=== PATIENT | male | born 1950 | race Caucasian/White ===

== ENCOUNTER 2020-08-20 18:45 | Inpatient (IN) | payer MEDICARE, BC, OTHER ==
[2020-08-20] MEDS ORDERED: Sodium Chloride 0.9% 10 ML Syringe FLUSH PRN (19:17)
--- NOTE | 2020-08-20 20:26 | CR ---
HISTORY: Shortness of breath. COVID-19 positive. COMPARISON: None available FINDINGS: A portable erect AP view of the chest was obtained at 1946 hours. There is mild right greater than left superior perihilar patchy infiltrate, along with mild patchy right infrahilar infiltrate. Findings are suggestive of an atypical pneumonia such as COVID-19 infection. There is a tiny left pleural effusion. There is mild patchy density in the left lateral lung base, probably atelectasis. No vascular engorgement is seen to suggest congestive failure. The heart is mildly enlarged. The mediastinum is otherwise normal in appearance. The osseous structures are normal in appearance for the patient`s age. IMPRESSION: Mild patchy right greater than left superior perihilar and mild right infrahilar infiltrates, consistent with an atypical pneumonia such as COVID-19. Tiny left pleural effusion. Heart mildly enlarged. Dictated by Ben Ford MD @ Aug 20 2020 8:21PM Signed by Dr. Ben Ford @ Aug 20 2020 8:23PM
[2020-08-20 20:27] LABS: BLOOD UREA NITROGEN,BUN 28 mg/dL (7.0-18.0); CARBON DIOXIDE,CO2 22.6 mmol/L (21.0-32.0); CHLORIDE,CL 97 mmol/L (98-107); GLUCOSE RANDOM 186 mg/dL (74-106); POTASSIUM,K 3.7 mmol/L (3.5-5.1); SODIUM,NA 133 mmol/L (136-148)
[2020-08-20] MEDS ORDERED: Acetaminophen 325 MG Tab PO PRN (21:37)
--- NOTE | 2020-08-20 21:44 | PCM.HP.2 ---
H&P History of Present Illness - General Date of Service: 08/20/20 Admit Problem/Dx: Admission Diagnosis/Problem Admission Diagnosis/Problem Respiratory failure with hypoxia - History of Present Illness Initial Comments - Free Text/Narative: his 65 year old male, with PMH of IN, HTN, hypercholesteremia, COPD and hx of SBO came in for evaluation of SOB and increasing fatigue. He was diagnosed with covid 19 in last week of July, was checked in [facility], started on oral doxy and dexamethasone. He says he has only 1 pill left of his meds. But over last few days his oxygen saturation has been dropping, so he came t the ER. In the ER his oxygen saturation was 78%. He was started on 5l nasal cannula. CXR co nsistent with atypical PNA. Troponin neg, EKG unremarkable to acute ischemia. He was admitted for covid pneumonia. - Related Data Allergies/Adverse Reactions: Allergies Allergy/AdvReac Type Severity Reaction Status Date / Time No Known Allergies Allergy Verified 08/20/20 21:56 Home Medications: Home Meds Acetaminophen [Tylenol Extra Strength] 1 tab PO BID 07/07/15 [History] Aspirin [Halfprin] 1 tab PO DAILY 07/07/15 [History] Fenofibrate Nanocrystallized [Fenofibrate] 1 tab PO DAILY 07/07/15 [History] Olmesartan Medoxomil [Benicar] 1 tab PO DAILY 07/07/15 [History] Omeprazole 1 tab PO ASDIRECTED 07/07/15 [History] Sildenafil Citrate [Viagra] 1 tab PO ASDIRECTED 07/07/15 [History] Simvastatin [Zocor] 20 mg PO DAILY 07/07/15 [History] amLODIPine Besylate [Amlodipine Besylate] 10 mg PO DAILY 07/07/15 [History] carvediloL [Carvedilol] 0.5 tab PO BID 07/07/15 [History] Budesonide/Formoterol Fumarate [Symbicort 160-4.5 Mcg Inhaler] 2 puff INH BID 08/20/20 [History] Doxycycline [Vibramycin] 1 tab PO BID 08/20/20 [History] cycloSPORINE [Restasis Multidose] 1 drop EYEBOTH BID 08/20/20 [History] dexAMETHasone [Dexamethasone] 1 tab PO BID 08/20/20 [History] Past Medical History Cardiovascular History: Reports: High Cholesterol, Hypertension, IN Respiratory History: Reports: COPD Musculoskeletal History: Reports: Arthritis - Infectious Disease History Infectious Disease History: Reports: Novel Coronavirus - Past Surgical History Musculoskeletal Surgical History: Reports: Joint Replacement, Shoulder Surgery Social & Family History - Tobacco Use Smoking Status *Q: Never Smoker - Recreational Drug Use Recreational Drug Use: No H&P Review of Systems - Review of Systems: Review Of Systems: See Below General: Reports: Malaise, Weakness, Fatigue. Denies: Fever, Chills Pulmonary: Reports: Shortness of Breath, Cough, Sputum. Denies: Wheezing Cardiovascular: Reports: Dyspnea on Exertion. Denies: Chest Pain, Palpitations, Orthopnea, PND, Edema, Lightheadedness Gastrointestinal: Denies: Abdominal Pain, Anorexia, Bloody Stool, Constipation, Hematochezia, Melena Genitourinary: Denies: Dysuria, Frequency, Burning, Pain Musculoskeletal: Denies: Neck Pain, Shoulder Pain, Arm Pain Skin: Denies: Cyanosis, Jaundice, Mottled, Pallor Psychiatric: Denies: Confusion, Depression, Mood Lability Exam - Exam Exam: See Below - Vital Signs Vital Signs: Last Vital Signs Temp 36.0 C L 08/20/20 18:48 Pulse 84 08/20/20 18:48 Resp 28 H 08/20/20 18:48 BP 133/83 08/20/20 18:48 Pulse Ox 78 L 08/20/20 18:48 Weight: 122.47 kg - Exam General: Alert, Oriented Neck: Supple, Trachea Midline Lungs: Normal Respiratory Effort, Crackles, Rhonchi Cardiovascular: Regular Rate, Regular Rhythm, Normal S1, Normal S2 GI/Abdominal Exam: Normal Bowel Sounds, Soft, Non-Tender - Patient Data Lab Results Last 24 hrs: Laboratory Results - last 24 hr 08/20/20 08/20/20 Range/Units 19:36 19:36 INR 1.07 D-Dimer, Quantitative 0.52 H (0.0-0.50) mg/L FEU Sodium 133 L (136-148) mmol/L Potassium 3.7 (3.5-5.1) mmol/L Chloride 97 L (98-107) mmol/L Carbon Dioxide 22.6 (21.0-32.0) mmol/L BUN 28 H (7.0-18.0) mg/dL Creatinine 1.3 (0.8-1.3) mg/dL Est Cr Clr Drug Dosing 56.38 mL/min Estimated GFR (MDRD) 54.3 ml/min Glucose 186 H (74-106) mg/dL Calcium 8.6 (8.5-10.1) mg/dL Total Bilirubin 0.5 (0.2-1.0) mg/dL AST 21 (15-37) IU/L ALT 24 (14-63) IU/L Alkaline Phosphatase 49 (46-116) U/L Troponin I < 0.050 (0.000-0.056) ng/mL Total Protein 7.2 (6.4-8.2) g/dL Albumin 3.1 L (3.4-5.0) g/dL Globulin 4.1 H (2.6-4.0) g/dL Albumin/Globulin Ratio 0.8 L (0.9-1.6) Result Diagrams: 08/20/20 21:12 08/20/20 19:36 Sepsis Event Note - Evaluation Sepsis Screening Result: No Definite Risk - Focused Exam Vital Signs: Vital Signs Temp Pulse Resp BP Pulse Ox 08/20/20 18:48 36.0 C L 84 28 H 133/83 78 L - Problem List (1) COVID-19 SNOMED Code(s): 986190708 ICD Code: U07.1 - COVID-19 Status: Acute Current Visit: Yes (2) Hypoxia SNOMED Code(s): 776367267 ICD Code: R09.02 - HYPOXEMIA Status: Acute Current Visit: Yes (3) H/O acute myocardial infarction SNOMED Code(s): 437901909 ICD Code: I25.2 - OLD MYOCARDIAL INFARCTION Status: Chronic Priority: Low Current Visit: No (4) HTN (hypertension) SNOMED Code(s): 10044418 ICD Code: I10 - ESSENTIAL (PRIMARY) HYPERTENSION Status: Chronic Priority: Low Current Visit: No Qualifiers: Hypertension type: essential hypertension Qualified Code(s): I10 - Essential (primary) hypertension (5) Hypercholesteremia SNOMED Code(s): 67073178 ICD Code: E78.0 - PURE HYPERCHOLESTEROLEMIA * DO NOT USE * Status: Chronic Priority: Low Current Visit: No (6) Rheumatoid arthritis SNOMED Code(s): 81208522 ICD Code: M06.9 - RHEUMATOID ARTHRITIS, UNSPECIFIED Status: Chronic Priority: Low Current Visit: No Qualifiers: Rheumatoid arthritis location: unspecified site Rheumatoid factor presence: unspecified presence Qualified Code(s): M06.9 - Rheumatoid arthritis, unspecified (7) Sleep apnea SNOMED Code(s): 61660117 ICD Code: G47.30 - SLEEP APNEA, UNSPECIFIED Status: Chronic Priority: Low Current Visit: No Qualifiers: Sleep apnea type: unspecified type Qualified Code(s): G47.30 - Sleep apnea, unspecified Problem List Initiated/Reviewed/Updated: Yes Orders Last 24hrs: Active Orders 24 hr Category Date Time Status Admission Status [Patient Status] [ADT] Stat ADT 08/20/20 20:53 Active Ambulate [RC] ASDIRECTED Care 08/20/20 21:37 Active Antiembolic Devices [RC] PER UNIT ROUTINE Care 08/20/20 21:38 Active Cardiac Monitoring [RC] . DIRECTED Care 08/20/20 19:17 Active EKG 12 Lead [EKG Documentation Completion] [RC] STAT Care 08/20/20 18:55 Active Oxygen Therapy [RC] PRN Care 08/20/20 21:37 Active Pulse Oximetry [RC] ASDIRECTED Care 08/20/20 19:17 Active VTE/DVT Education [RC] PER UNIT ROUTINE Care 08/20/20 21:37 Active Vital Signs [RC] Q4H Care 08/20/20 21:37 Active Heart Healthy Diet [DIET] Diet 08/20/20 Dinner Active CBC WITH AUTO DIFF [HEME] AM Lab 08/21/20 05:11 Ordered CBC WITH AUTO DIFF [HEME] Stat Lab 08/20/20 21:12 Received CMP [COMPREHENSIVE METABOLIC PN,CMP] [CHEM] AM Lab 08/21/20 05:11 Ordered CORONAVIRUS COVID-19 MANAS [MOLEC] Stat Lab 08/20/20 20:55 Received MAGNESIUM [CHEM] AM Lab 08/21/20 05:11 Ordered PHOSPHORUS [CHEM] AM Lab 08/21/20 05:11 Ordered Acetaminophen [TylenoL] Med 08/20/20 21:37 Active 650 mg PO Q4H PRN Enoxaparin [Lovenox] Med 08/20/20 21:45 Active 40 mg SUBCUT BID Remdesivir (Eua) [Remdesivir (EUA)] 100 mg Med 08/21/20 09:00 Ordered Sodium Chloride 0.9% [Normal Saline] 100 ml IV Q24H Sodium Chloride 0.9% [Saline Flush] Med 08/20/20 19:17 Active 10 ml FLUSH ASDIRECTED PRN Sodium Chloride 0.9% [Saline Flush] Med 08/20/20 19:17 Active 2.5 ml FLUSH ASDIRECTED PRN dexAMETHasone Med 08/20/20 21:45 Active 10 mg PO DAILY Saline Lock Insert [OM.PC] Stat Oth 08/20/20 19:17 Ordered Sequential Compression Device [OM.PC] Per Unit Routine Oth 08/20/20 21:38 Ordered Medication Orders Acetaminophen (Tylenol) 650 mg PO Q4H PRN PRN Reason: Pain (Mild 1-3)/fever Dexamethasone (Dexamethasone) 10 mg PO DAILY SERGIO Enoxaparin Sodium (Lovenox) 40 mg SUBCUT BID SERGIO Remdesivir 100 mg/ Sodium (Chloride) 100 mls @ 100 mls/hr IV Q24H SERGIO Sodium Chloride (Saline Flush) 10 ml FLUSH ASDIRECTED PRN PRN Reason: Keep Vein Open Sodium Chloride (Saline Flush) 2.5 ml FLUSH ASDIRECTED PRN PRN Reason: Keep Vein Open Assessment/Plan Comment:: 70 y/o M admitted for covid PNA, hypoxic respiratory failure h/o COPD, sleep apnea, not on home o2 oxygen as needed, cont dexamethasone, Remdesivir and BID lovenox. IV Levaquin Combivent prn as needed CPAP at night Patient given fact sheet and explain emergency use FDA authorization of Remdesivir. He was explained side effects including hepatitis and anaphylaxis and consents to treatment.
[2020-08-20] MEDS ORDERED: Albuterol/Ipratropium 4 GM Inhalation Spray INH PRN (22:49)
[2020-08-20] MEDS ORDERED: Acetaminophen 500 MG Tab PO SCH (23:00)
[2020-08-20] MEDS: Dexamethasone 4 MG Tab PO SCH (23:13)
[2020-08-20] MEDS: Enoxaparin 40 MG/0.4 ML Syringe SUBCUT SCH (23:15)
[2020-08-21] MEDS: Levofloxacin/Dextrose 5%-Water 750 MG in Premix Bag 1 BAG IV SCH ×2 (00:50→22:30)
--- NOTE | 2020-08-21 03:18 | EDM.PDOC ---
ED HPI GENERAL MEDICAL PROBLEM - General Chief Complaint: Respiratory Problem Stated Complaint: COPD, COVID Time Seen by Provider: 08/20/20 18:54 - History of Present Illness INITIAL COMMENTS - FREE TEXT/NARRATIVE: CHIEF COMPLAINT(S): Shortness of breath HISTORY OF PRESENT ILLNESS: This is a 70-year-old man with a recent diagnosis of coronavirus who is currently on dexamethasone who comes to the emergency department with a chief complaint of shortness of breath. The patient states that he is was diagnosed approximately 8 days ago with coronavirus. He states that since that time he was discharged from the emergency department at another institution with dexamethasone twice a day. He states that he was starting to feel better and then did experience some increase shortness of breath today. He states that he does have a cough which is nonproductive. He denies any chest pain, abdominal pain, nausea or vomiting. He states that he came to the emergency department because his oxygen saturation at home was 84% on room air. He denies any headache or any other symptoms. REVIEW OF SYSTEMS: [Constitutional: Denies fever, chills. Eyes: Denies eye pain Ears, Nose, Mouth, & Throat: Denies earache Cardiovascular: Denies chest pain Respiratory: Positive for shortness of breath and cough Gastrointestinal: Denies Nausea, vomiting, diarrhea, hematochezia. Genitourinary: Denies hematuria Skin:Denies a rash Neurological: Denies blurred vision Psychiatric: Denies depression] PAST MEDICAL HISTORY: As per history of present illness and as reviewed below otherwise noncontributory. SURGICAL HISTORY: As per history of present illness and as reviewed below otherwise noncontributory. SOCIAL HISTORY: As per history of present illness and as reviewed below otherwise noncontributory. FAMILY HISTORY: As per history of present illness and as reviewed below otherwise noncontributory. EXAMINATION OF ORGAN SYSTEMS/BODY AREAS: Constitutional: Blood pressure was 133/83, heart rate 84, respiratory rate 28 with a oxygen saturation of 78% on room air. 92% on 5 L nasal cannula. Temperature 36.0 General: Elderly gentleman who appears to be in mild respiratory distress. Psychiatric: [Appropriate mood and affect.] Eyes: [No scleral icterus or conjunctival erythema] ENMT: [Moist mucous membranes. No pharyngeal erythema] Cardiovascular: [Regular, rate, and rythym.] [No gallops, murmurs, or rubs.] Bilateral upper extremity pulses symmetric and intact. No peripheral edema. No JVD. Respiratory: [Lungs clear to auscultation bilaterally.][No wheezes, rales, or rhonchi.] Tachypneic but speaking in full sentences Gastrointestinal: [Soft, non-tender, non-distended.] [Normoactive bowel sounds] Genitourinary: [No suprapubic tenderness] Musculoskeletal: [Normal range of motion.] Skin: [No lesions or abrasions.] Neurological: [Alert, GCS 15] MEDICAL DECISION MAKING AND COURSE IN THE ED WITH INTERPRETATION/REVIEW OF DIAGNOSTIC STUDIES: This is a 70-year-old man with a recent diagnosis of coronavirus who comes to the emergency department with hypoxia and tachypnea who is speaking well but in mild respiratory distress. At this time we did place the patient on nasal cannula given his room air saturation with improvement in his saturation. We will obtain CBC, CMP, troponin, d-dimer, and coags. Will obtain a chest x-ray. Will place patient on cardiac monitoring and pulse oximetry. The radiological images were viewed by myself along with reading the report from the radiologist. Chest x-ray reveals mild patchy right greater than left suprahilar perihilar and mid right infrahilar infiltrates consistent with atypical pneumonia such as COVID. There is a tiny left pleural effusion and cardiomegaly. Twelve-lead EKG interpreted by myself. [Normal sinus rhythm] at a rate of 68beats per minute. Left axis. OH interval is 139ms. QRS duration is 118ms. ST segments are [normal without elevations or depressions]. Solitary Q wave in lead V2. [Hypertrophy not noted]. No prior EKGs in our system interpretation: Sinus rhythm with mildly widened QRS and likely old anterior septal infarct Laboratory: CBC reveals leukocytosis of 12.35. Thrombocytopenia at 114. Neutrophilic predominance. CMP reveals hyponatremia at 133, hypochloremia at 97 without any acidosis. Hyperglycemia at 186. Troponin x1 is negative. D-dimer is slightly above normal at 0.52. Coags are within normal limits After labs and imaging I did discuss with patient that given his oxygen requirement I like to admit him to the hospital. He was amenable to this plan. I contacted Dr. Veras who accepted the patient for admission. DISPOSITION: The patient was admitted in stable condition CONDITION: Fair PROCEDURES: [None] FINAL IMPRESSION(S)/DIAGNOSES: 1. Acute hypoxic respiratory failure secondary to coronavirus Steve Coronel M.D. - Related Data Allergies Allergy/AdvReac Type Severity Reaction Status Date / Time No Known Allergies Allergy Verified 08/20/20 21:56 Home Meds: Home Meds Acetaminophen [Tylenol Extra Strength] 1 tab PO BID 07/07/15 [History] Aspirin [Halfprin] 1 tab PO DAILY 07/07/15 [History] Fenofibrate Nanocrystallized [Fenofibrate] 1 tab PO DAILY 07/07/15 [History] Olmesartan Medoxomil [Benicar] 1 tab PO DAILY 07/07/15 [History] Omeprazole 1 tab PO ASDIRECTED 07/07/15 [History] Sildenafil Citrate [Viagra] 1 tab PO ASDIRECTED 07/07/15 [History] Simvastatin [Zocor] 20 mg PO DAILY 07/07/15 [History] amLODIPine Besylate [Amlodipine Besylate] 10 mg PO DAILY 07/07/15 [History] carvediloL [Carvedilol] 0.5 tab PO BID 07/07/15 [History] Albuterol Sulfate [Albuterol Sulfate Hfa] 2 puff IH Q4HR PRN 08/20/20 [History] Budesonide/Formoterol Fumarate [Symbicort 160-4.5 Mcg Inhaler] 2 puff INH BID [History] Doxycycline [Vibramycin] 1 tab PO BID 08/20/20 [History] cycloSPORINE [Restasis Multidose] 1 drop EYEBOTH BID 08/20/20 [History] dexAMETHasone [Dexamethasone] 1 tab PO BID 08/20/20 [History] Past Medical History HEENT History: Reports: Other (See Below) Other HEENT History: dry eyes Cardiovascular History: Reports: High Cholesterol, Hypertension, ID Respiratory History: Reports: COPD Other Respiratory History: CPAP at night Gastrointestinal History: Reports: Hiatal Hernia Musculoskeletal History: Reports: Arthritis Immunologic History: Reports: None Oncologic (Cancer) History: Reports: None - Infectious Disease History Infectious Disease History: Reports: Novel Coronavirus - Past Surgical History Musculoskeletal Surgical History: Reports: Joint Replacement, Shoulder Surgery Social & Family History - Family History Family Medical History: Noncontributory - Tobacco Use Smoking Status *Q: Never Smoker Used Tobacco, but Quit: Yes Month/Year Tobacco Last Used: 40 years ago Second Hand Smoke Exposure: No - Caffeine Use Caffeine Use: Reports: Coffee Other Caffeine Use: 1 or 2 cups per day - Alcohol Use Days Per Week of Alcohol Use: 7 Number of Drinks Per Day: 1 Total Drinks Per Week: 7 Date of Last Drink: 08/20/20 Time of Last Drink: 13:00 - Recreational Drug Use Recreational Drug Use: No ED ROS GENERAL - Review of Systems Review Of Systems: See Below ED EXAM, GENERAL - Physical Exam Exam: See Below GI/Abdominal: Normal Bowel Sounds, Soft, Non-Tender Course - Vital Signs Last Recorded V/S: Last Vital Signs Temp 37.1 C 08/21/20 00:00 Pulse 53 L 08/21/20 00:00 Resp 25 H 08/21/20 00:00 BP 119/65 08/21/20 00:00 Pulse Ox 93 L 08/21/20 00:00 - Orders/Labs/Meds Orders: Active Orders 24 hr Category Date Time Status Cardiac Monitoring [RC] . DIRECTED Care 08/20/20 19:17 Active Pulse Oximetry [RC] ASDIRECTED Care 08/20/20 19:17 Active Sodium Chloride 0.9% [Saline Flush] Med 08/20/20 19:17 Active 10 ml FLUSH ASDIRECTED PRN Sodium Chloride 0.9% [Saline Flush] Med 08/20/20 19:17 Active 2.5 ml FLUSH ASDIRECTED PRN Saline Lock Insert [OM.PC] Stat Oth 08/20/20 19:17 Ordered Medication Orders Acetaminophen (Tylenol) 650 mg PO Q4H PRN PRN Reason: Pain (Mild 1-3)/fever Albuterol/Ipratropium (Combivent Respimat) 0 gm INH Q4H PRN PRN Reason: Dyspnea Amlodipine Besylate (Norvasc) 10 mg PO DAILY PENDING SALE TO [facility] Artificial Tears (Liquitears 1.4% Ophth Soln) 0 ml EYEBOTH BID PENDING SALE TO [facility] Aspirin (Halfprin) 81 mg PO DAILY PENDING SALE TO [facility] Budesonide/Formoterol Fumarate (Symbicort 160-4.5 Mcg) 0 gm INH BID PENDING SALE TO [facility] Carvedilol (Coreg) 12.5 mg PO BID PENDING SALE TO [facility] Dexamethasone (Dexamethasone) 10 mg PO DAILY PENDING SALE TO [facility] Last Admin: 08/20/20 23:13 Dose: 10 mg Documented by: GABRIELLA Enoxaparin Sodium (Lovenox) 40 mg SUBCUT BID PENDING SALE TO [facility] Last Admin: 08/20/20 23:15 Dose: 40 mg Documented by: GABRIELLA Remdesivir 100 mg/ Sodium (Chloride) 100 mls @ 100 mls/hr IV Q24H PENDING SALE TO [facility] Stop: 08/24/20 22:59 Levofloxacin/Dextrose 750 mg/ (Premix) 150 mls @ 100 mls/hr IV Q24H PENDING SALE TO [facility] Last Admin: 08/21/20 00:50 Dose: 100 mls/hr Documented by: GABRIELLA Pantoprazole Sodium 40 mg/ (Sodium Chloride) 10 mls @ 300 mls/hr IV DAILY PENDING SALE TO [facility] Influenza Virus Vaccine (Fluzone High-Dose Quad ) 240 mcg IM .ONCE ONE Stop: 08/21/20 09:01 Non-Formulary Medication (Fenofibrate Nanocrystallized) 1 tab PO DAILY PENDING SALE TO [facility] Sodium Chloride (Saline Flush) 10 ml FLUSH ASDIRECTED PRN PRN Reason: Keep Vein Open Sodium Chloride (Saline Flush) 2.5 ml FLUSH ASDIRECTED PRN PRN Reason: Keep Vein Open Labs: Laboratory Tests 08/20/20 08/20/20 Range/Units 19:36 19:36 INR 1.07 D-Dimer, Quantitative 0.52 H (0.0-0.50) mg/L FEU Sodium 133 L (136-148) mmol/L Potassium 3.7 (3.5-5.1) mmol/L Chloride 97 L (98-107) mmol/L Carbon Dioxide 22.6 (21.0-32.0) mmol/L BUN 28 H (7.0-18.0) mg/dL Creatinine 1.3 (0.8-1.3) mg/dL Est Cr Clr Drug Dosing 56.38 mL/min Estimated GFR (MDRD) 54.3 ml/min Glucose 186 H (74-106) mg/dL Calcium 8.6 (8.5-10.1) mg/dL Total Bilirubin 0.5 (0.2-1.0) mg/dL AST 21 (15-37) IU/L ALT 24 (14-63) IU/L Alkaline Phosphatase 49 (46-116) U/L Troponin I < 0.050 (0.000-0.056) ng/mL Total Protein 7.2 (6.4-8.2) g/dL Albumin 3.1 L (3.4-5.0) g/dL Globulin 4.1 H (2.6-4.0) g/dL Albumin/Globulin Ratio 0.8 L (0.9-1.6) Meds: Medications Generic Name Dose Route Start Last Admin Trade Name Freq PRN Reason Stop Dose Admin Acetaminophen 650 mg 08/20/20 21:37 Tylenol PO Q4H PRN Pain (Mild 1-3)/fever Albuterol/Ipratropium 0 gm 08/20/20 22:49 Combivent Respimat INH Q4H PRN Dyspnea Amlodipine Besylate 10 mg 08/21/20 09:00 Norvasc PO DAILY PENDING SALE TO [facility] Artificial Tears 0 ml 08/21/20 09:00 Liquitears 1.4% Ophth Soln EYEBOTH BID PENDING SALE TO [facility] Aspirin 81 mg 08/21/20 09:00 Halfprin PO DAILY PENDING SALE TO [facility] Budesonide/Formoterol Fumarate 0 gm 08/21/20 09:00 Symbicort 160-4.5 Mcg INH BID PENDING SALE TO [facility] Carvedilol 12.5 mg 08/21/20 09:00 Coreg PO BID PENDING SALE TO [facility] Dexamethasone 10 mg 08/20/20 21:45 08/20/20 23:13 Dexamethasone PO 10 mg DAILY PENDING SALE TO [facility] Administration Enoxaparin Sodium 40 mg 08/20/20 21:45 08/20/20 23:15 Lovenox SUBCUT 40 mg BID PENDING SALE TO [facility] Administration Remdesivir 100 mg/ Sodium 100 mls @ 100 mls/hr 08/21/20 22:00 Chloride IV 08/24/20 22:59 Q24H SERGIO Levofloxacin/Dextrose 750 mg/ 150 mls @ 100 mls/hr 08/20/20 23:00 08/21/20 00:50 Premix IV 100 mls/hr Q24H SERGIO Administration Pantoprazole Sodium 40 mg/ 10 mls @ 300 mls/hr 08/21/20 09:00 Sodium Chloride IV DAILY PENDING SALE TO [facility] Influenza Virus Vaccine 240 mcg 08/21/20 09:00 Fluzone High-Dose Quad 2020-21 IM 08/21/20 09:01 .ONCE ONE Non-Formulary Medication 1 tab 08/21/20 09:00 Fenofibrate Nanocrystallized PO DAILY SERGIO Sodium Chloride 10 ml 08/20/20 19:17 Saline Flush FLUSH ASDIRECTED PRN Keep Vein Open Sodium Chloride 2.5 ml 08/20/20 19:17 Saline Flush FLUSH ASDIRECTED PRN Keep Vein Open Discontinued Medications Generic Name Dose Route Start Last Admin Trade Name Freq PRN Reason Stop Dose Admin Acetaminophen 500 mg 08/20/20 23:00 Tylenol Extra Strength PO BID SERGIO Remdesivir 200 mg/ Sodium 250 mls @ 250 mls/hr 08/20/20 21:39 08/20/20 23:33 Chloride IV 08/20/20 21:40 250 mls/hr ONETIME ONE Administration Departure - Departure Time of Disposition: 20:53 Disposition: Admitted As Inpatient 64 Clinical Impression: Hypoxia - Discharge Information Sepsis Event Note (ED) - Evaluation Sepsis Screening Result: No Definite Risk - Focused Exam Vital Signs: Vital Signs Temp Pulse Resp BP Pulse Ox 08/20/20 20:19 77 114/97 H 92 L 08/20/20 18:48 36.0 C L 84 28 H 133/83 78 L - My Orders Last 24 Hours: My Active Orders 08/20/20 19:17 Cardiac Monitoring [RC] . DIRECTED Pulse Oximetry [RC] ASDIRECTED Sodium Chloride 0.9% [Saline Flush] 10 ml FLUSH ASDIRECTED PRN Sodium Chloride 0.9% [Saline Flush] 2.5 ml FLUSH ASDIRECTED PRN Saline Lock Insert [OM.PC] Stat - Assessment/Plan Last 24 Hours: My Active Orders 08/20/20 19:17 Cardiac Monitoring [RC] . DIRECTED Pulse Oximetry [RC] ASDIRECTED Sodium Chloride 0.9% [Saline Flush] 10 ml FLUSH ASDIRECTED PRN Sodium Chloride 0.9% [Saline Flush] 2.5 ml FLUSH ASDIRECTED PRN Saline Lock Insert [OM.PC] Stat
[2020-08-21 07:08] LABS: BLOOD UREA NITROGEN,BUN 23 mg/dL (7.0-18.0); CARBON DIOXIDE,CO2 26.6 mmol/L (21.0-32.0); CHLORIDE,CL 101 mmol/L (98-107); GLUCOSE RANDOM 170 mg/dL (74-106); POTASSIUM,K 4.1 mmol/L (3.5-5.1); SODIUM,NA 137 mmol/L (136-148)
[2020-08-21] MEDS: Carvedilol 25 MG Tab PO SCH ×2 (08:40→20:00)
[2020-08-21] MEDS: Aspirin 81 MG Tab.EC PO SCH (08:44)
[2020-08-21] MEDS: Dexamethasone 4 MG Tab PO SCH ×2 (08:44→09:38)
[2020-08-21] MEDS: amLODIPine 5 MG Tab PO SCH (08:45)
[2020-08-21] MEDS: Enoxaparin 40 MG/0.4 ML Syringe SUBCUT SCH ×2 (08:45→20:01)
[2020-08-21] MEDS: Pantoprazole 40 MG in Sodium Chloride 0.9% 10 ML IV SCH (08:46)
[2020-08-21] MEDS ORDERED: FLU Vacc QV2020-21(65YR UP)/PF 240 MCG/0.7 ML Syringe IM ONE (09:00)
[2020-08-21] MEDS: Budesonide/Formoterol 160-4.5 MCG/Puff 6 GM Inhaler INH SCH ×2 (09:59→20:04)
[2020-08-21] MEDS: Polyvinyl Alcohol 1.4% Ophth Soln 15 ML Bottle EYEBOTH SCH ×2 (11:16→20:01)
--- NOTE | 2020-08-21 12:17 | PCM.PN ---
- General Info Date of Service: 08/21/20 Admission Dx/Problem (Free Text): Admission Diagnosis/Problem Admission Diagnosis/Problem Respiratory failure with hypoxia Functional Status: Reports: Tolerating Diet, Urinating. Denies: Ambulating - Review of Systems General: Reports: Weakness, Fatigue, Malaise. Denies: Fever Pulmonary: Reports: Shortness of Breath, Cough, Sputum Cardiovascular: Reports: Dyspnea on Exertion. Denies: Chest Pain, Palpitations, Orthopnea Gastrointestinal: Denies: Abdominal Pain, Constipation, Decreased Appetite, Diarrhea Genitourinary: Denies: Dysuria, Frequency, Burning, Pain, Urgency Musculoskeletal: Denies: Neck Pain, Shoulder Pain, Arm Pain Skin: Denies: Cyanosis, Jaundice, Mottled - Patient Data Vitals - Most Recent: Last Vital Signs Temp 36.6 C 08/21/20 04:10 Pulse 77 08/21/20 08:40 Resp 25 H 08/21/20 05:59 BP 136/85 08/21/20 08:45 Pulse Ox 92 L 08/21/20 05:59 Weight - Most Recent: 120.565 kg I&O - Last 24 Hours: Intake & Output 08/20/20 08/21/20 08/21/20 22:59 06:59 14:59 Intake Total 1000 Output Total 1400 Balance -400 Lab Results Last 24 Hours: Laboratory Results - last 24 hr 08/20/20 08/20/20 08/20/20 Range/Units 19:36 19:36 20:55 WBC (4.0-11.0) K/uL RBC (4.50-5.90) M/uL Hgb (13.0-17.0) g/dL Hct (38.0-50.0) % MCV (80.0-98.0) fL MCH (27.0-32.0) pg MCHC (31.0-37.0) g/dL RDW Std Deviation (28.0-62.0) fl RDW Coeff of Bailee (11.0-15.0) % Plt Count (150-400) K/uL MPV (7.40-12.00) fL Neut % (Auto) (48.0-80.0) % Lymph % (Auto) (16.0-40.0) % [place] % (Auto) (0.0-15.0) % Eos % (Auto) (0.0-7.0) % Baso % (Auto) (0.0-1.5) % Neut # (Auto) (1.4-5.7) K/uL Lymph # (Auto) (0.6-2.4) K/uL [place] # (Auto) (0.0-0.8) K/uL Eos # (Auto) (0.0-0.7) K/uL Baso # (Auto) (0.0-0.1) K/uL Nucleated RBC % /100WBC Nucleated RBCs # K/uL INR 1.07 D-Dimer, Quantitative 0.52 H (0.0-0.50) mg/L FEU Sodium 133 L (136-148) mmol/L Potassium 3.7 (3.5-5.1) mmol/L Chloride 97 L (98-107) mmol/L Carbon Dioxide 22.6 (21.0-32.0) mmol/L BUN 28 H (7.0-18.0) mg/dL Creatinine 1.3 (0.8-1.3) mg/dL Est Cr Clr Drug Dosing 56.38 mL/min Estimated GFR (MDRD) 54.3 ml/min Glucose 186 H (74-106) mg/dL Calcium 8.6 (8.5-10.1) mg/dL Phosphorus (2.6-4.7) mg/dL Magnesium (1.8-2.4) mg/dL Total Bilirubin 0.5 (0.2-1.0) mg/dL AST 21 (15-37) IU/L ALT 24 (14-63) IU/L Alkaline Phosphatase 49 (46-116) U/L Troponin I < 0.050 (0.000-0.056) ng/mL Total Protein 7.2 (6.4-8.2) g/dL Albumin 3.1 L (3.4-5.0) g/dL Globulin 4.1 H (2.6-4.0) g/dL Albumin/Globulin Ratio 0.8 L (0.9-1.6) SARS-CoV-2 RNA (MANAS) POSITIVE H (NEGATIVE) 08/20/20 08/21/20 08/21/20 Range/Units 21:12 06:19 06:19 WBC 12.35 H 6.55 (4.0-11.0) K/uL RBC 5.36 4.81 (4.50-5.90) M/uL Hgb 15.1 13.6 (13.0-17.0) g/dL Hct 46.2 41.3 (38.0-50.0) % MCV 86.2 85.9 (80.0-98.0) fL MCH 28.2 28.3 (27.0-32.0) pg MCHC 32.7 32.9 (31.0-37.0) g/dL RDW Std Deviation 44.1 44.0 (28.0-62.0) fl RDW Coeff of Bailee 14 14 (11.0-15.0) % Plt Count 114 L 146 L (150-400) K/uL MPV 10.60 10.40 (7.40-12.00) fL Neut % (Auto) 86.3 H 87.3 H (48.0-80.0) % Lymph % (Auto) 5.6 L 6.4 L (16.0-40.0) % [place] % (Auto) 8.0 6.3 (0.0-15.0) % Eos % (Auto) 0.0 0.0 (0.0-7.0) % Baso % (Auto) 0.1 0.0 (0.0-1.5) % Neut # (Auto) 10.7 H 5.7 (1.4-5.7) K/uL Lymph # (Auto) 0.7 0.4 L (0.6-2.4) K/uL [place] # (Auto) 1.0 H 0.4 (0.0-0.8) K/uL Eos # (Auto) 0.0 0.0 (0.0-0.7) K/uL Baso # (Auto) 0.0 0.0 (0.0-0.1) K/uL Nucleated RBC % 0.0 0.0 /100WBC Nucleated RBCs # 0 0 K/uL INR D-Dimer, Quantitative (0.0-0.50) mg/L FEU Sodium 137 (136-148) mmol/L Potassium 4.1 (3.5-5.1) mmol/L Chloride 101 (98-107) mmol/L Carbon Dioxide 26.6 (21.0-32.0) mmol/L BUN 23 H (7.0-18.0) mg/dL Creatinine 1.1 (0.8-1.3) mg/dL Est Cr Clr Drug Dosing 66.63 mL/min Estimated GFR (MDRD) > 60.0 ml/min Glucose 170 H (74-106) mg/dL Calcium 8.4 L (8.5-10.1) mg/dL Phosphorus 3.1 (2.6-4.7) mg/dL Magnesium 1.9 (1.8-2.4) mg/dL Total Bilirubin 0.5 (0.2-1.0) mg/dL AST 16 (15-37) IU/L ALT 24 (14-63) IU/L Alkaline Phosphatase 44 L (46-116) U/L Troponin I (0.000-0.056) ng/mL Total Protein 6.5 (6.4-8.2) g/dL Albumin 2.7 L (3.4-5.0) g/dL Globulin 3.8 (2.6-4.0) g/dL Albumin/Globulin Ratio 0.7 L (0.9-1.6) SARS-CoV-2 RNA (MANAS) (NEGATIVE) Med Orders - Current: Current Medications Acetaminophen (Tylenol) 650 mg PO Q4H PRN PRN Reason: Pain (Mild 1-3)/fever Albuterol/Ipratropium (Combivent Respimat) 0 gm INH Q4H PRN PRN Reason: Dyspnea Amlodipine Besylate (Norvasc) 10 mg PO DAILY [facility] Last Admin: 08/21/20 08:45 Dose: 10 mg Documented by: Artificial Tears (Liquitears 1.4% Ophth Soln) 0 ml EYEBOTH BID [facility] Last Admin: 08/21/20 11:16 Dose: 2 drop Documented by: Aspirin (Halfprin) 81 mg PO DAILY [facility] Last Admin: 08/21/20 08:44 Dose: 81 mg Documented by: Carvedilol (Coreg) 12.5 mg PO BID [facility] Last Admin: 08/21/20 08:40 Dose: 12.5 mg Documented by: Dexamethasone (Dexamethasone) 6 mg PO DAILY [facility] Last Admin: 08/21/20 09:38 Dose: Not Given Documented by: Enoxaparin Sodium (Lovenox) 40 mg SUBCUT BID [facility] Last Admin: 08/21/20 08:45 Dose: 40 mg Documented by: Remdesivir 100 mg/ Sodium (Chloride) 100 mls @ 100 mls/hr IV Q24H [facility] Stop: 08/24/20 22:59 Levofloxacin/Dextrose 750 mg/ (Premix) 150 mls @ 100 mls/hr IV Q24H [facility] Last Admin: 08/21/20 00:50 Dose: 100 mls/hr Documented by: Pantoprazole Sodium 40 mg/ (Sodium Chloride) 10 mls @ 300 mls/hr IV DAILY [facility] Last Admin: 08/21/20 08:46 Dose: 300 mls/hr Documented by: Budesonide/Formoterol 160-4.5 Mcg/Puff 6 Gm Inhaler 0 each INH BID [facility] Last Admin: 08/21/20 09:59 Dose: 2 each Documented by: Fenofibrate Nanocrystallized 145mg 1 each PO DAILY [facility] Sodium Chloride (Saline Flush) 10 ml FLUSH ASDIRECTED PRN PRN Reason: Keep Vein Open Sodium Chloride (Saline Flush) 2.5 ml FLUSH ASDIRECTED PRN PRN Reason: Keep Vein Open Discontinued Medications Acetaminophen (Tylenol Extra Strength) 500 mg PO BID [facility] Dexamethasone (Dexamethasone) 10 mg PO DAILY [facility] Last Admin: 08/21/20 08:44 Dose: 10 mg Documented by: Remdesivir 200 mg/ Sodium (Chloride) 250 mls @ 250 mls/hr IV ONETIME ONE Stop: 08/20/20 21:40 Last Admin: 08/20/20 23:33 Dose: 250 mls/hr Documented by: Influenza Virus Vaccine (Fluzone High-Dose Quad ) 240 mcg IM .ONCE ONE Stop: 08/21/20 09:01 - Exam Quality Assessment: Supplemental Oxygen General: Alert, Oriented, Cooperative Neck: Supple Lungs: Decreased Breath Sounds, Crackles, Rales Cardiovascular: Regular Rate, Regular Rhythm GI/Abdominal Exam: Normal Bowel Sounds, Soft, Non-Tender Sepsis Event Note - Evaluation Sepsis Screening Result: No Definite Risk - Focused Exam Vital Signs: Vital Signs Temp Pulse Pulse Resp BP BP Pulse Ox 08/21/20 08:45 136/85 08/21/20 08:40 77 136/85 08/21/20 05:59 61 25 H 92 L 08/21/20 04:10 36.6 C 55 L 25 H 131/82 91 L - Problem List & Annotations (1) COVID-19 SNOMED Code(s): 776862341 Code(s): U07.1 - COVID-19 Status: Acute Current Visit: Yes (2) Hypoxia SNOMED Code(s): 805002980 Code(s): R09.02 - HYPOXEMIA Status: Acute Current Visit: Yes (3) H/O acute myocardial infarction SNOMED Code(s): 008447954 Code(s): I25.2 - OLD MYOCARDIAL INFARCTION Status: Chronic Priority: Low Current Visit: No (4) HTN (hypertension) SNOMED Code(s): 60656597 Code(s): I10 - ESSENTIAL (PRIMARY) HYPERTENSION Status: Chronic Priority: Low Current Visit: No Qualifiers: Hypertension type: essential hypertension Qualified Code(s): I10 - Essen tial (primary) hypertension (5) Hypercholesteremia SNOMED Code(s): 97336807 Code(s): E78.0 - PURE HYPERCHOLESTEROLEMIA * DO NOT USE * Status: Chronic Priority: Low Current Visit: No (6) Rheumatoid arthritis SNOMED Code(s): 64030706 Code(s): M06.9 - RHEUMATOID ARTHRITIS, UNSPECIFIED Status: Chronic Priority: Low Current Visit: No Qualifiers: Rheumatoid arthritis location: unspecified site Rheumatoid factor presence: unspecified presence Qualified Code(s): M06.9 - Rheumatoid arthritis, unspecified (7) Sleep apnea SNOMED Code(s): 04571524 Code(s): G47.30 - SLEEP APNEA, UNSPECIFIED Status: Chronic Priority: Low Current Visit: No Qualifiers: Sleep apnea type: unspecified type Qualified Code(s): G47.30 - Sleep apnea, unspecified - Problem List Review Problem List Initiated/Reviewed/Updated: Yes - My Orders Last 24 Hours: My Active Orders 08/20/20 Dinner Heart Healthy Diet [DIET] 08/20/20 21:37 Ambulate [RC] ASDIRECTED Oxygen Therapy [RC] PRN VTE/DVT Education [RC] PER UNIT ROUTINE Vital Signs [RC] Q4H Acetaminophen [TylenoL] 650 mg PO Q4H PRN 08/20/20 21:38 Antiembolic Devices [RC] PER UNIT ROUTINE Sequential Compression Device [OM.PC] Per Unit Routine 08/20/20 21:45 Enoxaparin [Lovenox] 40 mg SUBCUT BID 08/20/20 21:56 Telemetry Monitoring [Cardiac Monitoring] [RC] Q8H 08/20/20 22:48 Resuscitation Status Routine 08/20/20 22:49 Albuterol/Ipratropium [Combivent Respimat] See Dose Instructions INH Q4H PRN 08/20/20 22:50 RT Post Treatment Assessment [RC] Click to Edit RT Pre-Treatment Assessment [RC] Click to Edit 08/20/20 22:51 RT Post Treatment Assessment [RC] Click to Edit RT Pre-Treatment Assessment [RC] Click to Edit 08/20/20 23:00 Levofloxacin/Dextrose 5%-Water [Levaquin in D5W 750 MG/150 ML] 750 mg Premix Bag 1 bag IV Q24H 08/21/20 01:08 Influenza Vaccine Charge [RC] .DISCHARGE 08/21/20 09:00 Aspirin [Halfprin] 81 mg PO DAILY Pantoprazole [ProTONIX IV] 40 mg Sodium Chloride 0.9% [Normal Saline] 10 ml IV DAILY Patient's Own Medication [Ptom] 0 each INH BID Patient's Own Medication [Ptom] 1 each PO DAILY Polyvinyl Alcohol [LiquiTears 1.4% Ophth Soln] 0 ml EYEBOTH BID amLODIPine [Norvasc] 10 mg PO DAILY carvediloL [Coreg] 12.5 mg PO BID dexAMETHasone 6 mg PO DAILY 08/21/20 22:00 Remdesivir (Eua) [Remdesivir (EUA)] 100 mg Sodium Chloride 0.9% [Normal Saline] 100 ml IV Q24H - Plan Plan:: 70 y/o M admitted for covid PNA, hypoxic respiratory failure h/o COPD, sleep apnea, not on home O2 although was recommended in the past oxygen as needed, cont dexamethasone, Remdesivir and BID lovenox. IV Levaquin Combivent prn as needed CPAP at night Patient given fact sheet and explain emergency use FDA authorization of Remdesivir. He was explained side effects including hepatitis and anaphylaxis and consents to treatment. Patient is requesting for oxygen concentrating for home upon dc
[2020-08-21] MEDS ORDERED: Furosemide 20 MG/2 ML VIAL IVPUSH ONE (20:30)
[2020-08-21] MEDS: REMDESIVIR (EUA) 100 MG in Sodium Chloride 0.9% 100 ML IV SCH (21:19)
[2020-08-22 06:21] LABS: BLOOD UREA NITROGEN,BUN 28 mg/dL (7.0-18.0); CARBON DIOXIDE,CO2 27.4 mmol/L (21.0-32.0); CHLORIDE,CL 102 mmol/L (98-107); GLUCOSE RANDOM 153 mg/dL (74-106); SODIUM,NA 139 mmol/L (136-148)
[2020-08-22] MEDS: Budesonide/Formoterol 160-4.5 MCG/Puff 6 GM Inhaler INH SCH ×2 (08:45→21:19)
[2020-08-22] MEDS: Aspirin 81 MG Tab.EC PO SCH (08:47)
[2020-08-22] MEDS: amLODIPine 5 MG Tab PO SCH (08:48)
[2020-08-22] MEDS: Dexamethasone 4 MG Tab PO SCH (08:48)
[2020-08-22] MEDS: Enoxaparin 40 MG/0.4 ML Syringe SUBCUT SCH ×2 (08:48→20:10)
[2020-08-22] MEDS: Polyvinyl Alcohol 1.4% Ophth Soln 15 ML Bottle EYEBOTH SCH ×2 (08:49→21:43)
[2020-08-22] MEDS: Pantoprazole 40 MG in Sodium Chloride 0.9% 10 ML IV SCH (08:50)
[2020-08-22] MEDS: FENOFIBRATE NANOCRYSTALLIZED 145 MG PO SCH (09:32)
[2020-08-22] MEDS: Carvedilol 25 MG Tab PO SCH ×2 (09:50→20:09)
[2020-08-22] MEDS ORDERED: Albuterol/Ipratropium 3.0-0.5 MG/3 ML Neb Soln ONE (10:21)
[2020-08-22] MEDS: Albuterol/Ipratropium 3.0-0.5 MG/3 ML Neb Soln NEB SCH ×4 (10:34→21:18)
--- NOTE | 2020-08-22 14:25 | PCM.PN ---
- General Info Date of Service: 08/22/20 Admission Dx/Problem (Free Text): Admission Diagnosis/Problem Admission Diagnosis/Problem Respiratory failure with hypoxia Subjective Update: seen at bedside, in BiPAP not tolerating High flow yet. Was frustrated with being on bipap, upset stated "you guys dont know what the hell you are doing, nurse tells me one thing, you are telling me another thing, get your stories straight". States "he fought for this [place] and [place] [facility] [place] to move [place]". states "we need to get rid of the current president". Very upset about some miscommunication about plasma between nursing and him earlier. Is concerned if the doctor who will take over tomorrow is "[place]ian and if he can speak proper Welsh", states "he has lived with COPD all his life, he doesn't want home oxygen cylinders as he doesn't want to deal with insurance hassle, only wants oxygen concentrator" I tried to pacify him but he was visibly very upset and worked up. - Review of Systems General: Reports: Weakness, Fatigue, Malaise. Denies: Fever, Chills, Night Sweats HEENT: Denies: Dysphasia, Ear Pain, Eye Pain Pulmonary: Reports: Shortness of Breath, Cough. Denies: Pleuritic Chest Pain, Sputum, Hemoptysis Cardiovascular: Denies: Chest Pain, Palpitations, Dyspnea on Exertion, Orthopnea Gastrointestinal: Denies: Abdominal Pain, Constipation, Decreased Appetite, Diarrhea Genitourinary: Denies: Dysuria, Frequency, Burning, Pain Musculoskeletal: Denies: Neck Pain, Shoulder Pain, Arm Pain Skin: Denies: Cyanosis, Jaundice, Mottled - Patient Data Vitals - Most Recent: Last Vital Signs Temp 36.7 C 08/22/20 09:00 Pulse 75 08/21/20 20:00 Resp 19 08/22/20 09:00 BP 149/101 H 08/22/20 09:00 Pulse Ox 95 08/22/20 13:00 Weight - Most Recent: 120.565 kg I&O - Last 24 Hours: Intake & Output 08/21/20 08/22/20 08/22/20 22:59 06:59 14:59 Intake Total 260 1350 Output Total 650 2000 Balance -390 -650 Lab Results Last 24 Hours: Laboratory Results - last 24 hr 08/22/20 08/22/20 08/22/20 Range/Units 05:20 05:20 09:57 WBC 10.54 (4.0-11.0) K/uL RBC 5.15 (4.50-5.90) M/uL Hgb 14.8 (13.0-17.0) g/dL Hct 44.6 (38.0-50.0) % MCV 86.6 (80.0-98.0) fL MCH 28.7 (27.0-32.0) pg MCHC 33.2 (31.0-37.0) g/dL RDW Std Deviation 45.0 (28.0-62.0) fl RDW Coeff of Bailee 14 (11.0-15.0) % Plt Count 220 (150-400) K/uL MPV 10.60 (7.40-12.00) fL Neut % (Auto) 83.5 H (48.0-80.0) % Lymph % (Auto) 6.3 L (16.0-40.0) % [place] % (Auto) 10.1 (0.0-15.0) % Eos % (Auto) 0.0 (0.0-7.0) % Baso % (Auto) 0.1 (0.0-1.5) % Neut # (Auto) 8.8 H (1.4-5.7) K/uL Lymph # (Auto) 0.7 (0.6-2.4) K/uL [place] # (Auto) 1.1 H (0.0-0.8) K/uL Eos # (Auto) 0.0 (0.0-0.7) K/uL Baso # (Auto) 0.0 (0.0-0.1) K/uL Nucleated RBC % 0.0 /100WBC Nucleated RBCs # 0 K/uL INR 1.20 APTT 27.7 (18.6-31.3) SEC Sodium 139 (136-148) mmol/L Potassium 4.0 (3.5-5.1) mmol/L Chloride 102 (98-107) mmol/L Carbon Dioxide 27.4 (21.0-32.0) mmol/L BUN 28 H (7.0-18.0) mg/dL Creatinine 1.1 (0.8-1.3) mg/dL Est Cr Clr Drug Dosing 66.63 mL/min Estimated GFR (MDRD) > 60.0 ml/min Glucose 153 H (74-106) mg/dL Calcium 8.7 (8.5-10.1) mg/dL Phosphorus 3.5 (2.6-4.7) mg/dL Magnesium 2.0 (1.8-2.4) mg/dL Total Bilirubin 0.4 (0.2-1.0) mg/dL AST 14 L (15-37) IU/L ALT 20 (14-63) IU/L Alkaline Phosphatase 43 L (46-116) U/L Total Protein 6.5 (6.4-8.2) g/dL Albumin 2.6 L (3.4-5.0) g/dL Globulin 3.9 (2.6-4.0) g/dL Albumin/Globulin Ratio 0.7 L (0.9-1.6) Blood Type Antibody Screen 08/22/20 Range/Units 09:57 WBC (4.0-11.0) K/uL RBC (4.50-5.90) M/uL Hgb (13.0-17.0) g/dL Hct (38.0-50.0) % MCV (80.0-98.0) fL MCH (27.0-32.0) pg MCHC (31.0-37.0) g/dL RDW Std Deviation (28.0-62.0) fl RDW Coeff of Bailee (11.0-15.0) % Plt Count (150-400) K/uL MPV (7.40-12.00) fL Neut % (Auto) (48.0-80.0) % Lymph % (Auto) (16.0-40.0) % [place] % (Auto) (0.0-15.0) % Eos % (Auto) (0.0-7.0) % Baso % (Auto) (0.0-1.5) % Neut # (Auto) (1.4-5.7) K/uL Lymph # (Auto) (0.6-2.4) K/uL [place] # (Auto) (0.0-0.8) K/uL Eos # (Auto) (0.0-0.7) K/uL Baso # (Auto) (0.0-0.1) K/uL Nucleated RBC % /100WBC Nucleated RBCs # K/uL INR APTT (18.6-31.3) SEC Sodium (136-148) mmol/L Potassium (3.5-5.1) mmol/L Chloride (98-107) mmol/L Carbon Dioxide (21.0-32.0) mmol/L BUN (7.0-18.0) mg/dL Creatinine (0.8-1.3) mg/dL Est Cr Clr Drug Dosing mL/min Estimated GFR (MDRD) ml/min Glucose (74-106) mg/dL Calcium (8.5-10.1) mg/dL Phosphorus (2.6-4.7) mg/dL Magnesium (1.8-2.4) mg/dL Total Bilirubin (0.2-1.0) mg/dL AST (15-37) IU/L ALT (14-63) IU/L Alkaline Phosphatase (46-116) U/L Total Protein (6.4-8.2) g/dL Albumin (3.4-5.0) g/dL Globulin (2.6-4.0) g/dL Albumin/Globulin Ratio (0.9-1.6) Blood Type A POSITIVE Antibody Screen NEGATIVE Med Orders - Current: Current Medications Acetaminophen (Tylenol) 650 mg PO Q4H PRN PRN Reason: Pain (Mild 1-3)/fever Last Admin: 08/21/20 20:26 Dose: 650 mg Documented by: Albuterol/Ipratropium (Combivent Respimat) 0 gm INH Q4H PRN PRN Reason: Dyspnea Albuterol/Ipratropium (Duoneb 3.0-0.5 Mg/3 Ml) 3 ml NEB Q4HRRT [facility] Last Admin: 08/22/20 13:27 Dose: 3 ml Documented by: Amlodipine Besylate (Norvasc) 10 mg PO DAILY [facility] Last Admin: 08/22/20 08:48 Dose: 10 mg Documented by: Artificial Tears (Liquitears 1.4% Ophth Soln) 0 ml EYEBOTH BID [facility] Last Admin: 08/22/20 08:49 Dose: 2 drop Documented by: Aspirin (Halfprin) 81 mg PO DAILY [facility] Last Admin: 08/22/20 08:47 Dose: 81 mg Documented by: Carvedilol (Coreg) 12.5 mg PO BID [facility] Last Admin: 08/22/20 09:50 Dose: Not Given Documented by: Dexamethasone (Dexamethasone) 6 mg PO DAILY [facility] Last Admin: 08/22/20 08:48 Dose: 6 mg Documented by: Enoxaparin Sodium (Lovenox) 40 mg SUBCUT BID [facility] Last Admin: 08/22/20 08:48 Dose: 40 mg Documented by: Remdesivir 100 mg/ Sodium (Chloride) 100 mls @ 100 mls/hr IV Q24H [facility] Stop: 08/24/20 22:59 Last Admin: 08/21/20 21:19 Dose: 100 mls/hr Documented by: Levofloxacin/Dextrose 750 mg/ (Premix) 150 mls @ 100 mls/hr IV Q24H [facility] Last Admin: 08/21/20 22:30 Dose: 100 mls/hr Documented by: Pantoprazole Sodium 40 mg/ (Sodium Chloride) 10 mls @ 300 mls/hr IV DAILY [facility] Last Admin: 08/22/20 08:50 Dose: 300 mls/hr Documented by: Budesonide/Formoterol 160-4.5 Mcg/Puff 6 Gm Inhaler 0 each INH BID [facility] Last Admin: 08/22/20 08:45 Dose: 2 each Documented by: Sodium Chloride (Saline Flush) 10 ml FLUSH ASDIRECTED PRN PRN Reason: Keep Vein Open Sodium Chloride (Saline Flush) 2.5 ml FLUSH ASDIRECTED PRN PRN Reason: Keep Vein Open Discontinued Medications Acetaminophen (Tylenol Extra Strength) 500 mg PO BID [facility] Albuterol/Ipratropium (Duoneb 3.0-0.5 Mg/3 Ml) Confirm Administered Dose 3 ml .ROUTE .STK-MED ONE Stop: 08/22/20 10:22 Last Admin: 08/22/20 10:34 Dose: Not Given Documented by: Dexamethasone (Dexamethasone) 10 mg PO DAILY [facility] Last Admin: 08/21/20 08:44 Dose: 10 mg Documented by: Furosemide (Lasix) 20 mg IVPUSH ONETIME ONE Stop: 08/21/20 20:31 Last Admin: 08/21/20 21:13 Dose: 20 mg Documented by: Remdesivir 200 mg/ Sodium (Chloride) 250 mls @ 250 mls/hr IV ONETIME ONE Stop: 08/20/20 21:40 Last Admin: 08/20/20 23:33 Dose: 250 mls/hr Documented by: Influenza Virus Vaccine (Fluzone High-Dose Quad ) 240 mcg IM .ONCE ONE Stop: 08/21/20 09:01 Fenofibrate Nanocrystallized 145mg 1 each PO DAILY [facility] Last Admin: 08/22/20 09:32 Dose: Not Given Documented by: - Exam Quality Assessment: Supplemental Oxygen General: Alert, Oriented Lungs: Normal Respiratory Effort, Rales, Rhonchi, Wheezing Cardiovascular: Regular Rate, Regular Rhythm GI/Abdominal Exam: Normal Bowel Sounds, Soft, Non-Tender, No Organomegaly Back Exam: Normal Inspection, Full Range of Motion Extremities: Normal Inspection, Normal Range of Motion Sepsis Event Note - Evaluation Sepsis Screening Result: No Definite Risk - Focused Exam Vital Signs: Vital Signs Temp Resp BP BP Pulse Ox 08/22/20 13:00 95 08/22/20 12:00 90 L 08/22/20 11:00 94 L 08/22/20 10:00 93 L 08/22/20 09:00 36.7 C 19 149/101 H 88 L 08/22/20 08:48 149/101 H 08/22/20 08:00 20 93 L 08/22/20 04:00 36.4 C 20 130/88 92 L - Problem List & Annotations (1) COVID-19 SNOMED Code(s): 481770301 Code(s): U07.1 - COVID-19 Status: Acute Current Visit: Yes (2) Hypoxia SNOMED Code(s): 256104249 Code(s): R09.02 - HYPOXEMIA Status: Acute Current Visit: Yes (3) H/O acute myocardial infarction SNOMED Code(s): 570398208 Code(s): I25.2 - OLD MYOCARDIAL INFARCTION Status: Chronic Priority: Low Current Visit: No (4) HTN (hypertension) SNOMED Code(s): 03248877 Code(s): I10 - ESSENTIAL (PRIMARY) HYPERTENSION Status: Chronic Priority: Low Current Visit: No Qualifiers: Hypertension type: essential hypertension Qualified Code(s): I10 - Essential (primary) hypertension (5) Hypercholesteremia SNOMED Code(s): 23130891 Code(s): E78.0 - PURE HYPERCHOLESTEROLEMIA * DO NOT USE * Status: Chronic Priority: Low Current Visit: No (6) Rheumatoid arthritis SNOMED Code(s): 44044087 Code(s): M06.9 - RHEUMATOID ARTHRITIS, UNSPECIFIED Status: Chronic Priority: Low Current Visit: No Qualifiers: Rheumatoid arthritis location: unspecified site Rheumatoid factor presence: unspecified presence Qualified Code(s): M06.9 - Rheumatoid arthritis, unspecified (7) Sleep apnea SNOMED Code(s): 43361017 Code(s): G47.30 - SLEEP APNEA, UNSPECIFIED Status: Chronic Priority: Low Current Visit: No Qualifiers: Sleep apnea type: unspecified type Qualified Code(s): G47.30 - Sleep apnea, unspecified - Problem List Review Problem List Initiated/Reviewed/Updated: Yes - My Orders Last 24 Hours: My Active Orders 08/21/20 22:00 Remdesivir (Eua) [Remdesivir (EUA)] 100 mg Sodium Chloride 0.9% [Normal Saline] 100 ml IV Q24H 08/22/20 10:18 RT Aerosol Therapy [RC] ASDIRECTED Albuterol/Ipratropium [DuoNeb 3.0-0.5 MG/3 ML] 3 ml NEB Q4HRRT 08/22/20 14:10 Transfer Patient (Change bed) [ADT] Routine - Plan Plan:: 70 y/o M admitted for covid PNA, hypoxic respiratory failure h/o COPD, sleep apnea, not on home O2 although was recommended in the past cont BiPAP, wean off as tolerated cont dexamethasone, Remdesivir and BID lovenox. IV Levaquin, leucocytosis resolved Combivent scheduled ordered convalescent plasma, patient agreeable
[2020-08-22] MEDS ORDERED: Omeprazole 20 MG Cap.CR PO SCH (20:15)
--- NOTE | 2020-08-22 20:24 | CR ---
Indication: Worsening hypoxia. Technique: AP portable views of the chest. Comparison: August 20, 2020. Findings: Heart is enlarged. Diffuse increased interstitial opacities are identified bilaterally. Trace bilateral pleural effusions are identified, greater on the left than the right. Impression: Essentially stable chest x-ray Dictated by Felisa Gilliland MD @ Aug 22 2020 8:22PM Signed by Dr. Felisa Gilliland @ Aug 22 2020 8:23PM
[2020-08-22] MEDS ORDERED: Omeprazole 20 MG Cap.CR PO ONE (20:31)
[2020-08-22] MEDS: REMDESIVIR (EUA) 100 MG in Sodium Chloride 0.9% 100 ML IV SCH (21:49)
--- NOTE | 2020-08-22 22:08 | PN ---
JENNIFER Physician - Brief Progress [id number]/07/2020 22:07[facility] [place], [place] - [facility] - [facility] LAGUERREHANCARLOS, COVID+Date of Service 08/22/2020 22:07H PI/Events of Note Brief HPI:Is a 70-year-old male suffering from severe cough with pneumonia. Has be en shifted to the ICU due to continuous BiPAP requirement. Has already received convalescent plasma, currently on Tamiflu 300 mg daily, dexamethasone 6 mg daily and Lovenox 40 mg twice daily. We will monitor the patient for now no need for any acute changes.Camera assessment:This is a 70-year-old [facility] [place] male, does not appear to be in any acute distress or pain. Current heart rate is 80/min, norm al sinus rhythm, blood pressure 140/80 mmHg, respiratory rate of 25, saturation 92% on BiPAP.Labs:Whi te count 10.5, hemoglobin 14.8, platelets 220, neutrophil percentage 83.5, lymphocyte percentage 6.3I NR 1.20, APTT 27.7Sodium 139, potassium 4.0, chloride 102, bicarb 27, BUN 28, creatinine 1.1, glucose 153, calcium 8.7, phosphorus 3.5, magnesium 2.0LFTs essentially in normal range, low albumin of 2.6 notedChest x-ray shows bilateral interstitial and airspace disease noted. Bilateral lower lobe atele ctasis also noted.Assessment and plan:COVID-19 pneumonia:Severe pneumonia, patient currently on BiPAP 12/6 with 60% FiO2, saturation is currently 92%. We will continue current settings. Patient seems calm not in any respiratory distress. Patient is already getting rhabdo severe and steroids, plan to get convalescent plasma. Continue to follow patient for now getting appropriate care currently on L ovenox 40 mg twice daily we will continue same we will monitor the patient in ICU for now.No indicati on for DVT prophylaxis as already getting Lovenox 40 mg twice dailyInterventions Major-Hypoxemia - ev aluation and management, Infection - evaluation and management
[2020-08-22] MEDS: Levofloxacin/Dextrose 5%-Water 750 MG in Premix Bag 1 BAG IV SCH (22:57)
[2020-08-23] MEDS: Albuterol/Ipratropium 3.0-0.5 MG/3 ML Neb Soln NEB SCH ×6 (02:18→21:03)
[2020-08-23 06:25] LABS: BLOOD UREA NITROGEN,BUN 29 mg/dL (7.0-18.0); CARBON DIOXIDE,CO2 25.2 mmol/L (21.0-32.0); CHLORIDE,CL 103 mmol/L (98-107); GLUCOSE RANDOM 116 mg/dL (74-106); POTASSIUM,K 3.9 mmol/L (3.5-5.1); SODIUM,NA 139 mmol/L (136-148)
--- NOTE | 2020-08-23 08:35 | PN ---
THC Physician - Brief Progress [id number]/08/2020 08:28[facility] Paul [place], [place] - [place] (DANDRE) - LAVELLE CARLOS DAY, COVID+Date of Service 08/23/2020 08:28H PI/Events of Note eICU progress [id number] male currently admitted to the ICU for acute hypoxic respiratory failure secondary to COVID-19. Patient was admitted later in the evening yesterday on Bi PAP for progressively worsening hypoxia and has remained on BiPAP overnight. He currently remains on BiPAP 08/20 with tidal volumes in the 700s.Patient seen on camera, eyes closed and appears to be comf ortably sleeping at this time.Vital signs reviewed. HR 67, BP 119/79, RR 22, SPO2 91%Labs/EMR review edAcute hypoxic respiratory failure-Secondary to COVID-19 infection. -PPE and isolation per instituti on policy-Continue to wean Bipap, likely can be transitioned to HHFNC this morning once awake. -Agree with empiric antibiotic coverage for superimposed bacterial infection-Continue with Decadron as well as Remdesevir to complete course. Agree with convalescent plasma.-Recommend self proning as tolerate d-Recommend keeping patient euvolemic as much as possible.-Agree with scheduled inhalers but if unabl e to provide, can place on scheduled duo-nebs while on Bipap. -Continue with DVT and GI prophylaxis a s indicated. Thank you for allowing us to participate in the care of your patientInterventions Major- Hypoxemia - evaluation and management, Infection - evaluation and management, Respiratory failure - e valuation and management
[2020-08-23] MEDS: Aspirin 81 MG Tab.EC PO SCH (08:37)
[2020-08-23] MEDS: Carvedilol 25 MG Tab PO SCH ×2 (08:37→20:44)
[2020-08-23] MEDS: Dexamethasone 4 MG Tab PO SCH (08:37)
[2020-08-23] MEDS: amLODIPine 5 MG Tab PO SCH (08:38)
[2020-08-23] MEDS: Enoxaparin 40 MG/0.4 ML Syringe SUBCUT SCH ×2 (08:38→20:44)
[2020-08-23] MEDS: Polyvinyl Alcohol 1.4% Ophth Soln 15 ML Bottle EYEBOTH SCH ×2 (08:38→20:46)
[2020-08-23] MEDS: Budesonide/Formoterol 160-4.5 MCG/Puff 6 GM Inhaler INH SCH ×2 (08:39→20:48)
--- NOTE | 2020-08-23 14:30 | PCM.PN ---
- General Info Date of Service: 08/23/20 - Review of Systems Systems Review Comment:: reports shortness of breath, fatigue - Patient Data Vitals - Most Recent: Last Vital Signs Temp 36.9 C 08/23/20 08:00 Pulse 69 08/23/20 12:00 Resp 26 H 08/23/20 12:00 BP 120/78 08/23/20 12:00 Pulse Ox 92 L 08/23/20 12:00 Weight - Most Recent: 120.111 kg I&O - Last 24 Hours: Intake & Output 08/22/20 08/23/20 08/23/20 22:59 06:59 14:59 Intake Total 620 1000 Output Total 780 425 Balance -160 575 Lab Results Last 24 Hours: Laboratory Results - last 24 hr 08/23/20 08/23/20 Range/Units 04:50 06:30 WBC 9.36 (4.0-11.0) K/uL RBC 4.70 (4.50-5.90) M/uL Hgb 13.5 (13.0-17.0) g/dL Hct 40.7 (38.0-50.0) % MCV 86.6 (80.0-98.0) fL MCH 28.7 (27.0-32.0) pg MCHC 33.2 (31.0-37.0) g/dL RDW Std Deviation 45.2 (28.0-62.0) fl RDW Coeff of Bailee 14 (11.0-15.0) % Plt Count 223 (150-400) K/uL MPV 9.80 (7.40-12.00) fL Neut % (Auto) 83.2 H (48.0-80.0) % Lymph % (Auto) 8.3 L (16.0-40.0) % [place] % (Auto) 8.3 (0.0-15.0) % Eos % (Auto) 0.1 (0.0-7.0) % Baso % (Auto) 0.1 (0.0-1.5) % Neut # (Auto) 7.8 H (1.4-5.7) K/uL Lymph # (Auto) 0.8 (0.6-2.4) K/uL [place] # (Auto) 0.8 (0.0-0.8) K/uL Eos # (Auto) 0.0 (0.0-0.7) K/uL Baso # (Auto) 0.0 (0.0-0.1) K/uL Nucleated RBC % 0.0 /100WBC Nucleated RBCs # 0 K/uL Sodium 139 (136-148) mmol/L Potassium 3.9 (3.5-5.1) mmol/L Chloride 103 (98-107) mmol/L Carbon Dioxide 25.2 (21.0-32.0) mmol/L BUN 29 H (7.0-18.0) mg/dL Creatinine 1.0 (0.8-1.3) mg/dL Est Cr Clr Drug Dosing 73.29 mL/min Estimated GFR (MDRD) > 60.0 ml/min Glucose 116 H (74-106) mg/dL Calcium 8.6 (8.5-10.1) mg/dL Phosphorus 3.2 (2.6-4.7) mg/dL Magnesium 2.0 (1.8-2.4) mg/dL Total Bilirubin 0.5 (0.2-1.0) mg/dL AST 16 (15-37) IU/L ALT 21 (14-63) IU/L Alkaline Phosphatase 44 L (46-116) U/L Total Protein 6.2 L (6.4-8.2) g/dL Albumin 2.5 L (3.4-5.0) g/dL Globulin 3.7 (2.6-4.0) g/dL Albumin/Globulin Ratio 0.7 L (0.9-1.6) Med Orders - Current: Current Medications Acetaminophen (Tylenol) 650 mg PO Q4H PRN PRN Reason: Pain (Mild 1-3)/fever Last Admin: 08/21/20 20:26 Dose: 650 mg Documented by: Albuterol/Ipratropium (Combivent Respimat) 0 gm INH Q4H PRN PRN Reason: Dyspnea Albuterol/Ipratropium (Duoneb 3.0-0.5 Mg/3 Ml) 3 ml NEB Q4HRRT [facility] Last Admin: 08/23/20 10:04 Dose: 3 ml Documented by: Amlodipine Besylate (Norvasc) 10 mg PO DAILY [facility] Last Admin: 08/23/20 08:38 Dose: 10 mg Documented by: Artificial Tears (Liquitears 1.4% Ophth Soln) 0 ml EYEBOTH BID [facility] Last Admin: 08/23/20 08:38 Dose: 1 drop Documented by: Aspirin (Halfprin) 81 mg PO DAILY [facility] Last Admin: 08/23/20 08:37 Dose: 81 mg Documented by: Carvedilol (Coreg) 12.5 mg PO BID [facility] Last Admin: 08/23/20 08:37 Dose: 12.5 mg Documented by: Dexamethasone (Dexamethasone) 6 mg PO DAILY [facility] Last Admin: 08/23/20 08:37 Dose: 6 mg Documented by: Enoxaparin Sodium (Lovenox) 40 mg SUBCUT BID [facility] Last Admin: 08/23/20 08:38 Dose: 40 mg Documented by: Remdesivir 100 mg/ Sodium (Chloride) 100 mls @ 100 mls/hr IV Q24H [facility] Stop: 08/24/20 22:59 Last Admin: 08/22/20 21:49 Dose: 100 mls/hr Documented by: Levofloxacin/Dextrose 750 mg/ (Premix) 150 mls @ 100 mls/hr IV Q24H [facility] Last Admin: 08/22/20 22:57 Dose: 100 mls/hr Documented by: Pantoprazole Sodium 40 mg/ (Sodium Chloride) 10 mls @ 300 mls/hr IV DAILY [facility] Last Admin: 08/22/20 08:50 Dose: 300 mls/hr Documented by: Budesonide/Formoterol 160-4.5 Mcg/Puff 6 Gm Inhaler 0 each INH BID [facility] Last Admin: 08/23/20 08:39 Dose: 2 each Documented by: Sodium Chloride (Saline Flush) 10 ml FLUSH ASDIRECTED PRN PRN Reason: Keep Vein Open Sodium Chloride (Saline Flush) 2.5 ml FLUSH ASDIRECTED PRN PRN Reason: Keep Vein Open Discontinued Medications Acetaminophen (Tylenol Extra Strength) 500 mg PO BID [facility] Albuterol/Ipratropium (Duoneb 3.0-0.5 Mg/3 Ml) Confirm Administered Dose 3 ml .ROUTE .STK-MED ONE Stop: 08/22/20 10:22 Last Admin: 08/22/20 10:34 Dose: Not Given Documented by: Dexamethasone (Dexamethasone) 10 mg PO DAILY [facility] Last Admin: 08/21/20 08:44 Dose: 10 mg Documented by: Furosemide (Lasix) 20 mg IVPUSH ONETIME ONE Stop: 08/21/20 20:31 Last Admin: 08/21/20 21:13 Dose: 20 mg Documented by: Remdesivir 200 mg/ Sodium (Chloride) 250 mls @ 250 mls/hr IV ONETIME ONE Stop: 08/20/20 21:40 Last Admin: 08/20/20 23:33 Dose: 250 mls/hr Documented by: Influenza Virus Vaccine (Fluzone High-Dose Quad ) 240 mcg IM .ONCE ONE Stop: 08/21/20 09:01 Omeprazole (Omeprazole) 20 mg PO ONETIME ONE Stop: 08/22/20 20:32 Last Admin: 08/22/20 20:35 Dose: 20 mg Documented by: Fenofibrate Nanocrystallized 145mg 1 each PO DAILY [facility] Last Admin: 08/22/20 09:32 Dose: Not Given Documented by: - Exam General: Alert, Oriented Lungs: Normal Respiratory Effort, Decreased Breath Sounds Cardiovascular: Regular Rate, Regular Rhythm GI/Abdominal Exam: Normal Bowel Sounds, Soft, Non-Tender, No Distention Extremities: Non-Tender, No Pedal Edema Skin: Warm, Dry, Intact Neurological: No New Focal Deficit Sepsis Event Note - Evaluation Sepsis Screening Result: No Definite Risk - Focused Exam Vital Signs: Vital Signs Temp Pulse Pulse Resp BP BP Pulse Ox 08/23/20 12:00 69 26 H 120/78 92 L 08/23/20 11:00 72 23 H 113/71 92 L 08/23/20 10:00 21 H 101/68 91 L 08/23/20 09:00 19 89 L 08/23/20 08:38 119/79 08/23/20 08:37 85 119/79 08/23/20 08:00 36.9 C 19 119/79 92 L 08/23/20 07:00 18 126/90 90 L 08/23/20 06:00 19 130/88 89 L 08/23/20 05:00 14 137/80 91 L 08/23/20 04:15 08/23/20 04:00 23 H 143/78 H 90 L 08/23/20 03:00 16 133/77 92 L Pulse Ox 08/23/20 12:00 08/23/20 11:00 08/23/20 10:00 08/23/20 09:00 08/23/20 08:38 08/23/20 08:37 08/23/20 08:00 08/23/20 07:00 08/23/20 06:00 08/23/20 05:00 08/23/20 04:15 90 L 08/23/20 04:00 08/23/20 03:00 - Problem List Review Problem List Initiated/Reviewed/Updated: Yes - My Orders Last 24 Hours: My Active Orders 08/24/20 05:11 CBC WITH AUTO DIFF [HEME] AM COMPREHENSIVE METABOLIC PN,CMP [CHEM] AM - Plan Plan:: 70 y/o M with pmh of COPD, MEAGAN, admitted for covid PNA, hypoxic respiratory failure Acute hypoxic respiratory failure: continue BIPAP wean as tolerated COVID: continue dexamethasone, Remdesivir, Lovenox, Levaquin. Patient has consented to convalescent plasma after he was informed of the FDA EUA. He was instructed on the risks and benefits of plasma and informed of the alternative treatment plans for the treatment of COVID. He was given the fact sheet on COVID-19 Convalescent plasma
[2020-08-23] MEDS: Sodium Chloride 0.9% 2.5 ML Syringe FLUSH PRN ×2 (20:52→22:08)
[2020-08-23] MEDS: REMDESIVIR (EUA) 100 MG in Sodium Chloride 0.9% 100 ML IV SCH (22:04)
[2020-08-23] MEDS: Levofloxacin/Dextrose 5%-Water 750 MG in Premix Bag 1 BAG IV SCH (23:25)
[2020-08-24] MEDS: Albuterol/Ipratropium 3.0-0.5 MG/3 ML Neb Soln NEB SCH ×6 (02:32→21:50)
[2020-08-24] MEDS: Omeprazole 20 MG Cap.CR PO SCH (06:44)
[2020-08-24 06:55] LABS: BLOOD UREA NITROGEN,BUN 22 mg/dL (7.0-18.0); CARBON DIOXIDE,CO2 28.4 mmol/L (21.0-32.0); CHLORIDE,CL 102 mmol/L (98-107); GLUCOSE RANDOM 106 mg/dL (74-106); SODIUM,NA 137 mmol/L (136-148)
[2020-08-24] MEDS: Carvedilol 25 MG Tab PO SCH ×2 (08:27→21:49)
[2020-08-24] MEDS: Dexamethasone 4 MG Tab PO SCH (08:29)
[2020-08-24] MEDS: amLODIPine 5 MG Tab PO SCH (08:30)
[2020-08-24] MEDS: Enoxaparin 40 MG/0.4 ML Syringe SUBCUT SCH ×2 (08:31→21:50)
[2020-08-24] MEDS: Aspirin 81 MG Tab.EC PO SCH (08:31)
[2020-08-24] MEDS: Polyvinyl Alcohol 1.4% Ophth Soln 15 ML Bottle EYEBOTH SCH ×2 (08:33→20:01)
[2020-08-24] MEDS: Budesonide/Formoterol 160-4.5 MCG/Puff 6 GM Inhaler INH SCH ×2 (08:36→20:01)
--- NOTE | 2020-08-24 10:53 | PCM.PN ---
- General Info Date of Service: 08/24/20 - Review of Systems Systems Review Comment:: shortness of breath improving, no pain with deep inspiration - Patient Data Vitals - Most Recent: Last Vital Signs Temp 36.3 C 08/24/20 08:00 Pulse 97 08/24/20 08:27 Resp 13 08/24/20 10:00 BP 107/76 08/24/20 10:00 Pulse Ox 93 L 08/24/20 10:00 Weight - Most Recent: 118.115 kg I&O - Last 24 Hours: Intake & Output 08/23/20 08/24/20 08/24/20 22:59 06:59 14:59 Intake Total 820 850 Output Total 770 750 Balance 50 100 Lab Results Last 24 Hours: Laboratory Results - last 24 hr 08/24/20 08/24/20 Range/Units 06:06 06:06 WBC 10.45 (4.0-11.0) K/uL RBC 5.15 (4.50-5.90) M/uL Hgb 14.4 (13.0-17.0) g/dL Hct 44.7 (38.0-50.0) % MCV 86.8 (80.0-98.0) fL MCH 28.0 (27.0-32.0) pg MCHC 32.2 (31.0-37.0) g/dL RDW Std Deviation 45.3 (28.0-62.0) fl RDW Coeff of Bailee 14 (11.0-15.0) % Plt Count 231 (150-400) K/uL MPV 10.80 (7.40-12.00) fL Neut % (Auto) 84.4 H (48.0-80.0) % Lymph % (Auto) 7.8 L (16.0-40.0) % [place] % (Auto) 7.6 (0.0-15.0) % Eos % (Auto) 0.1 (0.0-7.0) % Baso % (Auto) 0.1 (0.0-1.5) % Neut # (Auto) 8.8 H (1.4-5.7) K/uL Lymph # (Auto) 0.8 (0.6-2.4) K/uL [place] # (Auto) 0.8 (0.0-0.8) K/uL Eos # (Auto) 0.0 (0.0-0.7) K/uL Baso # (Auto) 0.0 (0.0-0.1) K/uL Nucleated RBC % 0.0 /100WBC Nucleated RBCs # 0 K/uL Sodium 137 (136-148) mmol/L Potassium 4.0 (3.5-5.1) mmol/L Chloride 102 (98-107) mmol/L Carbon Dioxide 28.4 (21.0-32.0) mmol/L BUN 22 H (7.0-18.0) mg/dL Creatinine 0.9 (0.8-1.3) mg/dL Est Cr Clr Drug Dosing 81.43 mL/min Estimated GFR (MDRD) > 60.0 ml/min Glucose 106 (74-106) mg/dL Calcium 8.3 L (8.5-10.1) mg/dL Total Bilirubin 0.6 (0.2-1.0) mg/dL AST 13 L (15-37) IU/L ALT 20 (14-63) IU/L Alkaline Phosphatase 43 L (46-116) U/L Total Protein 6.1 L (6.4-8.2) g/dL Albumin 2.5 L (3.4-5.0) g/dL Globulin 3.6 (2.6-4.0) g/dL Albumin/Globulin Ratio 0.7 L (0.9-1.6) Med Orders - Current: Current Medications Acetaminophen (Tylenol) 650 mg PO Q4H PRN PRN Reason: Pain (Mild 1-3)/fever Last Admin: 08/21/20 20:26 Dose: 650 mg Documented by: Albuterol/Ipratropium (Combivent Respimat) 0 gm INH Q4H PRN PRN Reason: Dyspnea Albuterol/Ipratropium (Duoneb 3.0-0.5 Mg/3 Ml) 3 ml NEB Q4HRRT [facility] Last Admin: 08/24/20 10:35 Dose: 3 ml Documented by: Amlodipine Besylate (Norvasc) 10 mg PO DAILY [facility] Last Admin: 08/24/20 08:30 Dose: 10 mg Documented by: Artificial Tears (Liquitears 1.4% Ophth Soln) 0 ml EYEBOTH BID [facility] Last Admin: 10/09/20 08:33 Dose: 1 drop Documented by: Aspirin (Halfprin) 81 mg PO DAILY [facility] Last Admin: 08/24/20 08:31 Dose: 81 mg Documented by: Carvedilol (Coreg) 12.5 mg PO BID [facility] Last Admin: 08/24/20 08:27 Dose: 12.5 mg Documented by: Dexamethasone (Dexamethasone) 6 mg PO DAILY [facility] Last Admin: 08/24/20 08:29 Dose: 6 mg Documented by: Enoxaparin Sodium (Lovenox) 40 mg SUBCUT BID [facility] Last Admin: 08/24/20 08:31 Dose: 40 mg Documented by: Remdesivir 100 mg/ Sodium (Chloride) 100 mls @ 100 mls/hr IV Q24H [facility] Stop: 08/24/20 22:59 Last Admin: 08/23/20 22:04 Dose: 100 mls/hr Documented by: Levofloxacin/Dextrose 750 mg/ (Premix) 150 mls @ 100 mls/hr IV Q24H [facility] Last Admin: 08/23/20 23:25 Dose: 100 mls/hr Documented by: Omeprazole (Omeprazole) 20 mg PO ACBREAKFAST [facility] Last Admin: 08/24/20 06:44 Dose: 20 mg Documented by: Budesonide/Formoterol 160-4.5 Mcg/Puff 6 Gm Inhaler 0 each INH BID [facility] Last Admin: 08/24/20 08:36 Dose: 2 each Documented by: Sodium Chloride (Saline Flush) 10 ml FLUSH ASDIRECTED PRN PRN Reason: Keep Vein Open Sodium Chloride (Saline Flush) 2.5 ml FLUSH ASDIRECTED PRN PRN Reason: Keep Vein Open Last Admin: 08/23/20 22:08 Dose: 2.5 ml Documented by: Discontinued Medications Acetaminophen (Tylenol Extra Strength) 500 mg PO BID [facility] Albuterol/Ipratropium (Duoneb 3.0-0.5 Mg/3 Ml) Confirm Administered Dose 3 ml .ROUTE .STK-MED ONE Stop: 08/22/20 10:22 Last Admin: 08/22/20 10:34 Dose: Not Given Documented by: Dexamethasone (Dexamethasone) 10 mg PO DAILY [facility] Last Admin: 08/21/20 08:44 Dose: 10 mg Documented by: Furosemide (Lasix) 20 mg IVPUSH ONETIME ONE Stop: 08/21/20 20:31 Last Admin: 08/21/20 21:13 Dose: 20 mg Documented by: Remdesivir 200 mg/ Sodium (Chloride) 250 mls @ 250 mls/hr IV ONETIME ONE Stop: 08/20/20 21:40 Last Admin: 08/20/20 23:33 Dose: 250 mls/hr Documented by: Pantoprazole Sodium 40 mg/ (Sodium Chloride) 10 mls @ 300 mls/hr IV DAILY [facility] Last Admin: 08/22/20 08:50 Dose: 300 mls/hr Documented by: Influenza Virus Vaccine (Fluzone High-Dose Quad ) 240 mcg IM .ONCE ONE Stop: 08/21/20 09:01 Omeprazole (Omeprazole) 20 mg PO ONETIME ONE Stop: 08/22/20 20:32 Last Admin: 08/22/20 20:35 Dose: 20 mg Documented by: Fenofibrate Nanocrystallized 145mg 1 each PO DAILY [facility] Last Admin: 08/22/20 09:32 Dose: Not Given Documented by: - Exam General: Alert, Oriented Neck: Supple Lungs: Wheezing Cardiovascular: Regular Rate, Regular Rhythm GI/Abdominal Exam: Soft, Non-Tender, No Distention Extremities: Non-Tender, No Pedal Edema Skin: Warm, Dry, Intact Neurological: No New Focal Deficit Sepsis Event Note - Evaluation Sepsis Screening Result: No Definite Risk - Focused Exam Vital Signs: Vital Signs Temp Pulse Pulse Resp BP BP Pulse Ox 08/24/20 10:00 13 107/76 93 L 08/24/20 09:30 85 L 08/24/20 09:00 19 112/93 H 89 L 08/24/20 08:30 131/77 08/24/20 08:27 97 131/77 08/24/20 08:00 36.3 C 19 121/89 93 L 08/24/20 07:00 87 20 143/99 H 93 L 08/24/20 06:00 36.3 C 84 22 H 122/72 90 L 08/24/20 05:00 67 25 H 125/60 91 L 08/24/20 04:00 54 L 23 H 126/81 91 L 08/24/20 03:00 58 L 22 H 138/80 93 L 08/24/20 02:00 73 20 131/82 92 L 08/24/20 01:20 88 18 115/55 L 88 L 08/24/20 00:00 67 24 H 138/90 94 L 08/23/20 23:00 72 28 H 122/81 94 L Pulse Ox 08/24/20 10:00 08/24/20 09:30 08/24/20 09:00 08/24/20 08:30 08/24/20 08:27 08/24/20 08:00 08/24/20 07:00 08/24/20 06:00 90 L 08/24/20 05:00 08/24/20 04:00 08/24/20 03:00 08/24/20 02:00 08/24/20 01:20 08/24/20 00:00 08/23/20 23:00 - Problem List Review Problem List Initiated/Reviewed/Updated: Yes - My Orders Last 24 Hours: My Active Orders 08/24/20 07:30 Omeprazole 20 mg PO ACBREAKFAST 08/25/20 05:11 BASIC METABOLIC PANEL,BMP [CHEM] AM CBC WITH AUTO DIFF [HEME] AM 08/26/20 05:11 BASIC METABOLIC PANEL,BMP [CHEM] AM CBC WITH AUTO DIFF [HEME] AM 08/27/20 05:11 BASIC METABOLIC PANEL,BMP [CHEM] AM CBC WITH AUTO DIFF [HEME] AM - Plan Plan:: 70 y/o M with pmh of COPD, MEAGAN, admitted for covid PNA, hypoxic respiratory failure Acute hypoxic respiratory failure: continue BIPAP wean as tolerated and transition to HFNC COVID: continue dexamethasone, Remdesivir day 5, Lovenox, Levaquin. s/p convalescent plasma
--- NOTE | 2020-08-24 11:12 | PN ---
THC Physician - Brief Progress [id number]/09/2020 11:11[facility] [place] - [place] ([place]RE) - [place], COVID+Date of Service 08/24/2020 11:11H PI/Events of Note eICU Progress [id number] male currently admitted to the ICU for acute hypoxic respiratory failure secondary to COVID-19.Patient seen on camera, on BPAPVital signs reviewedLabs/EMR reviewedAcute hypoxic respiratory failure, secondary to COVID-19 infectionNo new recommendations at this timePlease do not hesitate to contact eICU service for any questions.Continue with DVT and GI pr ophylaxis as indicated.Thank you for allowing us to participate in the care of your patientInterventi ons Major-Respiratory failure - evaluation and management
[2020-08-24] MEDS: Sodium Chloride 0.9% 2.5 ML Syringe FLUSH PRN ×2 (20:01→21:54)
[2020-08-24] MEDS: REMDESIVIR (EUA) 100 MG in Sodium Chloride 0.9% 100 ML IV SCH (21:55)
[2020-08-24] MEDS: Levofloxacin/Dextrose 5%-Water 750 MG in Premix Bag 1 BAG IV SCH (23:18)
[2020-08-25] MEDS: Albuterol/Ipratropium 3.0-0.5 MG/3 ML Neb Soln NEB SCH ×6 (01:08→22:52)
[2020-08-25 06:30] LABS: BLOOD UREA NITROGEN,BUN 26 mg/dL (7.0-18.0); CARBON DIOXIDE,CO2 29.3 mmol/L (21.0-32.0); CHLORIDE,CL 101 mmol/L (98-107); GLUCOSE RANDOM 119 mg/dL (74-106); POTASSIUM,K 4.4 mmol/L (3.5-5.1); SODIUM,NA 137 mmol/L (136-148)
[2020-08-25] MEDS: Omeprazole 20 MG Cap.CR PO SCH (06:30)
[2020-08-25] MEDS: Aspirin 81 MG Tab.EC PO SCH (08:10)
[2020-08-25] MEDS: Dexamethasone 4 MG Tab PO SCH (08:10)
[2020-08-25] MEDS: Carvedilol 25 MG Tab PO SCH ×2 (08:11→20:49)
[2020-08-25] MEDS: Enoxaparin 40 MG/0.4 ML Syringe SUBCUT SCH ×2 (08:12→20:48)
[2020-08-25] MEDS: amLODIPine 5 MG Tab PO SCH (08:12)
[2020-08-25] MEDS: Polyvinyl Alcohol 1.4% Ophth Soln 15 ML Bottle EYEBOTH SCH ×2 (08:13→20:53)
[2020-08-25] MEDS: Budesonide/Formoterol 160-4.5 MCG/Puff 6 GM Inhaler INH SCH ×2 (09:27→22:54)
--- NOTE | 2020-08-25 11:16 | PN ---
THC Physician - Brief Progress [id number]/10/2020 11:15[facility] Paul [place], [place] - [place] (DANDRE) - [place], COVID+Date of Service 08/25/2020 11:15H PI/Events of Note eICU Progress [id number] male currently admitted to the ICU for acute hypoxic respiratory failure secondary to COVID-19.Patient seen on camera, sitting up on chair on NCVital sign s reviewedLabs/EMR reviewedAcute hypoxic respiratory failure, secondary to COVID-19 infectionNo new r ecommendations at this timePlease do not hesitate to contact eICU service for any questions.Continue with DVT and GI prophylaxis as indicated.Thank you for allowing us to participate in the care of your patientInterventions Major-Respiratory failure - evaluation and management
--- NOTE | 2020-08-25 16:08 | PCM.PN ---
- General Info Date of Service: 08/25/20 - Review of Systems Systems Review Comment:: feeling better, eager to get home - Patient Data Vitals - Most Recent: Last Vital Signs Temp 37.2 C 08/25/20 08:00 Pulse 79 08/25/20 08:11 Resp 14 08/25/20 10:00 BP 108/72 08/25/20 10:00 Pulse Ox 90 L 08/25/20 10:00 Weight - Most Recent: 117.979 kg I&O - Last 24 Hours: Intake & Output 08/25/20 08/25/20 08/25/20 06:59 14:59 22:59 Intake Total 840 Output Total 800 Balance 40 Lab Results Last 24 Hours: Laboratory Results - last 24 hr 08/25/20 08/25/20 Range/Units 05:25 05:25 WBC 9.76 (4.0-11.0) K/uL RBC 5.08 (4.50-5.90) M/uL Hgb 14.5 (13.0-17.0) g/dL Hct 44.3 (38.0-50.0) % MCV 87.2 (80.0-98.0) fL MCH 28.5 (27.0-32.0) pg MCHC 32.7 (31.0-37.0) g/dL RDW Std Deviation 45.5 (28.0-62.0) fl RDW Coeff of Bailee 14 (11.0-15.0) % Plt Count 246 (150-400) K/uL MPV 9.90 (7.40-12.00) fL Neut % (Auto) 82.1 H (48.0-80.0) % Lymph % (Auto) 8.3 L (16.0-40.0) % [place] % (Auto) 9.2 (0.0-15.0) % Eos % (Auto) 0.2 (0.0-7.0) % Baso % (Auto) 0.2 (0.0-1.5) % Neut # (Auto) 8.0 H (1.4-5.7) K/uL Lymph # (Auto) 0.8 (0.6-2.4) K/uL [place] # (Auto) 0.9 H (0.0-0.8) K/uL Eos # (Auto) 0.0 (0.0-0.7) K/uL Baso # (Auto) 0.0 (0.0-0.1) K/uL Nucleated RBC % 0.0 /100WBC Nucleated RBCs # 0 K/uL Sodium 137 (136-148) mmol/L Potassium 4.4 (3.5-5.1) mmol/L Chloride 101 (98-107) mmol/L Carbon Dioxide 29.3 (21.0-32.0) mmol/L BUN 26 H (7.0-18.0) mg/dL Creatinine 1.0 (0.8-1.3) mg/dL Est Cr Clr Drug Dosing 73.29 mL/min Estimated GFR (MDRD) > 60.0 ml/min Glucose 119 H (74-106) mg/dL Calcium 8.2 L (8.5-10.1) mg/dL Med Orders - Current: Current Medications Acetaminophen (Tylenol) 650 mg PO Q4H PRN PRN Reason: Pain (Mild 1-3)/fever Last Admin: 08/21/20 20:26 Dose: 650 mg Documented by: Albuterol/Ipratropium (Combivent Respimat) 0 gm INH Q4H PRN PRN Reason: Dyspnea Albuterol/Ipratropium (Duoneb 3.0-0.5 Mg/3 Ml) 3 ml NEB Q4HRRT [facility] Last Admin: 08/25/20 14:05 Dose: 3 ml Documented by: Amlodipine Besylate (Norvasc) 10 mg PO DAILY [facility] Last Admin: 08/25/20 08:12 Dose: 10 mg Documented by: Artificial Tears (Liquitears 1.4% Ophth Soln) 0 ml EYEBOTH BID [facility] Last Admin: 08/25/20 08:13 Dose: 1 drop Documented by: Aspirin (Halfprin) 81 mg PO DAILY [facility] Last Admin: 08/25/20 08:10 Dose: 81 mg Documented by: Carvedilol (Coreg) 12.5 mg PO BID [facility] Last Admin: 08/25/20 08:11 Dose: 12.5 mg Documented by: Dexamethasone (Dexamethasone) 6 mg PO DAILY [facility] Last Admin: 08/25/20 08:10 Dose: 6 mg Documented by: Enoxaparin Sodium (Lovenox) 40 mg SUBCUT BID [facility] Last Admin: 08/25/20 08:12 Dose: 40 mg Documented by: Levofloxacin/Dextrose 750 mg/ (Premix) 150 mls @ 100 mls/hr IV Q24H [facility] Last Admin: 08/24/20 23:18 Dose: 100 mls/hr Documented by: Omeprazole (Omeprazole) 20 mg PO ACBREAKFAST [facility] Last Admin: 08/25/20 06:30 Dose: 20 mg Documented by: Budesonide/Formoterol 160-4.5 Mcg/Puff 6 Gm Inhaler 0 each INH BID [facility] Last Admin: 08/25/20 09:27 Dose: 2 each Documented by: Sodium Chloride (Saline Flush) 10 ml FLUSH ASDIRECTED PRN PRN Reason: Keep Vein Open Sodium Chloride (Saline Flush) 2.5 ml FLUSH ASDIRECTED PRN PRN Reason: Keep Vein Open Last Admin: 08/24/20 21:54 Dose: 2.5 ml Documented by: Discontinued Medications Acetaminophen (Tylenol Extra Strength) 500 mg PO BID [facility] Albuterol/Ipratropium (Duoneb 3.0-0.5 Mg/3 Ml) Confirm Administered Dose 3 ml .ROUTE .STK-MED ONE Stop: 08/22/20 10:22 Last Admin: 08/22/20 10:34 Dose: Not Given Documented by: Dexamethasone (Dexamethasone) 10 mg PO DAILY [facility] Last Admin: 08/21/20 08:44 Dose: 10 mg Documented by: Furosemide (Lasix) 20 mg IVPUSH ONETIME ONE Stop: 08/21/20 20:31 Last Admin: 08/21/20 21:13 Dose: 20 mg Documented by: Remdesivir 200 mg/ Sodium (Chloride) 250 mls @ 250 mls/hr IV ONETIME ONE Stop: 08/20/20 21:40 Last Admin: 08/20/20 23:33 Dose: 250 mls/hr Documented by: Remdesivir 100 mg/ Sodium (Chloride) 100 mls @ 100 mls/hr IV Q24H [facility] Stop: 08/24/20 22:59 Last Admin: 08/24/20 21:55 Dose: 100 mls/hr Documented by: Pantoprazole Sodium 40 mg/ (Sodium Chloride) 10 mls @ 300 mls/hr IV DAILY [facility] Last Admin: 08/22/20 08:50 Dose: 300 mls/hr Documented by: Influenza Virus Vaccine (Fluzone High-Dose Quad ) 240 mcg IM .ONCE ONE Stop: 08/21/20 09:01 Omeprazole (Omeprazole) 20 mg PO ONETIME ONE Stop: 08/22/20 20:32 Last Admin: 08/22/20 20:35 Dose: 20 mg Documented by: Fenofibrate Nanocrystallized 145mg 1 each PO DAILY [facility] Last Admin: 08/22/20 09:32 Dose: Not Given Documented by: - Exam General: Alert, Oriented Neck: Supple Lungs: Clear to Auscultation, Normal Respiratory Effort Cardiovascular: Regular Rate, Regular Rhythm GI/Abdominal Exam: Soft, Non-Tender, No Distention Back Exam: Other Extremities: Slow Capillary Refill Skin: Warm, Dry, Intact Neurological: No New Focal Deficit Sepsis Event Note - Evaluation Sepsis Screening Result: No Definite Risk - Focused Exam Vital Signs: Vital Signs Temp Pulse Pulse Resp BP BP Pulse Ox 08/25/20 10:00 14 108/72 90 L 08/25/20 09:00 14 99/65 91 L 08/25/20 08:12 129/90 08/25/20 08:11 79 129/90 08/25/20 08:00 37.2 C 25 H 129/90 91 L 08/25/20 07:00 63 18 127/87 96 08/25/20 06:00 62 22 H 125/91 H 94 L 08/25/20 05:00 58 L 21 H 128/82 92 L Pulse Ox 08/25/20 10:00 08/25/20 09:00 88 L 08/25/20 08:12 08/25/20 08:11 08/25/20 08:00 08/25/20 07:00 08/25/20 06:00 08/25/20 05:00 - Problem List Review Problem List Initiated/Reviewed/Updated: Yes - My Orders Last 24 Hours: My Active Orders 08/25/20 15:55 Transfer Patient (Change bed) [ADT] Routine CPAP Noctural Home [RT BiPAP/CPAP] [RC] ASDIRECTED 08/26/20 05:11 BASIC METABOLIC PANEL,BMP [CHEM] AM CBC WITH AUTO DIFF [HEME] AM 08/27/20 05:11 BASIC METABOLIC PANEL,BMP [CHEM] AM CBC WITH AUTO DIFF [HEME] AM - Plan Plan:: 70 y/o M with pmh of COPD, [place], admitted for covid PNA, hypoxic respiratory failure Acute hypoxic respiratory failure: on 8 L HFNC, CPAP at night COVID: continue dexamethasone,Levaquin. s/p convalescent plasma and five days of remdesivir
[2020-08-25] MEDS: Levofloxacin/Dextrose 5%-Water 750 MG in Premix Bag 1 BAG IV SCH (22:58)
[2020-08-26] MEDS: Albuterol/Ipratropium 3.0-0.5 MG/3 ML Neb Soln NEB SCH ×3 (02:31→12:13)
[2020-08-26] MEDS: Omeprazole 20 MG Cap.CR PO SCH (06:38)
[2020-08-26 06:46] LABS: BLOOD UREA NITROGEN,BUN 29 mg/dL (7.0-18.0); CARBON DIOXIDE,CO2 28.4 mmol/L (21.0-32.0); CHLORIDE,CL 102 mmol/L (98-107); GLUCOSE RANDOM 114 mg/dL (74-106); POTASSIUM,K 4.3 mmol/L (3.5-5.1); SODIUM,NA 137 mmol/L (136-148)
[2020-08-26] MEDS: Dexamethasone 4 MG Tab PO SCH (08:37)
[2020-08-26] MEDS: Carvedilol 25 MG Tab PO SCH ×2 (08:37→21:21)
[2020-08-26] MEDS: Aspirin 81 MG Tab.EC PO SCH (08:37)
[2020-08-26] MEDS: amLODIPine 5 MG Tab PO SCH (08:37)
[2020-08-26] MEDS: Enoxaparin 40 MG/0.4 ML Syringe SUBCUT SCH ×2 (08:38→21:20)
[2020-08-26] MEDS: Polyvinyl Alcohol 1.4% Ophth Soln 15 ML Bottle EYEBOTH SCH ×2 (08:44→21:23)
[2020-08-26] MEDS: Budesonide/Formoterol 160-4.5 MCG/Puff 6 GM Inhaler INH SCH ×2 (08:44→21:27)
--- NOTE | 2020-08-26 12:07 | PCM.PN ---
- General Info Date of Service: 08/26/20 - Review of Systems Systems Review Comment:: shortness of breath has improved, no fevers - Patient Data Vitals - Most Recent: Last Vital Signs Temp 36.8 C 08/26/20 08:00 Pulse 72 08/26/20 08:37 Resp 20 08/26/20 08:00 BP 127/79 08/26/20 08:37 Pulse Ox 88 L 08/26/20 09:00 Weight - Most Recent: 119.748 kg I&O - Last 24 Hours: Intake & Output 08/25/20 08/26/20 08/26/20 22:59 06:59 14:59 Intake Total 1200 646 Output Total 750 Balance 1200 -104 Lab Results Last 24 Hours: Laboratory Results - last 24 hr 08/26/20 08/26/20 Range/Units 06:00 06:00 WBC 10.68 (4.0-11.0) K/uL RBC 5.04 (4.50-5.90) M/uL Hgb 14.2 (13.0-17.0) g/dL Hct 43.7 (38.0-50.0) % MCV 86.7 (80.0-98.0) fL MCH 28.2 (27.0-32.0) pg MCHC 32.5 (31.0-37.0) g/dL RDW Std Deviation 44.7 (28.0-62.0) fl RDW Coeff of Bailee 14 (11.0-15.0) % Plt Count 232 (150-400) K/uL MPV 10.40 (7.40-12.00) fL Neut % (Auto) 82.1 H (48.0-80.0) % Lymph % (Auto) 8.1 L (16.0-40.0) % [place] % (Auto) 9.6 (0.0-15.0) % Eos % (Auto) 0.1 (0.0-7.0) % Baso % (Auto) 0.1 (0.0-1.5) % Neut # (Auto) 8.8 H (1.4-5.7) K/uL Lymph # (Auto) 0.9 (0.6-2.4) K/uL [place] # (Auto) 1.0 H (0.0-0.8) K/uL Eos # (Auto) 0.0 (0.0-0.7) K/uL Baso # (Auto) 0.0 (0.0-0.1) K/uL Nucleated RBC % 0.0 /100WBC Nucleated RBCs # 0 K/uL Sodium 137 (136-148) mmol/L Potassium 4.3 (3.5-5.1) mmol/L Chloride 102 (98-107) mmol/L Carbon Dioxide 28.4 (21.0-32.0) mmol/L BUN 29 H (7.0-18.0) mg/dL Creatinine 1.1 (0.8-1.3) mg/dL Est Cr Clr Drug Dosing 66.63 mL/min Estimated GFR (MDRD) > 60.0 ml/min Glucose 114 H (74-106) mg/dL Calcium 8.3 L (8.5-10.1) mg/dL Med Orders - Current: Current Medications Acetaminophen (Tylenol) 650 mg PO Q4H PRN PRN Reason: Pain (Mild 1-3)/fever Last Admin: 08/21/20 20:26 Dose: 650 mg Documented by: Albuterol/Ipratropium (Combivent Respimat) 0 gm INH Q4H PRN PRN Reason: Dyspnea Last Admin: 08/26/20 11:53 Dose: 1 each Documented by: Albuterol/Ipratropium (Duoneb 3.0-0.5 Mg/3 Ml) 3 ml NEB Q4HRRT [facility] Last Admin: 08/26/20 06:38 Dose: 3 ml Documented by: Amlodipine Besylate (Norvasc) 10 mg PO DAILY [facility] Last Admin: 08/26/20 08:37 Dose: 10 mg Documented by: Artificial Tears (Liquitears 1.4% Ophth Soln) 0 ml EYEBOTH BID [facility] Last Admin: 08/26/20 08:44 Dose: 1 drop Documented by: Aspirin (Halfprin) 81 mg PO DAILY [facility] Last Admin: 08/26/20 08:37 Dose: 81 mg Documented by: Carvedilol (Coreg) 12.5 mg PO BID [facility] Last Admin: 08/26/20 08:37 Dose: 12.5 mg Documented by: Dexamethasone (Dexamethasone) 6 mg PO DAILY [facility] Last Admin: 08/26/20 08:37 Dose: 6 mg Documented by: Enoxaparin Sodium (Lovenox) 40 mg SUBCUT BID [facility] Last Admin: 08/26/20 08:38 Dose: 40 mg Documented by: Levofloxacin/Dextrose 750 mg/ (Premix) 150 mls @ 100 mls/hr IV Q24H [facility] Last Admin: 08/25/20 22:58 Dose: 100 mls/hr Documented by: Omeprazole (Omeprazole) 20 mg PO ACBREAKFAST [facility] Last Admin: 08/26/20 06:38 Dose: 20 mg Documented by: Budesonide/Formoterol 160-4.5 Mcg/Puff 6 Gm Inhaler 0 each INH BID [facility] Last Admin: 08/26/20 08:44 Dose: 2 each Documented by: Sodium Chloride (Saline Flush) 10 ml FLUSH ASDIRECTED PRN PRN Reason: Keep Vein Open Sodium Chloride (Saline Flush) 2.5 ml FLUSH ASDIRECTED PRN PRN Reason: Keep Vein Open Last Admin: 08/24/20 21:54 Dose: 2.5 ml Documented by: Discontinued Medications Acetaminophen (Tylenol Extra Strength) 500 mg PO BID [facility] Albuterol/Ipratropium (Duoneb 3.0-0.5 Mg/3 Ml) Confirm Administered Dose 3 ml .ROUTE .STK-MED ONE Stop: 08/22/20 10:22 Last Admin: 08/22/20 10:34 Dose: Not Given Documented by: Dexamethasone (Dexamethasone) 10 mg PO DAILY [facility] Last Admin: 08/21/20 08:44 Dose: 10 mg Documented by: Furosemide (Lasix) 20 mg IVPUSH ONETIME ONE Stop: 08/21/20 20:31 Last Admin: 08/21/20 21:13 Dose: 20 mg Documented by: Remdesivir 200 mg/ Sodium (Chloride) 250 mls @ 250 mls/hr IV ONETIME ONE Stop: 08/20/20 21:40 Last Admin: 08/20/20 23:33 Dose: 250 mls/hr Documented by: Remdesivir 100 mg/ Sodium (Chloride) 100 mls @ 100 mls/hr IV Q24H [facility] Stop: 08/24/20 22:59 Last Admin: 08/24/20 21:55 Dose: 100 mls/hr Documented by: Pantoprazole Sodium 40 mg/ (Sodium Chloride) 10 mls @ 300 mls/hr IV DAILY [facility] Last Admin: 08/22/20 08:50 Dose: 300 mls/hr Documented by: Influenza Virus Vaccine (Fluzone High-Dose Quad ) 240 mcg IM .ONCE ONE Stop: 08/21/20 09:01 Omeprazole (Omeprazole) 20 mg PO ONETIME ONE Stop: 08/22/20 20:32 Last Admin: 08/22/20 20:35 Dose: 20 mg Documented by: Fenofibrate Nanocrystallized 145mg 1 each PO DAILY [facility] Last Admin: 08/22/20 09:32 Dose: Not Given Documented by: - Exam General: Alert, Oriented Neck: Supple Lungs: Clear to Auscultation, Normal Respiratory Effort Cardiovascular: Regular Rate, Regular Rhythm GI/Abdominal Exam: Normal Bowel Sounds, Soft, Non-Tender, No Distention Extremities: Non-Tender, No Pedal Edema Skin: Warm, Dry, Intact Neurological: No New Focal Deficit Sepsis Event Note - Evaluation Sepsis Screening Result: No Definite Risk - Focused Exam Vital Signs: Vital Signs Temp Pulse Pulse Resp BP BP Pulse Ox 08/26/20 09:00 08/26/20 08:37 72 127/79 08/26/20 08:00 36.8 C 60 20 125/68 88 L 08/26/20 04:30 36.6 C 63 20 120/68 92 L 08/26/20 00:23 36.6 C 67 20 115/72 91 L Pulse Ox 08/26/20 09:00 88 L 08/26/20 08:37 08/26/20 08:00 08/26/20 04:30 08/26/20 00:23 - Problem List Review Problem List Initiated/Reviewed/Updated: Yes - My Orders Last 24 Hours: My Active Orders 08/25/20 15:55 Transfer Patient (Change bed) [ADT] Routine CPAP Noctural Home [RT BiPAP/CPAP] [RC] ASDIRECTED 08/27/20 05:11 BASIC METABOLIC PANEL,BMP [CHEM] AM CBC WITH AUTO DIFF [HEME] AM - Plan Plan:: 70 y/o M with pmh of COPD, MEAG[place], admitted for covid PNA, hypoxic respiratory failure Acute hypoxic respiratory failure: on 6 L HFNC, CPAP at night COVID: continue dexamethasone,Levaquin. s/p convalescent plasma and five days of remdesivir
[2020-08-26] MEDS: Albuterol/Ipratropium 4 GM Inhalation Spray INH PRN ×2 (17:32→21:24)
[2020-08-26] MEDS: Levofloxacin/Dextrose 5%-Water 750 MG in Premix Bag 1 BAG IV SCH (22:53)
[2020-08-27 06:22] LABS: BLOOD UREA NITROGEN,BUN 26 mg/dL (7.0-18.0); CARBON DIOXIDE,CO2 25.9 mmol/L (21.0-32.0); CHLORIDE,CL 103 mmol/L (98-107); GLUCOSE RANDOM 120 mg/dL (74-106); POTASSIUM,K 4.2 mmol/L (3.5-5.1); SODIUM,NA 137 mmol/L (136-148)
[2020-08-27] MEDS: Albuterol/Ipratropium 4 GM Inhalation Spray INH PRN (06:26)
[2020-08-27] MEDS: Omeprazole 20 MG Cap.CR PO SCH (06:30)
[2020-08-27] MEDS ORDERED: Carvedilol 12.5 MG Tab PO SCH (09:00)
[2020-08-27] MEDS: Enoxaparin 40 MG/0.4 ML Syringe SUBCUT SCH (09:29)
[2020-08-27] MEDS: Aspirin 81 MG Tab.EC PO SCH (09:31)
[2020-08-27] MEDS: Dexamethasone 4 MG Tab PO SCH (09:32)
[2020-08-27] MEDS: amLODIPine 5 MG Tab PO SCH (09:32)
[2020-08-27] MEDS: Polyvinyl Alcohol 1.4% Ophth Soln 15 ML Bottle EYEBOTH SCH (09:35)
[2020-08-27] MEDS: Budesonide/Formoterol 160-4.5 MCG/Puff 6 GM Inhaler INH SCH (09:35)
[2020-08-27] MEDS ORDERED: FLU Vacc QV2020-21(65YR UP)/PF 240 MCG/0.7 ML Syringe IM ONE (11:56)
--- NOTE | 2020-08-27 12:27 | PCM.DCSUM1 ---
Discharge Summary - Discharge Data Discharge Date: 08/27/20 Discharge Disposition: Home, Self-Care 01 Condition: Stable - Referral to Home Health Primary Care Physician: PCP None - Patient Summary/Data Hospital Course: 70 year old male, with PMH of [place], HTN, hypercholesteremia, COPD who was admitted for COVID pneumonia. He presented with one week of shortness of breath and fatigue Hwa diagnosed COVID last week and had been taking doxycyline and dexamethasone. IN the ED he was noted to be satting 78% on RA. And requring 5 Liters NC supplemental oxygen. CXR consistent with atypical PNA. Troponin neg, EKG unremarkable to acute ischemia. He was admitted for covid pneumonia and treated with Remdesivir, dexamethasone, convalescent plasma, and Levaquin. Patient was placed on BIPAP intermitently at night due to history of MEAGAN. He did have slow improvement in his symptoms and was weened off HFNC and BIPAP. Today he is requesting discharge home. He was discharged home o 4L NC of supplemental oxygen with a dexamethasone taper to follow up with Dr. Carrillo. - Discharge Plan Prescriptions/Med Rec: Fluticasone Propion/Salmeterol [Advair 250-50 Diskus] 1 each IH BID #1 diskus dexAMETHasone [Dexamethasone] 2 mg PO DAILY #14 tab Home Medications: Home Meds Acetaminophen [Tylenol Extra Strength] 1 tab PO BID 07/07/15 [History] Aspirin [Halfprin] 1 tab PO DAILY 07/07/15 [History] Fenofibrate Nanocrystallized [Fenofibrate] 145 mg PO DAILY 07/07/15 [History] Olmesartan Medoxomil [Benicar] 40 mg PO DAILY 07/07/15 [History] Omeprazole 20 mg PO Q2D 07/07/15 [History] Sildenafil Citrate [Viagra] 1 tab PO ASDIRECTED 07/07/15 [History] Simvastatin [Zocor] 20 mg PO BEDTIME 07/07/15 [History] amLODIPine Besylate [Amlodipine Besylate] 10 mg PO DAILY 07/07/15 [History] carvediloL [Carvedilol] 12.5 mg PO BID 07/07/15 [History] Albuterol Sulfate [Albuterol Sulfate Hfa] 2 puff IH Q4HR PRN 08/20/20 [History] Budesonide/Formoterol Fumarate [Symbicort 160-4.5 Mcg Inhaler] 2 puff INH BID 08/20/20 [History] Doxycycline [Vibramycin] 1 tab PO BID 08/20/20 [History] cycloSPORINE [Restasis Multidose] 1 drop EYEBOTH BID 08/20/20 [History] Fluticasone Propion/Salmeterol [Advair 250-50 Diskus] 1 each IH BID #1 diskus 08/27/20 [Rx] dexAMETHasone [Dexamethasone] 2 mg PO DAILY #14 tab 08/27/20 [Rx] Oxygen Therapy Mode: Nasal Cannula Oxygen Flow Rate (L/min): 4 Patient Handouts: COVID-19 Frequently Asked Questions, COVID-19, COVID-19: How to Protect Yourself and Others - [facility] Referrals: Rich Eduardo MD [Ordering Only Provider] - - Discharge Summary/Plan Comment DC Time >30 min.: No - Patient Data Vitals - Most Recent: Last Vital Signs Temp 36.5 C 08/27/20 09:28 Pulse 84 08/27/20 09:31 Resp 18 08/27/20 09:28 BP 138/80 08/27/20 09:32 Pulse Ox 91 L 08/27/20 09:28 Weight - Most Recent: 119.884 kg I&O - Last 24 hours: Intake & Output 08/26/20 08/27/20 08/27/20 22:59 06:59 14:59 Intake Total 860 400 Output Total 750 575 Balance 110 -175 Lab Results - Last 24 hrs: Laboratory Results - last 24 hr 08/27/20 08/27/20 Range/Units 05:35 05:35 WBC 10.66 (4.0-11.0) K/uL RBC 5.09 (4.50-5.90) M/uL Hgb 14.3 (13.0-17.0) g/dL Hct 44.2 (38.0-50.0) % MCV 86.8 (80.0-98.0) fL MCH 28.1 (27.0-32.0) pg MCHC 32.4 (31.0-37.0) g/dL RDW Std Deviation 45.1 (28.0-62.0) fl RDW Coeff of Bailee 14 (11.0-15.0) % Plt Count 217 (150-400) K/uL MPV 12.10 H (7.40-12.00) fL Neut % (Auto) 82.2 H (48.0-80.0) % Lymph % (Auto) 8.4 L (16.0-40.0) % [place] % (Auto) 9.1 (0.0-15.0) % Eos % (Auto) 0.1 (0.0-7.0) % Baso % (Auto) 0.2 (0.0-1.5) % Neut # (Auto) 8.8 H (1.4-5.7) K/uL Lymph # (Auto) 0.9 (0.6-2.4) K/uL [place] # (Auto) 1.0 H (0.0-0.8) K/uL Eos # (Auto) 0.0 (0.0-0.7) K/uL Baso # (Auto) 0.0 (0.0-0.1) K/uL Nucleated RBC % 0.0 /100WBC Nucleated RBCs # 0 K/uL Sodium 137 (136-148) mmol/L Potassium 4.2 (3.5-5.1) mmol/L Chloride 103 (98-107) mmol/L Carbon Dioxide 25.9 (21.0-32.0) mmol/L BUN 26 H (7.0-18.0) mg/dL Creatinine 1.0 (0.8-1.3) mg/dL Est Cr Clr Drug Dosing 73.29 mL/min Estimated GFR (MDRD) > 60.0 ml/min Glucose 120 H (74-106) mg/dL Calcium 8.4 L (8.5-10.1) mg/dL Med Orders - Current: Current Medications Acetaminophen (Tylenol) 650 mg PO Q4H PRN PRN Reason: Pain (Mild 1-3)/fever Last Admin: 08/21/20 20:26 Dose: 650 mg Documented by: Albuterol/Ipratropium (Combivent Respimat) 0 gm INH Q4HRRT PRN PRN Reason: Dyspnea Last Admin: 08/27/20 06:26 Dose: 1 each Documented by: Amlodipine Besylate (Norvasc) 10 mg PO DAILY [facility] Last Admin: 08/27/20 09:32 Dose: 10 mg Documented by: Artificial Tears (Liquitears 1.4% Ophth Soln) 0 ml EYEBOTH BID [facility] Last Admin: 08/27/20 09:35 Dose: 1 drop Documented by: Aspirin (Halfprin) 81 mg PO DAILY [facility] Last Admin: 08/27/20 09:31 Dose: 81 mg Documented by: Carvedilol (Coreg) 12.5 mg PO BID [facility] Last Admin: 08/27/20 09:31 Dose: 12.5 mg Documented by: Dexamethasone (Dexamethasone) 6 mg PO DAILY [facility] Last Admin: 08/27/20 09:32 Dose: 6 mg Documented by: Enoxaparin Sodium (Lovenox) 40 mg SUBCUT BID [facility] Last Admin: 08/27/20 09:29 Dose: 40 mg Documented by: Omeprazole (Omeprazole) 20 mg PO ACBREAKFAST [facility] Last Admin: 08/27/20 06:30 Dose: 20 mg Documented by: Budesonide/Formoterol 160-4.5 Mcg/Puff 6 Gm Inhaler 0 each INH BID [facility] Last Admin: 08/27/20 09:35 Dose: 2 each Documented by: Sodium Chloride (Saline Flush) 10 ml FLUSH ASDIRECTED PRN PRN Reason: Keep Vein Open Sodium Chloride (Saline Flush) 2.5 ml FLUSH ASDIRECTED PRN PRN Reason: Keep Vein Open Last Admin: 08/24/20 21:54 Dose: 2.5 ml Documented by: Discontinued Medications Acetaminophen (Tylenol Extra Strength) 500 mg PO BID [facility] Albuterol/Ipratropium (Combivent Respimat) 0 gm INH Q4H PRN PRN Reason: Dyspnea Last Admin: 08/26/20 11:53 Dose: 1 each Documented by: Albuterol/Ipratropium (Duoneb 3.0-0.5 Mg/3 Ml) 3 ml NEB Q4HRRT [facility] Last Admin: 08/26/20 12:13 Dose: Not Given Documented by: Albuterol/Ipratropium (Duoneb 3.0-0.5 Mg/3 Ml) Confirm Administered Dose 3 ml .ROUTE .STK-MED ONE Stop: 08/22/20 10:22 Last Admin: 08/22/20 10:34 Dose: Not Given Documented by: Carvedilol (Coreg) 12.5 mg PO BID [facility] Last Admin: 08/26/20 21:21 Dose: 12.5 mg Documented by: Dexamethasone (Dexamethasone) 10 mg PO DAILY [facility] Last Admin: 08/21/20 08:44 Dose: 10 mg Documented by: Furosemide (Lasix) 20 mg IVPUSH ONETIME ONE Stop: 08/21/20 20:31 Last Admin: 08/21/20 21:13 Dose: 20 mg Documented by: Remdesivir 200 mg/ Sodium (Chloride) 250 mls @ 250 mls/hr IV ONETIME ONE Stop: 08/20/20 21:40 Last Admin: 08/20/20 23:33 Dose: 250 mls/hr Documented by: Remdesivir 100 mg/ Sodium (Chloride) 100 mls @ 100 mls/hr IV Q24H [facility] Stop: 08/24/20 22:59 Last Admin: 08/24/20 21:55 Dose: 100 mls/hr Documented by: Levofloxacin/Dextrose 750 mg/ (Premix) 150 mls @ 100 mls/hr IV Q24H [facility] Last Admin: 08/26/20 22:53 Dose: 100 mls/hr Documented by: Pantoprazole Sodium 40 mg/ (Sodium Chloride) 10 mls @ 300 mls/hr IV DAILY [facility] Last Admin: 08/22/20 08:50 Dose: 300 mls/hr Documented by: Influenza Virus Vaccine (Fluzone High-Dose Quad 2020-21) 240 mcg IM .ONCE ONE Stop: 08/21/20 09:01 Influenza Virus Vaccine (Fluzone High-Dose Quad 2020-21) 240 mcg IM .ONCE ONE Stop: 08/27/20 11:57 Omeprazole (Omeprazole) 20 mg PO ONETIME ONE Stop: 08/22/20 20:32 Last Admin: 08/22/20 20:35 Dose: 20 mg Documented by: Fenofibrate Nanocrystallized 145mg 1 each PO DAILY [facility] Last Admin: 08/22/20 09:32 Dose: Not Given Documented by:
[2020-08-27 19:33] VITALS: BP 142/89; PULSE 89
== END 2020-08-27 18:09 | disposition home or self-care (01) | DRG 177 ==
LOC: MW.ED 18:45 → MW.ICU 20:53 → MW.MS 08-25 17:26
PROVIDERS: ADMIT Student in an Organized Health Care Education/Training Program; ATTEND Student in an Organized Health Care Education/Training Program
PROC: XW033E5 Introduction of Remdesivir Anti-infective into Peripheral Vein, Percutaneous Approach, New Technology Group 5 (ICD-10-PCS; principal; 2020-08-20)
PROC: 5A09457 Assistance with Respiratory Ventilation, 24-96 Consecutive Hours, Continuous Positive Airway Pressure (ICD-10-PCS; 2020-08-20)
PROC: XW13325 Transfusion of Convalescent Plasma (Nonautologous) into Peripheral Vein, Percutaneous Approach, New Technology Group 5 (ICD-10-PCS; 2020-08-20)
PROC: 5A0945A Assistance with Respiratory Ventilation, 24-96 Consecutive Hours, High Flow/Velocity Cannula (ICD-10-PCS; 2020-08-21)
DX: U07.1 COVID-19 (principal); R09.02 Hypoxemia; J12.89 Other viral pneumonia; J96.01 Acute respiratory failure with hypoxia; I10 Essential (primary) hypertension; E78.00 Pure hypercholesterolemia, unspecified; K44.9 Diaphragmatic hernia without obstruction or gangrene; J44.9 Chronic obstructive pulmonary disease, unspecified; Z96.619 Presence of unspecified artificial shoulder joint; G47.33 Obstructive sleep apnea (adult) (pediatric); M19.90 Unspecified osteoarthritis, unspecified site; Z96.659 Presence of unspecified artificial knee joint; Z79.82 Long term (current) use of aspirin; I25.2 Old myocardial infarction; Z79.899 Other long term (current) drug therapy
CPT/HCPCS: 36415; 36430; 71045; 71045-26; 80048; 80053; 83735; 84100; 84484; 85025; 85379; 85610; 85730; 86850; 86900; 86901; 90662; 93005; 94640; 94660; 94664; 99221; 99232; 99238; 99285; 99285-25; A9270-GY; C9113; G0008; J1650; J1956; J7050; J7620-GY; J8540; P9017; U0002

== ENCOUNTER 2021-07-31 10:43 | Inpatient (IN) | payer MEDICARE, BC ==
[2021-07-31] MEDS ORDERED: Lactated Ringers 1,000 ML IV ONE ×2 (11:56→15:45)
[2021-07-31 12:00] LABS: CARBON DIOXIDE,CO2 25.1 mmol/L (21.0-32.0)
[2021-07-31] MEDS ORDERED: cefTRIAXone 2 GM in Premix Bag 1 BAG IV ONE (12:11)
--- NOTE | 2021-07-31 12:13 | EDM.PDOC ---
ED HPI GENERAL MEDICAL PROBLEM - General Chief Complaint: Genitourinary Problem Stated Complaint: BLADDER PROBLEMS Time Seen by Provider: 07/31/21 10:59 - History of Present Illness INITIAL COMMENTS - FREE TEXT/NARRATIVE: CHIEF COMPLAINT(S): "I am having some problems with my bladder." HISTORY OF PRESENT ILLNESS: This is a 71-year-old man and with a past medical history of obstructive sleep apnea, rheumatoid arthritis, hypertension, hyperlipidemia who comes to the emergency department with a chief complaint of "I am having problems with my bladder." The patient states that throughout the evening last night he had to use the bathroom every 15 minutes. He states that there were times when he did not make it to the restroom. He denies any back pain, dysuria, hematuria, perianal, saddle anesthesia, or back injury. He states that this feels exactly like the last time he had a urinary tract infection. He states that he had a fever of 102 this morning which he took Tylenol. He denies any chest pain, shortness of breath, abdominal pain, nausea or vomiting. He denies any diarrhea. He denies any pain at all whatsoever. REVIEW OF SYSTEMS: Constitutional: Denies fever, chills. Eyes: Denies eye pain Ears, Nose, Mouth, & Throat: Denies earache Cardiovascular: Denies chest pain Respiratory: Denies shortness of breath Gastrointestinal: Denies Nausea, vomiting, diarrhea, hematochezia. Genitourinary: Positive for increased urinary frequency. Denies hematuria, dysuria, penile discharge or penile pain skin:Denies a rash MSK: Denies joint pain Neurological: Denies blurred vision Psychiatric: Denies depression PAST MEDICAL HISTORY: As per history of present illness and as reviewed below otherwise noncontributory. SURGICAL HISTORY: As per history of present illness and as reviewed below otherwise noncontributory. SOCIAL HISTORY: As per history of present illness and as reviewed below otherwise noncontributory. FAMILY HISTORY: As per history of present illness and as reviewed below otherwise noncontributory. EXAMINATION OF ORGAN SYSTEMS/BODY AREAS: Constitutional: Blood pressure is 146/78, heart rate 90, respiratory rate 22 with an oxygen saturation of 91% on room air. Temperature 36.9 General: Well-appearing man who is in no acute distress Psychiatric: Appropriate mood and affect. Eyes: No scleral icterus or conjunctival erythema ENMT: Moist mucous membranes. No pharyngeal erythema Cardiovascular: Regular, rate, and rhythm. No gallops, murmurs, or rubs. Bilateral upper extremity pulses symmetric and intact. No peripheral edema. No JVD. Respiratory: Lungs clear to auscultation bilaterally. No wheezes, rales, or rhonchi. Gastrointestinal: Soft, non-tender, non-distended. Normoactive bowel sounds Genitourinary: No suprapubic tenderness Musculoskeletal: Normal range of motion. Skin: No lesions or abrasions. Neurological: Alert, GCS 15 MEDICAL DECISION MAKING AND COURSE IN THE ED WITH INTERPRETATION/REVIEW OF DIAGNOSTIC STUDIES: This is a 71-year-old man with a past medical history of hypertension, hyperlipidemia, obstructive sleep apnea who comes to the emergency department with increased urinary frequency who is tachypneic and borderline hypoxic who is normotensive and not tachycardic. At this time given the patient's prior history of urinary tract infection and similar symptoms we will obtain a urinalysis. Will obtain basic labs including CBC and BMP and magnesium. front desk monitor at this time did reveal sinus rhythm and pulse oximetry with good waveform was 91 to 92% on room air. It does appear from prior charts that the patient does have chronic hypoxia and this is around the patient's baseline. Patient denies any cough or any other symptoms. We did obtain a bladder scan which was 19 cc. Therefore I do not suspect any cauda equina symptoms. No post void is needed at this time. Laboratory: CBC reveals a leukocytosis of 22.41 and thrombocytopenia at 117 with neutrophilic predominance. BMP reveals elevated creatinine of 1.4 which is up from prior at 1.2, hyperglycemia at 132 and hypomagnesemia at 1.3. Given the reported fever, tachypnea, elevated white count the patient possibly meets septic criteria. Will obtain blood cultures and lactic acid. We will provide the patient 1 L of lactated Ringer's bolus at this time. We will hold off on 30 cc/kg as the patient is normotensive. We will reevaluate after lactic acid. Urinalysis did come back and was positive for nitrite, leukocyte esterase. Interpretation: Positive Given that urinalysis positive I did review the patient's prior microbiology. It is esquivel susceptible therefore I will start the patient on IV ceftriaxone. This will be administered after obtaining blood cultures. Lactic acid was 1.2 and INR was within normal limits.. At this time the patient does not meet criteria for 30 cc/kg bolus. We did obtain blood cultures before antibiotic administration. We will start the patient on lactated Ringer's at 150 cc/h. At this time I did discuss admission with the patient given the possibility of sepsis secondary to his urinary tract infection. He was requesting to be flown to [place]. I did discuss him at this time that he does not meet criteria for emergent flight to an [id number]. I did discuss with him at this time we do have the capability to take care of this patient at this hospital. He was amenable to admission here. He was amenable to obtaining a Covid swab at that time therefore we will obtain a Covid swab. I contacted Dr. Harman who accepted the patient for admission. The radiological images were viewed by myself along with reading the report from the radiologist. Chest x-ray does not reveal any acute cardiopulmonary process. There is stable streaking opacities in the lung bases which may represent atelectasis. With stable cardiomegaly. DISPOSITION: The patient was admitted to the hospital in stable condition CONDITION: Serious PROCEDURES: Cardiac monitoring interpretation, pulse oximetry interpretation FINAL IMPRESSION(S)/DIAGNOSES: 1. Acute sepsis secondary to urinary tract infection Steve Coronel M.D. Abdomen Pain Score (Numeric/FACES): 8 - Related Data Allergies Allergy/AdvReac Type Severity Reaction Status Date / Time No Known Allergies Allergy Verified 07/31/21 16:16 Home Meds: Home Meds Acetaminophen [Tylenol Extra Strength] 1 tab PO BID 07/07/15 [History] Aspirin [Halfprin] 1 tab PO DAILY 07/07/15 [History] Fenofibrate Nanocrystallized [Fenofibrate] 145 mg PO DAILY 07/07/15 [History] Olmesartan Medoxomil [Benicar] 40 mg PO DAILY 07/07/15 [History] Omeprazole 20 mg PO Q2D 07/07/15 [History] Sildenafil Citrate [Viagra] 1 tab PO ASDIRECTED 07/07/15 [History] Simvastatin [Zocor] 20 mg PO BEDTIME 07/07/15 [History] amLODIPine Besylate [Amlodipine Besylate] 10 mg PO DAILY 07/07/15 [History] carvediloL [Carvedilol] 12.5 mg PO BID 07/07/15 [History] Albuterol Sulfate [Albuterol Sulfate Hfa] 2 puff IH Q4HR PRN 08/20/20 [History] Budesonide/Formoterol Fumarate [Symbicort 160-4.5 Mcg Inhaler] 2 puff INH BID 08/20/20 [History] Doxycycline [Vibramycin] 1 tab PO BID 08/20/20 [History] cycloSPORINE [Restasis Multidose] 1 drop EYEBOTH BID 08/20/20 [History] Fluticasone Propion/Salmeterol [Advair 250-50 Diskus] 1 each IH BID #1 diskus 08/27/20 [Rx] dexAMETHasone [Dexamethasone] 2 mg PO DAILY #14 tab 08/27/20 [Rx] Past Medical History HEENT History: Reports: Other (See Below) Other HEENT History: dry eyes Cardiovascular History: Reports: High Cholesterol, Hypertension, [facility] Respiratory History: Reports: COPD Other Respiratory History: CPAP at night Gastrointestinal History: Reports: Hiatal Hernia Musculoskeletal History: Reports: Arthritis Immunologic History: Reports: None Oncologic (Cancer) History: Reports: None - Infectious Disease History Infectious Disease History: Reports: Novel Coronavirus - Past Surgical History GI Surgical History: Reports: None Musculoskeletal Surgical History: Reports: Joint Replacement, Shoulder Surgery Social & Family History - Family History Family Medical History: No Pertinent Family History - Tobacco Use Second Hand Smoke Exposure: No - Caffeine Use Caffeine Use: Reports: None Other Caffeine Use: 1 or 2 cups per day - Recreational Drug Use Recreational Drug Use: No ED ROS GENERAL - Review of Systems Review Of Systems: See Below ED EXAM, GENERAL - Physical Exam Exam: See Below Course - Vital Signs Last Recorded V/S: Last Vital Signs Temp 36.8 C 07/31/21 16:12 Pulse 90 07/31/21 16:12 Resp 20 07/31/21 16:12 BP 146/72 H 07/31/21 16:12 Pulse Ox 93 L 07/31/21 16:12 - Orders/Labs/Meds Orders: Active Orders 24 hr Category Date Time Status CULTURE BLOOD [BC] Stat Lab 07/31/21 12:06 Received CULTURE BLOOD [BC] Stat Lab 07/31/21 12:09 Received CULTURE URINE [MREF] Stat Lab 07/31/21 12:00 Received Blood Culture x2 Reflex Set [OM.PC] Stat Oth 07/31/21 11:56 Ordered Medication Orders Acetaminophen (Acetaminophen 325 Mg Tab) 650 mg PO Q4H PRN PRN Reason: Pain/Fever Albuterol/Ipratropium (Albuterol/Ipratropium 3.0-0.5 Mg/3 Ml Neb Soln) 3 ml NEB Q4HRRT PRN PRN Reason: Shortness Of Breath/wheezing Docusate Sodium (Docusate Sodium 100 Mg Cap) 100 mg PO BID PRN PRN Reason: Constipation Heparin Sodium (Porcine) (Heparin Sodium 5,000 Units/Ml Vial) 5,000 units SUBCUT Q12HR SERGIO Ceftriaxone Sodium/Dextrose 1 (gm/ Premix) 50 mls @ 100 mls/hr IV Q24H SERGIO Ondansetron HCl (Ondansetron 4 Mg/2 Ml Sdv) 4 mg IVPUSH Q4H PRN PRN Reason: Nausea Sodium Chloride (Sodium Chloride 0.9% 2.5 Ml Syringe) 2.5 ml FLUSH ASDIRECTED PRN PRN Reason: Keep Vein Open Labs: Laboratory Tests 07/31/21 07/31/21 07/31/21 Range/Units 10:30 10:30 10:30 WBC 22.41 H (4.0-11.0) K/uL RBC 5.24 (4.50-5.90) M/uL Hgb 15.2 (13.0-17.0) g/dL Hct 46.1 (38.0-50.0) % MCV 88.0 (80.0-98.0) fL MCH 29.0 (27.0-32.0) pg MCHC 33.0 (31.0-37.0) g/dL RDW Std Deviation 45.9 (28.0-62.0) fl RDW Coeff of Bailee 14 (11.0-15.0) % Plt Count 117 L (150-400) K/uL MPV 11.90 (7.40-12.00) fL Neut % (Auto) 88.6 H (48.0-80.0) % Lymph % (Auto) 5.0 L (16.0-40.0) % [place] % (Auto) 6.2 (0.0-15.0) % Eos % (Auto) 0.1 (0.0-7.0) % Baso % (Auto) 0.1 (0.0-1.5) % Neut # (Auto) 19.8 H (1.4-5.7) K/uL Lymph # (Auto) 1.1 (0.6-2.4) K/uL [place] # (Auto) 1.4 H (0.0-0.8) K/uL Eos # (Auto) 0.0 (0.0-0.7) K/uL Baso # (Auto) 0.0 (0.0-0.1) K/uL Nucleated RBC % 0.0 /100WBC Nucleated RBCs # 0 K/uL INR Sodium 138 (136-148) mmol/L Potassium 4.0 (3.5-5.1) mmol/L Chloride 101 (98-107) mmol/L Carbon Dioxide 25.1 (21.0-32.0) mmol/L BUN 14 (7.0-18.0) mg/dL Creatinine 1.4 H (0.8-1.3) mg/dL Est Cr Clr Drug Dosing 51.58 mL/min Estimated GFR (MDRD) 49.7 ml/min Glucose 132 H (74-106) mg/dL Lactic Acid (0.4-2.0) mmol/L Calcium 9.1 (8.5-10.1) mg/dL Magnesium 1.3 L (1.8-2.4) mg/dL Total Bilirubin 1.2 H (0.2-1.0) mg/dL AST 19 (15-37) IU/L Urine Color Urine Appearance Urine pH (5.0-8.0) Ur Specific [place] (1.001-1.035) Urine Protein (NEGATIVE) mg/dL Urine Glucose (UA) (NEGATIVE) mg/dL Urine Ketones (NEGATIVE) mg/dL Urine Occult Blood (NEGATIVE) Urine Nitrite (NEGATIVE) Urine Bilirubin (NEGATIVE) Urine Urobilinogen (<2.0) EU/dL Ur Leukocyte Esterase (NEGATIVE) Urine RBC (0-2/HPF) Urine WBC (0-5/HPF) Ur Epithelial Cells (NONE-FEW) Urine Bacteria (NEGATIVE) SARS-CoV-2 RNA (MANAS) (NEGATIVE) 07/31/21 07/31/21 07/31/21 Range/Units 12:00 12:09 12:09 WBC (4.0-11.0) K/uL RBC (4.50-5.90) M/uL Hgb (13.0-17.0) g/dL Hct (38.0-50.0) % MCV (80.0-98.0) fL MCH (27.0-32.0) pg MCHC (31.0-37.0) g/dL RDW Std Deviation (28.0-62.0) fl RDW Coeff of Bailee (11.0-15.0) % Plt Count (150-400) K/uL MPV (7.40-12.00) fL Neut % (Auto) (48.0-80.0) % Lymph % (Auto) (16.0-40.0) % [place] % (Auto) (0.0-15.0) % Eos % (Auto) (0.0-7.0) % Baso % (Auto) (0.0-1.5) % Neut # (Auto) (1.4-5.7) K/uL Lymph # (Auto) (0.6-2.4) K/uL [place] # (Auto) (0.0-0.8) K/uL Eos # (Auto) (0.0-0.7) K/uL Baso # (Auto) (0.0-0.1) K/uL Nucleated RBC % /100WBC Nucleated RBCs # K/uL INR 1.19 Sodium (136-148) mmol/L Potassium (3.5-5.1) mmol/L Chloride (98-107) mmol/L Carbon Dioxide (21.0-32.0) mmol/L BUN (7.0-18.0) mg/dL Creatinine (0.8-1.3) mg/dL Est Cr Clr Drug Dosing mL/min Estimated GFR (MDRD) ml/min Glucose (74-106) mg/dL Lactic Acid 1.2 (0.4-2.0) mmol/L Calcium (8.5-10.1) mg/dL Magnesium (1.8-2.4) mg/dL Total Bilirubin (0.2-1.0) mg/dL AST (15-37) IU/L Urine Color YELLOW Urine Appearance SLT CLOUDY Urine pH 5.5 (5.0-8.0) Ur Specific [place] 1.025 (1.001-1.035) Urine Protein TRACE H (NEGATIVE) mg/dL Urine Glucose (UA) NEGATIVE (NEGATIVE) mg/dL Urine Ketones TRACE H (NEGATIVE) mg/dL Urine Occult Blood MODERATE H (NEGATIVE) Urine Nitrite POSITIVE H (NEGATIVE) Urine Bilirubin NEGATIVE (NEGATIVE) Urine Urobilinogen 0.2 (<2.0) EU/dL Ur Leukocyte Esterase SMALL H (NEGATIVE) Urine RBC 0-3 (0-2/HPF) Urine WBC 20-30 (0-5/HPF) Ur Epithelial Cells RARE (NONE-FEW) Urine Bacteria 1+ H (NEGATIVE) SARS-CoV-2 RNA (MANAS) (NEGATIVE) 07/31/21 Range/Units 14:03 WBC (4.0-11.0) K/uL RBC (4.50-5.90) M/uL Hgb (13.0-17.0) g/dL Hct (38.0-50.0) % MCV (80.0-98.0) fL MCH (27.0-32.0) pg MCHC (31.0-37.0) g/dL RDW Std Deviation (28.0-62.0) fl RDW Coeff of Bailee (11.0-15.0) % Plt Count (150-400) K/uL MPV (7.40-12.00) fL Neut % (Auto) (48.0-80.0) % Lymph % (Auto) (16.0-40.0) % [place] % (Auto) (0.0-15.0) % Eos % (Auto) (0.0-7.0) % Baso % (Auto) (0.0-1.5) % Neut # (Auto) (1.4-5.7) K/uL Lymph # (Auto) (0.6-2.4) K/uL [place] # (Auto) (0.0-0.8) K/uL Eos # (Auto) (0.0-0.7) K/uL Baso # (Auto) (0.0-0.1) K/uL Nucleated RBC % /100WBC Nucleated RBCs # K/uL INR Sodium (136-148) mmol/L Potassium (3.5-5.1) mmol/L Chloride (98-107) mmol/L Carbon Dioxide (21.0-32.0) mmol/L BUN (7.0-18.0) mg/dL Creatinine (0.8-1.3) mg/dL Est Cr Clr Drug Dosing mL/min Estimated GFR (MDRD) ml/min Glucose (74-106) mg/dL Lactic Acid (0.4-2.0) mmol/L Calcium (8.5-10.1) mg/dL Magnesium (1.8-2.4) mg/dL Total Bilirubin (0.2-1.0) mg/dL AST (15-37) IU/L Urine Color Urine Appearance Urine pH (5.0-8.0) Ur Specific [place] (1.001-1.035) Urine Protein (NEGATIVE) mg/dL Urine Glucose (UA) (NEGATIVE) mg/dL Urine Ketones (NEGATIVE) mg/dL Urine Occult Blood (NEGATIVE) Urine Nitrite (NEGATIVE) Urine Bilirubin (NEGATIVE) Urine Urobilinogen (<2.0) EU/dL Ur Leukocyte Esterase (NEGATIVE) Urine RBC (0-2/HPF) Urine WBC (0-5/HPF) Ur Epithelial Cells (NONE-FEW) Urine Bacteria (NEGATIVE) SARS-CoV-2 RNA (MANAS) NEGATIVE (NEGATIVE) Meds: Medications Generic Name Dose Route Start Last Admin Trade Name Freq PRN Reason Stop Dose Admin Acetaminophen 650 mg 07/31/21 16:00 Acetaminophen 325 Mg Tab PO Q4H PRN Pain/Fever Albuterol/Ipratropium 3 ml 07/31/21 16:00 Albuterol/Ipratropium 3.0-0.5 Mg/3 Ml Neb Soln NEB Q4HRRT PRN Shortness Of Breath/wheezing Docusate Sodium 100 mg 07/31/21 21:00 Docusate Sodium 100 Mg Cap PO BID PRN Constipation Heparin Sodium (Porcine) 5,000 units 07/31/21 21:00 Heparin Sodium 5,000 Units/Ml Vial SUBCUT Q12HR SERGIO Ceftriaxone Sodium/Dextrose 1 50 mls @ 100 mls/hr 08/01/21 12:00 gm/ Premix IV Q24H SERGIO Ondansetron HCl 4 mg 07/31/21 16:00 Ondansetron 4 Mg/2 Ml Sdv IVPUSH Q4H PRN Nausea Sodium Chloride 2.5 ml 07/31/21 15:35 Sodium Chloride 0.9% 2.5 Ml Syringe FLUSH ASDIRECTED PRN Keep Vein Open Discontinued Medications Generic Name Dose Route Start Last Admin Trade Name Zeynep PRN Reason Stop Dose Admin Acetaminophen 1,000 mg 07/31/21 14:31 07/31/21 14:36 Acetaminophen 500 Mg Tab PO 07/31/21 14:32 1,000 mg ONETIME ONE Administration Lactated Ringer's 1,000 mls @ 999 mls/hr 07/31/21 11:56 07/31/21 12:26 Ringers, Lactated IV 07/31/21 12:56 999 mls/hr .BOLUS ONE Administration Ceftriaxone Sodium/Dextrose 2 50 mls @ 100 mls/hr 07/31/21 12:11 07/31/21 12:26 gm/ Premix IV 07/31/21 12:40 100 mls/hr ONETIME ONE Administration Lactated Ringer's 1,000 mls @ 150 mls/hr 07/31/21 14:00 07/31/21 14:01 Ringers, Lactated IV 150 mls/hr ASDIRECTED SERGIO Administration Lactated Ringer's 1,000 mls @ 150 mls/hr 07/31/21 15:45 07/31/21 16:32 Ringers, Lactated IV 07/31/21 22:24 Not Given ONETIME ONE Magnesium Oxide 800 mg 07/31/21 13:24 07/31/21 13:42 Magnesium Oxide 400 Mg Tab PO 07/31/21 13:25 800 mg ONETIME ONE Administration Departure - Departure Time of Disposition: 14:07 Disposition: Admitted As Inpatient 64 Condition: Serious Clinical Impression: UTI, Urinary tract infectious disease, Sepsis - Discharge Information Sepsis Event Note (ED) - Evaluation Sepsis Screening Result: No Definite Risk - Focused Exam Vital Signs: Vital Signs Temp Pulse Resp BP Pulse Ox 07/31/21 11:22 36.9 C 90 22 H 146/78 H 91 L - My Orders Last 24 Hours: My Active Orders 07/31/21 11:56 Blood Culture x2 Reflex Set [OM.PC] Stat 07/31/21 12:00 CULTURE URINE [MREF] Stat 07/31/21 12:06 CULTURE BLOOD [BC] Stat 07/31/21 12:09 CULTURE BLOOD [BC] Stat - Assessment/Plan Last 24 Hours: My Active Orders 07/31/21 11:56 Blood Culture x2 Reflex Set [OM.PC] Stat 07/31/21 12:00 CULTURE URINE [MREF] Stat 07/31/21 12:06 CULTURE BLOOD [BC] Stat 07/31/21 12:09 CULTURE BLOOD [BC] Stat
--- NOTE | 2021-07-31 12:54 | CR ---
INDICATION: Hypoxia, sepsis workup. TECHNIQUE: Chest 1 view. COMPARISON: Chest radiograph 08/22/2020. FINDINGS: Decreased interstitial opacities compared to prior exam. Stable streaky opacities in the lung bases which may represent atelectasis. No new focal consolidation. No pleural effusion or pneumothorax. Stable cardiomegaly with prominent central pulmonary vascularity. Partially visualized right shoulder arthroplasty. Degenerative changes of the left shoulder. IMPRESSION: 1. Stable streaky opacities in the lung bases which may represent atelectasis. 2. Stable cardiomegaly. Dictated by Kate Sheriff MD @ 07/31/2021 12:53:17 PM (Electronically Signed)
[2021-07-31] MEDS ORDERED: Magnesium Oxide 400 MG Tab PO ONE (13:24)
[2021-07-31] MEDS ORDERED: Lactated Ringers 1,000 ML IV SCH (14:00)
[2021-07-31] MEDS ORDERED: Acetaminophen 500 MG Tab PO ONE (14:31)
--- NOTE | 2021-07-31 14:59 | PCM.HP.2 ---
H&P History of Present Illness - General Date of Service: 07/31/21 Admit Problem/Dx: Admission Diagnosis/Problem Admission Diagnosis/Problem UTI, Urinary tract infectious disease Source of Information: Patient History Limitations: Reports: No Limitations - History of Present Illness Initial Comments - Free Text/Narative: This 71-year-old man with past medical history of MEAGAN on CPA, RA, hypertension, hyperlipidemia, CAD, combined systolic and diastolic CHF, and COPD not oxygen dependent presented to the ER today with concerns of troubles with his bladder. He reports last evening he was using the bathroom every 15 minutes. He said at times he could not make it to the bathroom and had bouts of incontinence. He reports this feels exactly like the last time when he had a urinary tract infection. He states today he had a fever of 102 F in which he took Tylenol. He denies any history of prostate troubles. He does report that in April he had a hip replacement in which she had trouble urinating post operatively he was given Flomax and a [place] catheter. But since then he has been doing well. He denies any chest pain, shortness of breath, abdominal pain or nausea and vomiting. Denies any diarrhea or constipation. He denies any back pain or recent back injury denies any stool incontinence and no saddle anesthesia. He denies any dysuria flank pain or hematuria. He also denies any perianal tenderness or rectal tenderness. Patient does report having Covid last year as well as being fully vaccinated now. In the ER leukocytosis significant at 22,000. Platelet count 117,000. Sodium 138 potassium 4.0 BUN 14 creatinine 1.4. Glucose 132 lactic acid 1.2. Bilirubin 1.2. UA obtained which shows 20-30 WBCs +1 bacteria small leukocyte esterase positive nitrites. Chest x-ray obtained which shows stable streaky opacities in the left lower bases which may represent atelectasis. Stable cardiomegaly. On arrival patient had tachypnea 22 oxygen saturation 91% blood pressure 146/78 pulse was 90 patient afebrile 98.4. Due to positive UA patient was treated with Rocephin 2 g IV. He was also given magnesium along with 1 L LR bolus. Patient to be admitted inpatient for sepsis likely secondary to urinary act infection. Patient scheduled for right total knee arthroplasty August 01, 2021. has been contact with clinic. Patient from outpatient standpoint. It does appear patient has stable chronic systolic and diastolic CHF. Patient has no history of BPH but it appears that postoperatively from his hip in April he had issues with voiding and was placed in a [place] catheter as well started on Flomax. He denies seeing urology. Abdomen Pain Score (Numeric/FACES): 8 - Related Data Allergies/Adverse Reactions: Allergies Allergy/AdvReac Type Severity Reaction Status Date / Time No Known Allergies Allergy Verified 07/31/21 11:25 Home Medications: Home Meds Acetaminophen [Tylenol Extra Strength] 1 tab PO BID 07/07/15 [History] Aspirin [Halfprin] 1 tab PO DAILY 07/07/15 [History] Fenofibrate Nanocrystallized [Fenofibrate] 145 mg PO DAILY 07/07/15 [History] Olmesartan Medoxomil [Benicar] 40 mg PO DAILY 07/07/15 [History] Omeprazole 20 mg PO Q2D 07/07/15 [History] Sildenafil Citrate [Viagra] 1 tab PO ASDIRECTED 07/07/15 [History] Simvastatin [Zocor] 20 mg PO BEDTIME 07/07/15 [History] amLODIPine Besylate [Amlodipine Besylate] 10 mg PO DAILY 07/07/15 [History] carvediloL [Carvedilol] 12.5 mg PO BID 07/07/15 [History] Albuterol Sulfate [Albuterol Sulfate Hfa] 2 puff IH Q4HR PRN 08/20/20 [History] Budesonide/Formoterol Fumarate [Symbicort 160-4.5 Mcg Inhaler] 2 puff INH BID 08/20/20 [History] Doxycycline [Vibramycin] 1 tab PO BID 08/20/20 [History] cycloSPORINE [Restasis Multidose] 1 drop EYEBOTH BID 08/20/20 [History] Fluticasone Propion/Salmeterol [Advair 250-50 Diskus] 1 each IH BID #1 diskus 08/27/20 [Rx] dexAMETHasone [Dexamethasone] 2 mg PO DAILY #14 tab 08/27/20 [Rx] Past Medical History HEENT History: Reports: Other (See Below) Other HEENT History: dry eyes Cardiovascular History: Reports: High Cholesterol, Hypertension, [place]. Denies: Afib, Blood Clots/VTE/DVT, Stents Respiratory History: Reports: COPD, Sleep Apnea Other Respiratory History: CPAP at night Gastrointestinal History: Reports: Hiatal Hernia Genitourinary History: Reports: UTI, Recurrent (With sepsis previously) Musculoskeletal History: Reports: RA Neurological History: Reports: None. Denies: CVA, TIA Endocrine/Metabolic History: Reports: Obesity/BMI 30+. Denies: Diabetes, Type II, Hypothyroidism Immunologic History: Reports: None Oncologic (Cancer) History: Reports: None - Infectious Disease History Infectious Disease History: Reports: Novel Coronavirus - Past Surgical History GI Surgical History: Reports: None Male Surgical History: Reports: None Musculoskeletal Surgical History: Reports: Joint Replacement, Shoulder Surgery Social & Family History - Family History Family Medical History: No Pertinent Family History - Tobacco Use Second Hand Smoke Exposure: No - Caffeine Use Caffeine Use: Reports: None Other Caffeine Use: 1 or 2 cups per day - Recreational Drug Use Recreational Drug Use: No H&P Review of Systems - Review of Systems: Review Of Systems: See Below General: Reports: Fever, Chills, Malaise, Fatigue HEENT: Reports: No Symptoms. Denies: Headaches, Sinus Congestion, Visual Changes Pulmonary: Reports: No Symptoms. Denies: Shortness of Breath (Shortness of breath currently is at baseline), Pleuritic Chest Pain, Cough Cardiovascular: Reports: No Symptoms. Denies: Chest Pain, Dyspnea on Exertion, Edema Gastrointestinal: Reports: No Symptoms. Denies: Abdominal Pain, Black Stool, Bloody Stool, Diarrhea, Nausea, Vomiting Genitourinary: Reports: Frequency, Urgency, Incontinence. Denies: Dysuria, Burning, Hematuria, Discharge, Flank Pain Musculoskeletal: Reports: No Symptoms. Denies: Neck Pain Skin: Reports: No Symptoms Psychiatric: Reports: No Symptoms Neurological: Reports: No Symptoms Hematologic/Lymphatic: Reports: No Symptoms Immunologic: Reports: No Symptoms Exam - Exam Exam: See Below - Vital Signs Vital Signs: Last Vital Signs Temp 101.3 F H 07/31/21 14:36 Pulse 90 07/31/21 11:22 Resp 22 H 07/31/21 11:22 BP 146/78 H 07/31/21 11:22 Pulse Ox 91 L 07/31/21 11:22 Weight: 130.635 kg - Exam Quality Assessment: Supplemental Oxygen (2 L nasal cannula), DVT Prophylaxis General: Alert, Oriented, Cooperative HEENT: Conjunctiva Clear. No: Mucosa Moist & [place] (Lips dry and cracked) Lungs: Normal Respiratory Effort, Decreased Breath Sounds (Bibasilar). No: Crackles, Wheezing Cardiovascular: Regular Rate, Regular Rhythm, Normal S1, Normal S2. No: Irregular Rhythm, Systolic Murmur GI/Abdominal Exam: Normal Bowel Sounds, Soft, Non-Tender Back Exam: Normal Inspection, Full Range of Motion Extremities: Normal Inspection, Normal Range of Motion, Non-Tender, Pedal Edema (Scant 2+1 nonpitting lower extremities) Skin: Warm, Dry Neurological: Cranial Nerves Intact Neuro Extensive - Mental Status: Alert, Oriented x3, Normal Mood/Affect Neuro Extensive - Motor, Sensory, Reflexes: CN II-XII Intact Psychiatric: Alert, Normal Affect, Normal Mood - Patient Data Lab Results Last 24 hrs: Laboratory Results - last 24 hr 07/31/21 07/31/21 07/31/21 Range/Units 10:30 10:30 10:30 WBC 22.41 H (4.0-11.0) K/uL RBC 5.24 (4.50-5.90) M/uL Hgb 15.2 (13.0-17.0) g/dL Hct 46.1 (38.0-50.0) % MCV 88.0 (80.0-98.0) fL MCH 29.0 (27.0-32.0) pg MCHC 33.0 (31.0-37.0) g/dL RDW Std Deviation 45.9 (28.0-62.0) fl RDW Coeff of [place] 14 (11.0-15.0) % Plt Count 117 L (150-400) K/uL MPV 11.90 (7.40-12.00) fL Neut % (Auto) 88.6 H (48.0-80.0) % Lymph % (Auto) 5.0 L (16.0-40.0) % [place] % (Auto) 6.2 (0.0-15.0) % Eos % (Auto) 0.1 (0.0-7.0) % Baso % (Auto) 0.1 (0.0-1.5) % Neut # (Auto) 19.8 H (1.4-5.7) K/uL Lymph # (Auto) 1.1 (0.6-2.4) K/uL [place] # (Auto) 1.4 H (0.0-0.8) K/uL Eos # (Auto) 0.0 (0.0-0.7) K/uL Baso # (Auto) 0.0 (0.0-0.1) K/uL Nucleated RBC % 0.0 /100WBC Nucleated RBCs # 0 K/uL INR Sodium 138 (136-148) mmol/L Potassium 4.0 (3.5-5.1) mmol/L Chloride 101 (98-107) mmol/L Carbon Dioxide 25.1 (21.0-32.0) mmol/L BUN 14 (7.0-18.0) mg/dL Creatinine 1.4 H (0.8-1.3) mg/dL Est Cr Clr Drug Dosing 51.58 mL/min Estimated GFR (MDRD) 49.7 ml/min Glucose 132 H (74-106) mg/dL Lactic Acid (0.4-2.0) mmol/L Calcium 9.1 (8.5-10.1) mg/dL Magnesium 1.3 L (1.8-2.4) mg/dL Total Bilirubin 1.2 H (0.2-1.0) mg/dL AST 19 (15-37) IU/L Urine Color Urine Appearance Urine pH (5.0-8.0) Ur Specific [place] (1.001-1.035) Urine Protein (NEGATIVE) mg/dL Urine Glucose (UA) (NEGATIVE) mg/dL Urine Ketones (NEGATIVE) mg/dL Urine Occult Blood (NEGATIVE) Urine Nitrite (NEGATIVE) Urine Bilirubin (NEGATIVE) Urine Urobilinogen (<2.0) EU/dL Ur Leukocyte Esterase (NEGATIVE) Urine RBC (0-2/HPF) Urine WBC (0-5/HPF) Ur Epithelial Cells (NONE-FEW) Urine Bacteria (NEGATIVE) 07/31/21 07/31/21 07/31/21 Range/Units 12:00 12:09 12:09 WBC (4.0-11.0) K/uL RBC (4.50-5.90) M/uL Hgb (13.0-17.0) g/dL Hct (38.0-50.0) % MCV (80.0-98.0) fL MCH (27.0-32.0) pg MCHC (31.0-37.0) g/dL RDW Std Deviation (28.0-62.0) fl RDW Coeff of [place] (11.0-15.0) % Plt Count (150-400) K/uL MPV (7.40-12.00) fL Neut % (Auto) (48.0-80.0) % Lymph % (Auto) (16.0-40.0) % [place] % (Auto) (0.0-15.0) % Eos % (Auto) (0.0-7.0) % Baso % (Auto) (0.0-1.5) % Neut # (Auto) (1.4-5.7) K/uL Lymph # (Auto) (0.6-2.4) K/uL [place] # (Auto) (0.0-0.8) K/uL Eos # (Auto) (0.0-0.7) K/uL Baso # (Auto) (0.0-0.1) K/uL Nucleated RBC % /100WBC Nucleated RBCs # K/uL INR 1.19 Sodium (136-148) mmol/L Potassium (3.5-5.1) mmol/L Chloride (98-107) mmol/L Carbon Dioxide (21.0-32.0) mmol/L BUN (7.0-18.0) mg/dL Creatinine (0.8-1.3) mg/dL Est Cr Clr Drug Dosing mL/min Estimated GFR (MDRD) ml/min Glucose (74-106) mg/dL Lactic Acid 1.2 (0.4-2.0) mmol/L Calcium (8.5-10.1) mg/dL Magnesium (1.8-2.4) mg/dL Total Bilirubin (0.2-1.0) mg/dL AST (15-37) IU/L Urine Color YELLOW Urine Appearance SLT CLOUDY Urine pH 5.5 (5.0-8.0) Ur Specific [place] 1.025 (1.001-1.035) Urine Protein TRACE H (NEGATIVE) mg/dL Urine Glucose (UA) NEGATIVE (NEGATIVE) mg/dL Urine Ketones TRACE H (NEGATIVE) mg/dL Urine Occult Blood MODERATE H (NEGATIVE) Urine Nitrite POSITIVE H (NEGATIVE) Urine Bilirubin NEGATIVE (NEGATIVE) Urine Urobilinogen 0.2 (<2.0) EU/dL Ur Leukocyte Esterase SMALL H (NEGATIVE) Urine RBC 0-3 (0-2/HPF) Urine WBC 20-30 (0-5/HPF) Ur Epithelial Cells RARE (NONE-FEW) Urine Bacteria 1+ H (NEGATIVE) Result Diagrams: 07/31/21 10:30 07/31/21 10:30 Sepsis Event Note - Evaluation Sepsis Screening Result: No Definite Risk Current Stage of Sepsis: Sepsis Possible Source of Sepsis: Genitourinary - Focused Exam Sepsis Event Note Statement: Focused Sepsis Exam Completed Vital Signs: Vital Signs Temp Temp Pulse Resp BP Pulse Ox 07/31/21 14:36 101.3 F H 07/31/21 11:22 98.4 F 90 22 H 146/78 H 91 L Respiratory Effort Without Exertion: Labored Capillary Refill, Detail: Less than/Equal to (</=) 2 Seconds Pulse Description: 2+ Normal Peripheral Pulse Location: Radial Skin Exam (Focused Sepsis): Normal Turgor Date Exam was Performed: 07/31/21 Time Exam was Performed: 14:45 - Problem List (1) UTI (urinary tract infection) SNOMED Code(s): 53078000 ICD Code: N39.0 - URINARY TRACT INFECTION, SITE NOT SPECIFIED Status: Acute Current Visit: No Qualifiers: Urinary tract infection type: acute cystitis (2) CAD (coronary artery disease) SNOMED Code(s): 16796423 ICD Code: I25.10 - ATHSCL HEART DISEASE OF [place] CORONARY ARTERY W/O ANG PCTRS Status: Chronic Current Visit: Yes Qualifiers: Coronary Disease-Associated Artery/Lesion type: [place] artery [place] vs. transplanted heart: [place] heart Associated angina: without angina Qualified Code(s): I25.10 - Atherosclerotic heart disease of [place] coronary artery without angina pectoris (3) MEAGAN on CPAP SNOMED Code(s): 64906172 ICD Code: G47.33 - OBSTRUCTIVE SLEEP APNEA (ADULT) (PEDIATRIC); Z99.89 - DEPENDENCE ON OTHER ENABLING MACHINES AND DEVICES Status: Chronic Current Visit: Yes (4) Obesity (BMI 35.0-39.9 without comorbidity) SNOMED Code(s): 922746482, 801928964 ICD Code: E66.9 - OBESITY, UNSPECIFIED Status: Chronic Current Visit: Yes (5) H/O acute myocardial infarction SNOMED Code(s): 674973500 ICD Code: I25.2 - OLD MYOCARDIAL INFARCTION Status: Chronic Priority: Low Current Visit: No (6) Rheumatoid arthritis SNOMED Code(s): 54989865 ICD Code: M06.9 - RHEUMATOID ARTHRITIS, UNSPECIFIED Status: Chronic Priority: Low Current Visit: No Qualifiers: Rheumatoid arthritis location: unspecified site Rheumatoid factor presence: unspecified presence Qualified Code(s): M06.9 - Rheumatoid arthritis, unspecified (7) HTN (hypertension) SNOMED Code(s): 47434970 ICD Code: I10 - ESSENTIAL (PRIMARY) HYPERTENSION Status: Chronic Priority: Low Current Visit: No Qualifiers: Hypertension type: essential hypertension (8) COPD (chronic obstructive pulmonary disease) SNOMED Code(s): 40847112 ICD Code: J44.9 - CHRONIC OBSTRUCTIVE PULMONARY DISEASE, UNSPECIFIED Status: Chronic Current Visit: Yes (9) CHF (congestive heart failure) SNOMED Code(s): 47428455 ICD Code: I50.9 - HEART FAILURE, UNSPECIFIED Status: Chronic Current Visit: Yes Qualifiers: Heart failure type: combined systolic and diastolic Heart failure chronicity: chronic Qualified Code(s): I50.42 - Chronic combined systolic (congestive) and diastolic (congestive) heart failure Problem List Initiated/Reviewed/Updated: Yes Orders Last 24hrs: Active Orders 24 hr Category Date Time Status Admission Status [Patient Status] [ADT] Stat ADT 07/31/21 14:07 Active Abdomen Pelvis wo Cont [CT] Stat Exams 07/31/21 14:53 Ordered CORONAVIRUS COVID-19 MANAS [MOLEC] Stat Lab 07/31/21 14:03 Received CULTURE BLOOD [BC] Stat Lab 07/31/21 12:06 Received CULTURE BLOOD [BC] Stat Lab 07/31/21 12:09 Received CULTURE URINE [MREF] Stat Lab 07/31/21 12:00 Received Lactated Ringers [Ringers, Lactated] 1,000 ml Med 07/31/21 14:00 Active IV ASDIRECTED Blood Culture x2 Reflex Set [OM.PC] Stat Oth 07/31/21 11:56 Ordered Medication Orders Lactated Ringer's (Ringers, Lactated) 1,000 mls @ 150 mls/hr IV ASDIRECTED SERGIO Last Admin: 07/31/21 14:01 Dose: 150 mls/hr Documented by: STACY Assessment/Plan Comment:: This 71-year-old male admitted with acute complicated UTI 1. Sepsis/acute complicated UTI -Focused sepsis exam completed -Continue Rocephin IV daily -Blood cultures and urine cultures pending -We will give 1 more liter of IV fluids, monitor closely due to CHF -Obtain CT abdomen pelvis to rule out pyelonephritis, prostatitis and rule out obstruction -Reviewed records from [facility] after hip surgery regarding urinary retention 2. COPD, MEAGAN CPAP -Continue home inhalers will bring these in - to bring in CPAP -Denies home oxygen use 3. CHF, HTN, CAD, HLD -Continue home medications - Monitor daily weights - Strict I/O, Low Na diet VTE prophylaxis: Heparin CODE STATUS: DNR/DNI per patient Dispo: 2 to 3 days pending improvement.
[2021-07-31] MEDS ORDERED: Sodium Chloride 0.9% 2.5 ML Syringe FLUSH PRN (15:35)
[2021-07-31] MEDS ORDERED: Albuterol/Ipratropium 3.0-0.5 MG/3 ML Neb Soln NEB PRN (16:00)
[2021-07-31] MEDS ORDERED: Ondansetron 4 MG/2 ML SDV IVPUSH PRN (16:00)
[2021-07-31] MEDS ORDERED: Heparin Sodium 5,000 Units/ML Vial SUBCUT SCH (16:00)
--- NOTE | 2021-07-31 17:24 | CT ---
INDICATION: Pain. COMPARISON: CT of the abdomen and pelvis from 09/05/2015. TECHNIQUE: CT examination of the abdomen and pelvis was performed without contrast enhancement using 3 mm thick axial sections from the lung bases through the pubic symphysis. Oral contrast was not administered. Please note that all CT scans at this facility use dose modulation, iterative reconstruction, and/or weight-based dosing when appropriate to reduce radiation dose to as low as reasonably achievable. FINDINGS: The previously seen small bowel obstruction is no longer present. In the abdomen, the unenhanced liver, spleen, pancreas, and adrenals are normal in appearance. The unenhanced kidneys are normal in appearance. There is stable mild cholelithiasis, with a few small dependent calcified calculi in the gallbladder. There is no sign of gallbladder wall thickening or pericholecystic fluid. The abdominal aorta is normal in caliber with no sign of dilatation. There is no sign of retroperitoneal mass or adenopathy. The stomach, loops of small bowel, and colon in the abdomen are normal in appearance. There is a small fat containing periumbilical hernia, increased in size compared to the previous study. In the pelvis, the appendix is normal in appearance with no sign of inflammatory process. There is new mild sigmoid diverticulosis without evidence of diverticulitis. The loops of small bowel and colon in the pelvis are otherwise normal in appearance. The prostate is mildly enlarged and is otherwise normal in appearance. The urinary bladder is normal in appearance. There is no sign of pelvic or inguinal mass or adenopathy. There is no sign of free air or free fluid in the abdomen or pelvis. There is new mild patchy density in the posterior right lung base which is probably atelectasis. The components of new bilateral total hip prostheses are in anatomic alignment with no sign of fracture, loosening, or dislocation. There is no sign of fracture of the [place] osseous structures. There is minimal anterior subluxation of L5 on S1 with moderate L5-S1 disc degenerative disease, unchanged from the previous study. IMPRESSION: Nothing seen to explain the patient`s abdominal pain. Resolution of previously seen small bowel obstruction with no sign of recurrent small bowel obstruction or inflammatory process of the bowel. CT of the abdomen show stable mild cholelithiasis with no sign of acute cholecystitis. CT of the pelvis shows new mild sigmoid diverticulosis with no sign of diverticulitis. Increase in size of small fat containing periumbilical hernia. Stable mild enlargement of the prostate. Please note that all CT scans at this facility use dose modulation, iterative reconstruction, and/or weight-based dosing when appropriate to reduce radiation dose to as low as reasonably achievable. Dictated by Ben Ford MD @ 07/31/2021 5:22:00 PM (Electronically Signed)
[2021-07-31] MEDS ORDERED: Docusate Sodium 100 MG Cap PO PRN (21:00)
[2021-07-31] MEDS: Heparin Sodium 5,000 Units/ML Vial SUBCUT SCH (21:12)
[2021-08-01 06:29] LABS: CARBON DIOXIDE,CO2 23.7 mmol/L (21.0-32.0); POTASSIUM,K 3.4 mmol/L (3.5-5.1)
[2021-08-01] MEDS ORDERED: Magnesium Sulfate/Water 4 GM in Premix Bag 1 BAG IV ONE (08:15)
[2021-08-01] MEDS ORDERED: Potassium Chloride 20 MEQ Tab.ER PO ONE (08:15)
[2021-08-01] MEDS: Acetaminophen 325 MG Tab PO PRN (08:51)
[2021-08-01] MEDS: Heparin Sodium 5,000 Units/ML Vial SUBCUT SCH ×2 (09:20→21:12)
--- NOTE | 2021-08-01 10:28 | PCM.PN ---
- General Info Date of Service: 08/01/21 Admission Dx/Problem (Free Text): Admission Diagnosis/Problem Admission Diagnosis/Problem UTI, Urinary tract infectious disease Subjective Update: Patient reports he is doing well. Denies any chest pain or shortness of breath. Nursing reports hypoxia with sleep. Patient very adamant that he was not hypoxic and that the nurses watching his saturations wrong and that he checks this at night and is usually fine. We did try to discuss that when he is actually sleeping saturations are different from when he is awake or just waking up. Continued to not want oxygen with CPAP. Functional Status: Reports: Pain Controlled, Tolerating Diet, Ambulating, Urinating - Review of Systems General: Reports: Fever Pulmonary: Reports: No Symptoms. Denies: Shortness of Breath, Cough Cardiovascular: Reports: No Symptoms. Denies: Chest Pain, Orthopnea, Lightheadedness Gastrointestinal: Reports: Diarrhea (Had a couple events overnight we will monitor closely). Denies: Abdominal Pain, Nausea, Vomiting Genitourinary: Reports: Dysuria, Frequency, Burning, Urgency (Continuing to improve) Skin: Reports: No Symptoms Neurological: Reports: No Symptoms Psychiatric: Reports: No Symptoms - Patient Data Vitals - Most Recent: Last Vital Signs Temp 101.5 F H 08/01/21 08:51 Pulse 88 08/01/21 07:45 Resp 20 08/01/21 07:45 BP 124/65 08/01/21 07:45 Pulse Ox 93 L 08/01/21 07:45 Weight - Most Recent: 130.544 kg I&O - Last 24 Hours: Intake & Output 07/31/21 08/01/21 08/01/21 22:59 06:59 14:59 Intake Total 1020 Output Total 0 Balance 1020 Lab Results Last 24 Hours: Laboratory Results - last 24 hr 07/31/21 07/31/21 07/31/21 Range/Units 10:30 10:30 10:30 WBC 22.41 H (4.0-11.0) K/uL RBC 5.24 (4.50-5.90) M/uL Hgb 15.2 (13.0-17.0) g/dL Hct 46.1 (38.0-50.0) % MCV 88.0 (80.0-98.0) fL MCH 29.0 (27.0-32.0) pg MCHC 33.0 (31.0-37.0) g/dL RDW Std Deviation 45.9 (28.0-62.0) fl RDW Coeff of Bailee 14 (11.0-15.0) % Plt Count 117 L (150-400) K/uL MPV 11.90 (7.40-12.00) fL Neut % (Auto) 88.6 H (48.0-80.0) % Lymph % (Auto) 5.0 L (16.0-40.0) % [place] % (Auto) 6.2 (0.0-15.0) % Eos % (Auto) 0.1 (0.0-7.0) % Baso % (Auto) 0.1 (0.0-1.5) % Neut # (Auto) 19.8 H (1.4-5.7) K/uL Lymph # (Auto) 1.1 (0.6-2.4) K/uL [place] # (Auto) 1.4 H (0.0-0.8) K/uL Eos # (Auto) 0.0 (0.0-0.7) K/uL Baso # (Auto) 0.0 (0.0-0.1) K/uL Nucleated RBC % 0.0 /100WBC Nucleated RBCs # 0 K/uL INR Sodium 138 (136-148) mmol/L Potassium 4.0 (3.5-5.1) mmol/L Chloride 101 (98-107) mmol/L Carbon Dioxide 25.1 (21.0-32.0) mmol/L BUN 14 (7.0-18.0) mg/dL Creatinine 1.4 H (0.8-1.3) mg/dL Est Cr Clr Drug Dosing 51.58 mL/min Estimated GFR (MDRD) 49.7 ml/min Glucose 132 H (74-106) mg/dL Lactic Acid (0.4-2.0) mmol/L Calcium 9.1 (8.5-10.1) mg/dL Magnesium 1.3 L (1.8-2.4) mg/dL Total Bilirubin 1.2 H (0.2-1.0) mg/dL AST 19 (15-37) IU/L Urine Color Urine Appearance Urine pH (5.0-8.0) Ur Specific [place] (1.001-1.035) Urine Protein (NEGATIVE) mg/dL Urine Glucose (UA) (NEGATIVE) mg/dL Urine Ketones (NEGATIVE) mg/dL Urine Occult Blood (NEGATIVE) Urine Nitrite (NEGATIVE) Urine Bilirubin (NEGATIVE) Urine Urobilinogen (<2.0) EU/dL Ur Leukocyte Esterase (NEGATIVE) Urine RBC (0-2/HPF) Urine WBC (0-5/HPF) Ur Epithelial Cells (NONE-FEW) Urine Bacteria (NEGATIVE) SARS-CoV-2 RNA (MANAS) (NEGATIVE) 07/31/21 07/31/21 07/31/21 Range/Units 12:00 12:09 12:09 WBC (4.0-11.0) K/uL RBC (4.50-5.90) M/uL Hgb (13.0-17.0) g/dL Hct (38.0-50.0) % MCV (80.0-98.0) fL MCH (27.0-32.0) pg MCHC (31.0-37.0) g/dL RDW Std Deviation (28.0-62.0) fl RDW Coeff of [place] (11.0-15.0) % Plt Count (150-400) K/uL MPV (7.40-12.00) fL Neut % (Auto) (48.0-80.0) % Lymph % (Auto) (16.0-40.0) % [place] % (Auto) (0.0-15.0) % Eos % (Auto) (0.0-7.0) % Baso % (Auto) (0.0-1.5) % Neut # (Auto) (1.4-5.7) K/uL Lymph # (Auto) (0.6-2.4) K/uL [place] # (Auto) (0.0-0.8) K/uL Eos # (Auto) (0.0-0.7) K/uL Baso # (Auto) (0.0-0.1) K/uL Nucleated RBC % /100WBC Nucleated RBCs # K/uL INR 1.19 Sodium (136-148) mmol/L Potassium (3.5-5.1) mmol/L Chloride (98-107) mmol/L Carbon Dioxide (21.0-32.0) mmol/L BUN (7.0-18.0) mg/dL Creatinine (0.8-1.3) mg/dL Est Cr Clr Drug Dosing mL/min Estimated GFR (MDRD) ml/min Glucose (74-106) mg/dL Lactic Acid 1.2 (0.4-2.0) mmol/L Calcium (8.5-10.1) mg/dL Magnesium (1.8-2.4) mg/dL Total Bilirubin (0.2-1.0) mg/dL AST (15-37) IU/L Urine Color YELLOW Urine Appearance SLT CLOUDY Urine pH 5.5 (5.0-8.0) Ur Specific [place] 1.025 (1.001-1.035) Urine Protein TRACE H (NEGATIVE) mg/dL Urine Glucose (UA) NEGATIVE (NEGATIVE) mg/dL Urine Ketones TRACE H (NEGATIVE) mg/dL Urine Occult Blood MODERATE H (NEGATIVE) Urine Nitrite POSITIVE H (NEGATIVE) Urine Bilirubin NEGATIVE (NEGATIVE) Urine Urobilinogen 0.2 (<2.0) EU/dL Ur Leukocyte Esterase SMALL H (NEGATIVE) Urine RBC 0-3 (0-2/HPF) Urine WBC 20-30 (0-5/HPF) Ur Epithelial Cells RARE (NONE-FEW) Urine Bacteria 1+ H (NEGATIVE) SARS-CoV-2 RNA (MANAS) (NEGATIVE) 07/31/21 08/01/21 08/01/21 Range/Units 14:03 05:05 05:05 WBC 22.25 H (4.0-11.0) K/uL RBC 4.76 (4.50-5.90) M/uL Hgb 14.3 (13.0-17.0) g/dL Hct 42.0 (38.0-50.0) % MCV 88.2 (80.0-98.0) fL MCH 30.0 (27.0-32.0) pg MCHC 34.0 (31.0-37.0) g/dL RDW Std Deviation 46.9 (28.0-62.0) fl RDW Coeff of [place] 14 (11.0-15.0) % Plt Count 99 L (150-400) K/uL MPV 11.30 (7.40-12.00) fL Neut % (Auto) 88.7 H (48.0-80.0) % Lymph % (Auto) 5.0 L (16.0-40.0) % [place] % (Auto) 6.2 (0.0-15.0) % Eos % (Auto) 0.0 (0.0-7.0) % Baso % (Auto) 0.1 (0.0-1.5) % Neut # (Auto) 19.7 H (1.4-5.7) K/uL Lymph # (Auto) 1.1 (0.6-2.4) K/uL [place] # (Auto) 1.4 H (0.0-0.8) K/uL Eos # (Auto) 0.0 (0.0-0.7) K/uL Baso # (Auto) 0.0 (0.0-0.1) K/uL Nucleated RBC % 0.0 /100WBC Nucleated RBCs # 0 K/uL INR Sodium 136 (136-148) mmol/L Potassium 3.4 L (3.5-5.1) mmol/L Chloride 101 (98-107) mmol/L Carbon Dioxide 23.7 (21.0-32.0) mmol/L BUN 16 (7.0-18.0) mg/dL Creatinine 1.5 H (0.8-1.3) mg/dL Est Cr Clr Drug Dosing 48.14 mL/min Estimated GFR (MDRD) 45.9 ml/min Glucose 138 H (74-106) mg/dL Lactic Acid (0.4-2.0) mmol/L Calcium 8.1 L (8.5-10.1) mg/dL Magnesium 1.3 L (1.8-2.4) mg/dL Total Bilirubin (0.2-1.0) mg/dL AST (15-37) IU/L Urine Color Urine Appearance Urine pH (5.0-8.0) Ur Specific [place] (1.001-1.035) Urine Protein (NEGATIVE) mg/dL Urine Glucose (UA) (NEGATIVE) mg/dL Urine Ketones (NEGATIVE) mg/dL Urine Occult Blood (NEGATIVE) Urine Nitrite (NEGATIVE) Urine Bilirubin (NEGATIVE) Urine Urobilinogen (<2.0) EU/dL Ur Leukocyte Esterase (NEGATIVE) Urine RBC (0-2/HPF) Urine WBC (0-5/HPF) Ur Epithelial Cells (NONE-FEW) Urine Bacteria (NEGATIVE) SARS-CoV-2 RNA (MANAS) NEGATIVE (NEGATIVE) Med Orders - Current: Current Medications Acetaminophen (Acetaminophen 325 Mg Tab) 650 mg PO Q4H PRN PRN Reason: Pain/Fever Last Admin: 08/01/21 08:51 Dose: 650 mg Documented by: Albuterol/Ipratropium (Albuterol/Ipratropium 3.0-0.5 Mg/3 Ml Neb Soln) 3 ml NEB Q4HRRT PRN PRN Reason: Shortness Of Breath/wheezing Docusate Sodium (Docusate Sodium 100 Mg Cap) 100 mg PO BID PRN PRN Reason: Constipation Heparin Sodium (Porcine) (Heparin Sodium 5,000 Units/Ml Vial) 5,000 units SUBCUT Q12HR [facility] Last Admin: 08/01/21 09:20 Dose: Not Given Documented by: Ceftriaxone Sodium/Dextrose 1 (gm/ Premix) 50 mls @ 100 mls/hr IV Q24H [facility] Ondansetron HCl (Ondansetron 4 Mg/2 Ml Sdv) 4 mg IVPUSH Q4H PRN PRN Reason: Nausea Sodium Chloride (Sodium Chloride 0.9% 2.5 Ml Syringe) 2.5 ml FLUSH ASDIRECTED PRN PRN Reason: Keep Vein Open Discontinued Medications Acetaminophen (Acetaminophen 500 Mg Tab) 1,000 mg PO ONETIME ONE Stop: 07/31/21 14:32 Last Admin: 07/31/21 14:36 Dose: 1,000 mg Documented by: Lactated Ringer's (Ringers, Lactated) 1,000 mls @ 999 mls/hr IV .BOLUS ONE Stop: 07/31/21 12:56 Last Admin: 07/31/21 12:26 Dose: 999 mls/hr Documented by: Ceftriaxone Sodium/Dextrose 2 (gm/ Premix) 50 mls @ 100 mls/hr IV ONETIME ONE Stop: 07/31/21 12:40 Last Admin: 07/31/21 12:26 Dose: 100 mls/hr Documented by: Lactated Ringer's (Ringers, Lactated) 1,000 mls @ 150 mls/hr IV ASDIRECTED SERGIO Last Admin: 07/31/21 14:01 Dose: 150 mls/hr Documented by: Lactated Ringer's (Ringers, Lactated) 1,000 mls @ 150 mls/hr IV ONETIME ONE Stop: 07/31/21 22:24 Last Admin: 07/31/21 16:32 Dose: Not Given Documented by: Magnesium Sulfate 4 gm/ Premix 100 mls @ 50 mls/hr IV ONETIME ONE Stop: 08/01/21 10:14 Last Admin: 08/01/21 08:51 Dose: 50 mls/hr Documented by: Magnesium Oxide (Magnesium Oxide 400 Mg Tab) 800 mg PO ONETIME ONE Stop: 07/31/21 13:25 Last Admin: 07/31/21 13:42 Dose: 800 mg Documented by: Potassium Chloride (Potassium Chloride 20 Meq Tab.Er) 40 meq PO ONETIME ONE Stop: 08/01/21 08:16 Last Admin: 08/01/21 08:51 Dose: 40 meq Documented by: - Exam Quality Assessment: Supplemental Oxygen (1 to 2 L), DVT Prophylaxis (Patient refusing heparin encourage SCD use). No: Urine Catheter General: Alert, Oriented, Cooperative, No Acute Distress Lungs: Normal Respiratory Effort, Decreased Breath Sounds, Wheezing (Scant wheezing) Cardiovascular: Regular Rate, Regular Rhythm GI/Abdominal Exam: Normal Bowel Sounds, Soft Extremities: Normal Inspection, Normal Range of Motion, Non-Tender, No Pedal Edema Neurological: No New Focal Deficit Psy/Mental Status: Alert, Normal Affect, Normal Mood - Patient Data Lab Results Last 24 hrs: Laboratory Results - last 24 hr 07/31/21 07/31/21 07/31/21 Range/Units 10:30 10:30 10:30 WBC 22.41 H (4.0-11.0) K/uL RBC 5.24 (4.50-5.90) M/uL Hgb 15.2 (13.0-17.0) g/dL Hct 46.1 (38.0-50.0) % MCV 88.0 (80.0-98.0) fL MCH 29.0 (27.0-32.0) pg MCHC 33.0 (31.0-37.0) g/dL RDW Std Deviation 45.9 (28.0-62.0) fl RDW Coeff of [place]ilee 14 (11.0-15.0) % Plt Count 117 L (150-400) K/uL MPV 11.90 (7.40-12.00) fL Neut % (Auto) 88.6 H (48.0-80.0) % Lymph % (Auto) 5.0 L (16.0-40.0) % [place] % (Auto) 6.2 (0.0-15.0) % Eos % (Auto) 0.1 (0.0-7.0) % Baso % (Auto) 0.1 (0.0-1.5) % Neut # (Auto) 19.8 H (1.4-5.7) K/uL Lymph # (Auto) 1.1 (0.6-2.4) K/uL [place] # (Auto) 1.4 H (0.0-0.8) K/uL Eos # (Auto) 0.0 (0.0-0.7) K/uL Baso # (Auto) 0.0 (0.0-0.1) K/uL Nucleated RBC % 0.0 /100WBC Nucleated RBCs # 0 K/uL INR Sodium 138 (136-148) mmol/L Potassium 4.0 (3.5-5.1) mmol/L Chloride 101 (98-107) mmol/L Carbon Dioxide 25.1 (21.0-32.0) mmol/L BUN 14 (7.0-18.0) mg/dL Creatinine 1.4 H (0.8-1.3) mg/dL Est Cr Clr Drug Dosing 51.58 mL/min Estimated GFR (MDRD) 49.7 ml/min Glucose 132 H (74-106) mg/dL Lactic Acid (0.4-2.0) mmol/L Calcium 9.1 (8.5-10.1) mg/dL Magnesium 1.3 L (1.8-2.4) mg/dL Total Bilirubin 1.2 H (0.2-1.0) mg/dL AST 19 (15-37) IU/L Urine Color Urine Appearance Urine pH (5.0-8.0) Ur Specific [place] (1.001-1.035) Urine Protein (NEGATIVE) mg/dL Urine Glucose (UA) (NEGATIVE) mg/dL Urine Ketones (NEGATIVE) mg/dL Urine Occult Blood (NEGATIVE) Urine Nitrite (NEGATIVE) Urine Bilirubin (NEGATIVE) Urine Urobilinogen (<2.0) EU/dL Ur Leukocyte Esterase (NEGATIVE) Urine RBC (0-2/HPF) Urine WBC (0-5/HPF) Ur Epithelial Cells (NONE-FEW) Urine Bacteria (NEGATIVE) SARS-CoV-2 RNA (MANAS) (NEGATIVE) 07/31/21 07/31/21 07/31/21 Range/Units 12:00 12:09 12:09 WBC (4.0-11.0) K/uL RBC (4.50-5.90) M/uL Hgb (13.0-17.0) g/dL Hct (38.0-50.0) % MCV (80.0-98.0) fL MCH (27.0-32.0) pg MCHC (31.0-37.0) g/dL RDW Std Deviation (28.0-62.0) fl RDW Coeff of [place] (11.0-15.0) % Plt Count (150-400) K/uL MPV (7.40-12.00) fL Neut % (Auto) (48.0-80.0) % Lymph % (Auto) (16.0-40.0) % [place] % (Auto) (0.0-15.0) % Eos % (Auto) (0.0-7.0) % Baso % (Auto) (0.0-1.5) % Neut # (Auto) (1.4-5.7) K/uL Lymph # (Auto) (0.6-2.4) K/uL [place] # (Auto) (0.0-0.8) K/uL Eos # (Auto) (0.0-0.7) K/uL Baso # (Auto) (0.0-0.1) K/uL Nucleated RBC % /100WBC Nucleated RBCs # K/uL INR 1.19 Sodium (136-148) mmol/L Potassium (3.5-5.1) mmol/L Chloride (98-107) mmol/L Carbon Dioxide (21.0-32.0) mmol/L BUN (7.0-18.0) mg/dL Creatinine (0.8-1.3) mg/dL Est Cr Clr Drug Dosing mL/min Estimated GFR (MDRD) ml/min Glucose (74-106) mg/dL Lactic Acid 1.2 (0.4-2.0) mmol/L Calcium (8.5-10.1) mg/dL Magnesium (1.8-2.4) mg/dL Total Bilirubin (0.2-1.0) mg/dL AST (15-37) IU/L Urine Color YELLOW Urine Appearance SLT CLOUDY Urine pH 5.5 (5.0-8.0) Ur Specific [place] 1.025 (1.001-1.035) Urine Protein TRACE H (NEGATIVE) mg/dL Urine Glucose (UA) NEGATIVE (NEGATIVE) mg/dL Urine Ketones TRACE H (NEGATIVE) mg/dL Urine Occult Blood MODERATE H (NEGATIVE) Urine Nitrite POSITIVE H (NEGATIVE) Urine Bilirubin NEGATIVE (NEGATIVE) Urine Urobilinogen 0.2 (<2.0) EU/dL Ur Leukocyte Esterase SMALL H (NEGATIVE) Urine RBC 0-3 (0-2/HPF) Urine WBC 20-30 (0-5/HPF) Ur Epithelial Cells RARE (NONE-FEW) Urine Bacteria 1+ H (NEGATIVE) SARS-CoV-2 RNA (MANAS) (NEGATIVE) 07/31/21 08/01/21 08/01/21 Range/Units 14:03 05:05 05:05 WBC 22.25 H (4.0-11.0) K/uL RBC 4.76 (4.50-5.90) M/uL Hgb 14.3 (13.0-17.0) g/dL Hct 42.0 (38.0-50.0) % MCV 88.2 (80.0-98.0) fL MCH 30.0 (27.0-32.0) pg MCHC 34.0 (31.0-37.0) g/dL RDW Std Deviation 46.9 (28.0-62.0) fl RDW Coeff of [place] 14 (11.0-15.0) % Plt Count 99 L (150-400) K/uL MPV 11.30 (7.40-12.00) fL Neut % (Auto) 88.7 H (48.0-80.0) % Lymph % (Auto) 5.0 L (16.0-40.0) % [place] % (Auto) 6.2 (0.0-15.0) % Eos % (Auto) 0.0 (0.0-7.0) % Baso % (Auto) 0.1 (0.0-1.5) % Neut # (Auto) 19.7 H (1.4-5.7) K/uL Lymph # (Auto) 1.1 (0.6-2.4) K/uL [place] # (Auto) 1.4 H (0.0-0.8) K/uL Eos # (Auto) 0.0 (0.0-0.7) K/uL Baso # (Auto) 0.0 (0.0-0.1) K/uL Nucleated RBC % 0.0 /100WBC Nucleated RBCs # 0 K/uL INR Sodium 136 (136-148) mmol/L Potassium 3.4 L (3.5-5.1) mmol/L Chloride 101 (98-107) mmol/L Carbon Dioxide 23.7 (21.0-32.0) mmol/L BUN 16 (7.0-18.0) mg/dL Creatinine 1.5 H (0.8-1.3) mg/dL Est Cr Clr Drug Dosing 48.14 mL/min Estimated GFR (MDRD) 45.9 ml/min Glucose 138 H (74-106) mg/dL Lactic Acid (0.4-2.0) mmol/L Calcium 8.1 L (8.5-10.1) mg/dL Magnesium 1.3 L (1.8-2.4) mg/dL Total Bilirubin (0.2-1.0) mg/dL AST (15-37) IU/L Urine Color Urine Appearance Urine pH (5.0-8.0) Ur Specific [place] (1.001-1.035) Urine Protein (NEGATIVE) mg/dL Urine Glucose (UA) (NEGATIVE) mg/dL Urine Ketones (NEGATIVE) mg/dL Urine Occult Blood (NEGATIVE) Urine Nitrite (NEGATIVE) Urine Bilirubin (NEGATIVE) Urine Urobilinogen (<2.0) EU/dL Ur Leukocyte Esterase (NEGATIVE) Urine RBC (0-2/HPF) Urine WBC (0-5/HPF) Ur Epithelial Cells (NONE-FEW) Urine Bacteria (NEGATIVE) SARS-CoV-2 RNA (MANAS) NEGATIVE (NEGATIVE) Result Diagrams: 08/01/21 05:05 08/01/21 05:05 Sepsis Event Note - Evaluation Sepsis Screening Result: No Definite Risk - Focused Exam Vital Signs: Vital Signs Temp Temp Pulse Resp BP Pulse Ox Pulse Ox 08/01/21 08:51 101.5 F H 08/01/21 07:45 101.5 F H 88 20 124/65 93 L 08/01/21 04:00 99.5 F 101 H 22 H 136/68 91 L 08/01/21 00:40 92 L 08/01/21 00:26 92 L 08/01/21 00:00 99.1 F 95 22 H 118/57 L 85 L - Problem List & Annotations (1) UTI (urinary tract infection) SNOMED Code(s): 62799664 Code(s): N39.0 - URINARY TRACT INFECTION, SITE NOT SPECIFIED Status: Acute Current Visit: No Qualifiers: Urinary tract infection type: acute cystitis (2) CAD (coronary artery disease) SNOMED Code(s): 57106363 Code(s): I25.10 - ATHSCL HEART DISEASE OF [place] CORONARY ARTERY W/O ANG PCTRS Status: Chronic Current Visit: Yes Qualifiers: Coronary Disease-Associated Artery/Lesion type: [place] artery [place] vs. transplanted heart: [place] heart Associated angina: without angina Qualified Code(s): I25.10 - Atherosclerotic heart disease of [place] coronary artery without angina pectoris (3) MEAGAN on CPAP SNOMED Code(s): 47095178 Code(s): G47.33 - OBSTRUCTIVE SLEEP [place] (ADULT) (PEDIATRIC); Z99.89 - DEPENDENCE ON OTHER ENABLING MACHINES AND DEVICES Status: Chronic Current Visit: Yes (4) Obesity (BMI 35.0-39.9 without comorbidity) SNOMED Code(s): 015501334, 670771399 Code(s): E66.9 - OBESITY, UNSPECIFIED Status: Chronic Current Visit: Yes (5) H/O acute myocardial infarction SNOMED Code(s): 279353223 Code(s): I25.2 - OLD MYOCARDIAL INFARCTION Status: Chronic Priority: Low Current Visit: No (6) Rheumatoid arthritis SNOMED Code(s): 89295723 Code(s): M06.9 - RHEUMATOID ARTHRITIS, UNSPECIFIED Status: Chronic Priority: Low Current Visit: No Qualifiers: Rheumatoid arthritis location: unspecified site Rheumatoid factor presence: unspecified presence Qualified Code(s): M06.9 - Rheumatoid arthritis, unspecified (7) HTN (hypertension) SNOMED Code(s): 34063818 Code(s): I10 - ESSENTIAL (PRIMARY) HYPERTENSION Status: Chronic Priority: Low Current Visit: No Qualifiers: Hypertension type: essential hypertension (8) COPD (chronic obstructive pulmonary disease) SNOMED Code(s): 48689095 Code(s): J44.9 - CHRONIC OBSTRUCTIVE PULMONARY DISEASE, UNSPECIFIED Status: Chronic Current Visit: Yes (9) CHF (congestive heart failure) SNOMED Code(s): 29121447 Code(s): I50.9 - HEART FAILURE, UNSPECIFIED Status: Chronic Current Visit: Yes Qualifiers: Heart failure type: combined systolic and diastolic Heart failure chronicity: chronic Qualified Code(s): I50.42 - Chronic combined systolic (congestive) and diastolic (congestive) heart failure - Problem List Review Problem List Initiated/Reviewed/Updated: Yes - My Orders Last 24 Hours: My Active Orders 07/31/21 15:35 Height and Weight [RC] DAILY Intake and Output Strict [RC] Q12H Oxygen Therapy [RC] PRN Up With Assistance [RC] ASDIRECTED VTE/DVT Education [RC] PER UNIT ROUTINE Vital Signs [RC] Q4H Sodium Chloride 0.9% [Saline Flush] 2.5 ml FLUSH ASDIRECTED PRN Saline Lock Insert [OM.PC] Routine Resuscitation Status Routine 07/31/21 15:37 RT Aerosol Therapy [RC] ASDIRECTED 07/31/21 15:39 Telemetry Monitoring [Cardiac Monitoring] [RC] Q8H 07/31/21 Dinner 2 Gram Sodium Diet [DIET] Acetaminophen [TylenoL] 650 mg PO Q4H PRN Albuterol/Ipratropium [DuoNeb 3.0-0.5 MG/3 ML] 3 ml NEB Q4HRRT PRN Ondansetron [Zofran] 4 mg IVPUSH Q4H PRN 07/31/21 21:00 Docusate Sodium [Colace] 100 mg PO BID PRN Heparin Sodium 5,000 units SUBCUT Q12HR 08/01/21 12:00 [email or web address] [Rocephin in Dextrose,Iso-Osm 1 GM/50 ML] 1 gm Premix Bag 1 bag IV Q24H 08/02/21 05:11 BMP [BASIC METABOLIC PANEL,BMP] [CHEM] AM CBC WITH AUTO DIFF [HEME] AM MAGNESIUM [CHEM] AM 08/03/21 05:11 BMP [BASIC METABOLIC PANEL,BMP] [CHEM] AM CBC WITH AUTO DIFF [HEME] AM MAGNESIUM [CHEM] AM - Plan Plan:: This 71-year-old male admitted with acute complicated UTI 1. Sepsis/acute complicated UTI -Sepsis resolved -Leukocytosis remains the same has been approximately 12 hours since administration of IV antibiotics we will continue to monitor if no change tomorrow may consider therapy failure and change antibiotic therapy -Continue Rocephin IV daily -Blood cultures and urine cultures pending -Obtain CT abdomen pelvis rule out obstruction does show mildly enlarged prostate similar to previous exams. -Reviewed records from [facility] after hip surgery regarding urinary retention 2. COPD, MEAGAN CPAP -Continue home inhalers will bring these in - to bring in CPAP -Denies home oxygen use -Patient very adamant about not needing oxygen stating he tests his oxygen frequently we will continue to monitor encourage oxygen use as needed. Keep sats greater than 88% 3. CHF, HTN, CAD, HLD -Continue home medications - Monitor daily weights - Strict I/O, Low Na diet VTE prophylaxis: Heparin patient has been refusing. Encourage SCD O's CODE STATUS: DNR/DNI per patient Dispo: 2 to 3 days pending improvement.
[2021-08-01] MEDS: cefTRIAXone 1 GM in Premix Bag 1 BAG IV SCH (12:37)
[2021-08-02] MEDS: Acetaminophen 325 MG Tab PO PRN (02:46)
[2021-08-02 06:56] LABS: CARBON DIOXIDE,CO2 26.1 mmol/L (21.0-32.0); POTASSIUM,K 3.6 mmol/L (3.5-5.1)
[2021-08-02] MEDS: Heparin Sodium 5,000 Units/ML Vial SUBCUT SCH ×2 (09:55→21:03)
--- NOTE | 2021-08-02 11:29 | PCM.PN ---
- General Info Date of Service: 08/02/21 Admission Dx/Problem (Free Text): Admission Diagnosis/Problem Admission Diagnosis/Problem UTI, Urinary tract infectious disease Subjective Update: Patient reports he is feeling much better today as he knows he has been quite c ranky with the nurses. Denies any chest pain shortness of breath. Denies any abdominal pain. Reports that diarrhea is much improved. He reports that urgency frequency and dysuria have improved as well. He is eager to go home but understands lab work is not optimal at this point and would like for him to stay. I did discuss with this morning when she arrived at bedside regarding treatment and hopeful discharge in the next 1 to 2 days. She verbalized understanding and had no questions or concerns. Functional Status: Reports: Pain Controlled, Tolerating Diet, Ambulating, Urinating - Review of Systems General: Reports: No Symptoms. Denies: Fever, Weakness, Fatigue Pulmonary: Reports: No Symptoms. Denies: Shortness of Breath Cardiovascular: Reports: No Symptoms. Denies: Chest Pain Gastrointestinal: Reports: No Symptoms. Denies: Abdominal Pain, Nausea, Vomiting Genitourinary: Denies: Dysuria, Frequency, Urgency Musculoskeletal: Reports: No Symptoms Skin: Reports: No Symptoms Neurological: Reports: No Symptoms Psychiatric: Reports: No Symptoms - Patient Data Vitals - Most Recent: Last Vital Signs Temp 98.4 F 08/02/21 08:30 Pulse 88 08/02/21 08:30 Resp 20 08/02/21 08:30 BP 106/48 L 08/02/21 08:30 Pulse Ox 92 L 08/02/21 08:30 Weight - Most Recent: 130.544 kg I&O - Last 24 Hours: Intake & Output 08/01/21 08/02/21 08/02/21 22:59 06:59 14:59 Intake Total 950 960 Output Total 0 Balance 950 960 Lab Results Last 24 Hours: Laboratory Results - last 24 hr 08/02/21 08/02/21 Range/Units 05:20 05:20 WBC 17.39 H (4.0-11.0) K/uL RBC 4.51 (4.50-5.90) M/uL Hgb 13.2 (13.0-17.0) g/dL Hct 40.1 (38.0-50.0) % MCV 88.9 (80.0-98.0) fL MCH 29.3 (27.0-32.0) pg MCHC 32.9 (31.0-37.0) g/dL RDW Std Deviation 47.9 (28.0-62.0) fl RDW Coeff of Bailee 15 (11.0-15.0) % Plt Count 98 L (150-400) K/uL MPV 12.10 H (7.40-12.00) fL Add Manual Diff YES Neutrophils % (Manual) 89 H (48.0-80.0) % Band Neutrophils % 3 % Lymphocytes % (Manual) 6 L (16.0-40.0) % Monocytes % (Manual) 2 (0.0-15.0) % Nucleated RBC % 0.0 /100WBC Absolute Seg Neuts 15.5 H (1.4-5.7) Band Neutrophils # 0.5 Lymphocytes # (Manual) 1.0 (0.6-2.4) Monocytes # (Manual) 0.3 (0.0-0.8) Nucleated RBCs # 0 K/uL Sodium 136 (136-148) mmol/L Potassium 3.6 (3.5-5.1) mmol/L Chloride 102 (98-107) mmol/L Carbon Dioxide 26.1 (21.0-32.0) mmol/L BUN 15 (7.0-18.0) mg/dL Creatinine 1.4 H (0.8-1.3) mg/dL Est Cr Clr Drug Dosing 51.58 mL/min Estimated GFR (MDRD) 49.7 ml/min Glucose 122 H (74-106) mg/dL Calcium 8.7 (8.5-10.1) mg/dL Magnesium 2.1 (1.8-2.4) mg/dL Chris Results Last 24 Hours: Microbiology 07/31/21 12:06 Aerobic Blood Culture - Preliminary Blood - Venous - Lab Draw NO GROWTH AFTER 1 DAY Anaerobic Blood Culture - Preliminary NO GROWTH AFTER 1 DAY 07/31/21 12:09 Aerobic Blood Culture - Preliminary Blood - Venous NO GROWTH AFTER 1 DAY Anaerobic Blood Culture - Preliminary NO GROWTH AFTER 1 DAY Med Orders - Current: Current Medications Acetaminophen (Acetaminophen 325 Mg Tab) 650 mg PO Q4H PRN PRN Reason: Pain/Fever Last Admin: 08/02/21 02:46 Dose: 650 mg Documented by: Albuterol/Ipratropium (Albuterol/Ipratropium 3.0-0.5 Mg/3 Ml Neb Soln) 3 ml NEB Q4HRRT PRN PRN Reason: Shortness Of Breath/wheezing Docusate Sodium (Docusate Sodium 100 Mg Cap) 100 mg PO BID PRN PRN Reason: Constipation Heparin Sodium (Porcine) (Heparin Sodium 5,000 Units/Ml Vial) 5,000 units SUBCUT Q12HR [facility] Last Admin: 08/02/21 09:55 Dose: Not Given Documented by: Ceftriaxone Sodium/Dextrose 1 (gm/ Premix) 50 mls @ 100 mls/hr IV Q24H [facility] Last Admin: 08/01/21 12:37 Dose: 100 mls/hr Documented by: Ondansetron HCl (Ondansetron 4 Mg/2 Ml Sdv) 4 mg IVPUSH Q4H PRN PRN Reason: Nausea Sodium Chloride (Sodium Chloride 0.9% 2.5 Ml Syringe) 2.5 ml FLUSH ASDIRECTED PRN PRN Reason: Keep Vein Open Discontinued Medications Acetaminophen (Acetaminophen 500 Mg Tab) 1,000 mg PO ONETIME ONE Stop: 07/31/21 14:32 Last Admin: 07/31/21 14:36 Dose: 1,000 mg Documented by: Lactated Ringer's (Ringers, Lactated) 1,000 mls @ 999 mls/hr IV .BOLUS ONE Stop: 07/31/21 12:56 Last Admin: 07/31/21 12:26 Dose: 999 mls/hr Documented by: Ceftriaxone Sodium/Dextrose 2 (gm/ Premix) 50 mls @ 100 mls/hr IV ONETIME ONE Stop: 07/31/21 12:40 Last Admin: 07/31/21 12:26 Dose: 100 mls/hr Documented by: Lactated Ringer's (Ringers, Lactated) 1,000 mls @ 150 mls/hr IV ASDIRECTED [facility] Last Admin: 07/31/21 14:01 Dose: 150 mls/hr Documented by: Lactated Ringer's (Ringers, Lactated) 1,000 mls @ 150 mls/hr IV ONETIME ONE Stop: 07/31/21 22:24 Last Admin: 07/31/21 16:32 Dose: Not Given Documented by: Magnesium Sulfate 4 gm/ Premix 100 mls @ 50 mls/hr IV ONETIME ONE Stop: 08/01/21 10:14 Last Admin: 08/01/21 08:51 Dose: 50 mls/hr Documented by: Magnesium Oxide (Magnesium Oxide 400 Mg Tab) 800 mg PO ONETIME ONE Stop: 07/31/21 13:25 Last Admin: 07/31/21 13:42 Dose: 800 mg Documented by: Potassium Chloride (Potassium Chloride 20 Meq Tab.Er) 40 meq PO ONETIME ONE Stop: 08/01/21 08:16 Last Admin: 08/01/21 08:51 Dose: 40 meq Documented by: - Exam Quality Assessment: Supplemental Oxygen, DVT Prophylaxis General: Alert, Oriented, Cooperative, No Acute Distress Lungs: Clear to Auscultation, Normal Respiratory Effort Cardiovascular: Regular Rate, Regular Rhythm GI/Abdominal Exam: Normal Bowel Sounds, Non-Tender Extremities: Normal Inspection, Normal Range of Motion, Non-Tender, No Pedal Edema Wound/Incisions: Healing Well Neurological: No New Focal Deficit Psy/Mental Status: Alert, Normal Affect, Normal Mood - Patient Data Lab Results Last 24 hrs: Laboratory Results - last 24 hr 08/02/21 08/02/21 Range/Units 05:20 05:20 WBC 17.39 H (4.0-11.0) K/uL RBC 4.51 (4.50-5.90) M/uL Hgb 13.2 (13.0-17.0) g/dL Hct 40.1 (38.0-50.0) % MCV 88.9 (80.0-98.0) fL MCH 29.3 (27.0-32.0) pg MCHC 32.9 (31.0-37.0) g/dL RDW Std Deviation 47.9 (28.0-62.0) fl RDW Coeff of Bailee 15 (11.0-15.0) % Plt Count 98 L (150-400) K/uL MPV 12.10 H (7.40-12.00) fL Add Manual Diff YES Neutrophils % (Manual) 89 H (48.0-80.0) % Band Neutrophils % 3 % Lymphocytes % (Manual) 6 L (16.0-40.0) % Monocytes % (Manual) 2 (0.0-15.0) % Nucleated RBC % 0.0 /100WBC Absolute Seg Neuts 15.5 H (1.4-5.7) Band Neutrophils # 0.5 Lymphocytes # (Manual) 1.0 (0.6-2.4) Monocytes # (Manual) 0.3 (0.0-0.8) Nucleated RBCs # 0 K/uL Sodium 136 (136-148) mmol/L Potassium 3.6 (3.5-5.1) mmol/L Chloride 102 (98-107) mmol/L Carbon Dioxide 26.1 (21.0-32.0) mmol/L BUN 15 (7.0-18.0) mg/dL Creatinine 1.4 H (0.8-1.3) mg/dL Est Cr Clr Drug Dosing 51.58 mL/min Estimated GFR (MDRD) 49.7 ml/min Glucose 122 H (74-106) mg/dL Calcium 8.7 (8.5-10.1) mg/dL Magnesium 2.1 (1.8-2.4) mg/dL Result Diagrams: 08/02/21 05:20 08/02/21 05:20 Chris Results Last 24 hrs: Microbiology 07/31/21 12:06 Aerobic Blood Culture - Preliminary Blood - Venous - Lab Draw NO GROWTH AFTER 1 DAY Anaerobic Blood Culture - Preliminary NO GROWTH AFTER 1 DAY 07/31/21 12:09 Aerobic Blood Culture - Preliminary Blood - Venous NO GROWTH AFTER 1 DAY Anaerobic Blood Culture - Preliminary NO GROWTH AFTER 1 DAY Sepsis Event Note - Evaluation Sepsis Screening Result: No Definite Risk - Focused Exam Vital Signs: Vital Signs Temp Temp Pulse Resp BP Pulse Ox 08/02/21 08:30 98.4 F 88 20 106/48 L 92 L 08/02/21 03:46 99 F 08/02/21 02:46 100.6 F 08/02/21 02:45 100.6 F 91 20 125/71 92 L - Problem List & Annotations (1) UTI (urinary tract infection) SNOMED Code(s): 96442087 Code(s): N39.0 - URINARY TRACT INFECTION, SITE NOT SPECIFIED Status: Acute Current Visit: No Qualifiers: Urinary tract infection type: acute cystitis (2) CAD (coronary artery disease) SNOMED Code(s): 52490345 Code(s): I25.10 - ATHSCL HEART DISEASE OF [place] CORONARY ARTERY W/O ANG PCTRS Status: Chronic Current Visit: Yes Qualifiers: Coronary Disease-Associated Artery/Lesion type: [place] artery [place] vs. transplanted heart: [place] heart Associated angina: without angina Qualified Code(s): I25.10 - Atherosclerotic heart disease of [place] coronary artery without angina pectoris (3) MEAGAN on CPAP SNOMED Code(s): 73364406 Code(s): G47.33 - OBSTRUCTIVE SLEEP APNEA (ADULT) (PEDIATRIC); Z99.89 - DEPEN DENCE ON OTHER ENABLING MACHINES AND DEVICES Status: Chronic Current Visit: Yes (4) Obesity (BMI 35.0-39.9 without comorbidity) SNOMED Code(s): 313753681, 976873713 Code(s): E66.9 - OBESITY, UNSPECIFIED Status: Chronic Current Visit: Yes (5) H/O acute myocardial infarction SNOMED Code(s): 177209475 Code(s): I25.2 - OLD MYOCARDIAL INFARCTION Status: Chronic Priority: Low Current Visit: No (6) Rheumatoid arthritis SNOMED Code(s): 82521293 Code(s): M06.9 - RHEUMATOID ARTHRITIS, UNSPECIFIED Status: Chronic Priority: Low Current Visit: No Qualifiers: Rheumatoid arthritis location: unspecified site Rheumatoid factor presence: unspecified presence Qualified Code(s): M06.9 - Rheumatoid arthritis, unspecified (7) HTN (hypertension) SNOMED Code(s): 13971801 Code(s): I10 - ESSENTIAL (PRIMARY) HYPERTENSION Status: Chronic Priority: Low Current Visit: No Qualifiers: Hypertension type: essential hypertension (8) COPD (chronic obstructive pulmonary disease) SNOMED Code(s): 84742235 Code(s): J44.9 - CHRONIC OBSTRUCTIVE PULMONARY DISEASE, UNSPECIFIED Status: Chronic Current Visit: Yes (9) CHF (congestive heart failure) SNOMED Code(s): 42989965 Code(s): I50.9 - HEART FAILURE, UNSPECIFIED Status: Chronic Current Visi t: Yes Qualifiers: Heart failure type: combined systolic and diastolic Heart failure chronicity: chronic Qualified Code(s): I50.42 - Chronic combined systolic (congestive) and diastolic (congestive) heart failure - Problem List Review Problem List Initiated/Reviewed/Updated: Yes - My Orders Last 24 Hours: My Active Orders 08/01/21 12:00 cefTRIAXone [Rocephin in Dextrose,Iso-Osm 1 GM/50 ML] 1 gm Premix Bag 1 bag IV Q24H 08/03/21 05:11 BMP [BASIC METABOLIC PANEL,BMP] [CHEM] AM CBC WITH AUTO DIFF [HEME] AM MAGNESIUM [CHEM] AM - Plan Plan:: This 71-year-old male admitted with acute complicated UTI 1. Sepsis/acute complicated UTI -Leukocytosis improving but continues to remain high. -Continue Rocephin IV daily -Blood cultures negative and urine cultures pending 2. COPD, MEAGAN CPAP -Continue home inhaler -Continue CPAP -Denies home oxygen use -Patient very adamant about not needing oxygen stating he tests his oxygen frequently we will continue to monitor encourage oxygen use as needed. Keep sats greater than 88% 3. CHF, HTN, CAD, HLD -Continue home medications - Monitor daily weights - Strict I/O, Low Na diet VTE prophylaxis: Heparin patient has been refusing. Encourage SCD O's CODE STATUS: DNR/DNI per patient Dispo: Possible discharge in 1 to 2 days pending cultures
[2021-08-02] MEDS: cefTRIAXone 1 GM in Premix Bag 1 BAG IV SCH (11:32)
[2021-08-03 07:56] LABS: CARBON DIOXIDE,CO2 26.5 mmol/L (21.0-32.0); POTASSIUM,K 3.6 mmol/L (3.5-5.1)
[2021-08-03] MEDS: Heparin Sodium 5,000 Units/ML Vial SUBCUT SCH (08:41)
[2021-08-03] MEDS: cefTRIAXone 1 GM in Premix Bag 1 BAG IV SCH (11:35)
[2021-08-03 12:25] VITALS: BP 114/73; PULSE 63
--- NOTE | 2021-08-03 15:04 | PCM.DCSUM1 ---
Discharge Summary - Discharge Data Discharge Date: 08/03/21 Discharge Disposition: Home, Self-Care 01 Condition: Good - Referral to Home Health Primary Care Physician: Rich Eduardo MD - Patient Summary/Data Hospital Course: 71-year-old man with past medical history of MEAGAN on CPA, RA, hypertension, hyperlipidemia, CAD, combined systolic and diastolic CHF, and COPD oxygen dependent who was admitted for sepsis from UTI. He prsented with dyuria and urinary frequency. He was noted to have a leukocytosis significant at 22,000. Platelet count 117,000. Sodium 138 potassium 4.0 BUN 14 creatinine 1.4. Glucose 132 lactic acid 1.2. Bilirubin 1.2. UA obtained which shows 20-30 WBCs +1 bacteria small leukocyte esterase positive nitrites. Chest x-ray obtained which shows stable streaky opacities in the left lower bases which may represent atelectasis. Stable cardiomegaly. On arrival patient had tachypnea 22 oxygen saturation 91% blood pressure 146/78 pulse was [address] scan of abdomen was unremarkable. He was treated with Rocephin. Today he is requesting discharge. He was discharged home on Keflex to follow up with his primary care provider. Culture sensitivities are pending but as patient's symptoms and leukocytosis resolved so will call if cultures show resistance. - Patient Instructions Diet: Usual Diet as Tolerated Activity: As Tolerated Other/Special Instructions: Notify provider of any fever or abdominal discomfort. Start taking Keflex tomorrow(08/04/21). Follow up with your primary care provider - Discharge Plan Prescriptions/Med Rec: cephALEXin [Keflex] 500 mg PO BID #10 cap Home Medications: Home Meds Acetaminophen [Tylenol Extra Strength] 1 tab PO BID 07/07/15 [History] Aspirin [Halfprin] 1 tab PO DAILY 07/07/15 [History] Fenofibrate Nanocrystallized [Fenofibrate] 145 mg PO DAILY 07/07/15 [History] Olmesartan Medoxomil [Benicar] 40 mg PO DAILY 07/07/15 [History] Omeprazole 20 mg PO Q2D 07/07/15 [History] Sildenafil Citrate [Viagra] 1 tab PO ASDIRECTED 07/07/15 [History] Simvastatin [Zocor] 20 mg PO BEDTIME 08/22/15 [History] amLODIPine Besylate [Amlodipine Besylate] 10 mg PO DAILY 07/07/15 [History] carvediloL [Carvedilol] 12.5 mg PO BID 07/07/15 [History] Budesonide/Formoterol Fumarate [Symbicort 160-4.5 Mcg Inhaler] 2 puff INH BID 08/20/20 [History] cycloSPORINE [Restasis Multidose] 1 drop EYEBOTH BID 08/20/20 [History] cephALEXin [Keflex] 500 mg PO BID #10 cap 08/03/21 [Rx] Oxygen Therapy Mode: Nasal Cannula Oxygen Flow Rate (L/min): 2 Patient Handouts: Urinary Tract Infection, Adult, Cephalexin Tablets or Capsules Referrals: Rich Eduardo MD [Primary Care Provider] - 08/13/21 3:45 pm - Discharge Summary/Plan Comment DC Time >30 min.: No Total # of Minutes for Discharge Time: 25 - Patient Data Vitals - Most Recent: Last Vital Signs Temp 37.1 C 08/03/21 12:00 Pulse 63 08/03/21 12:00 Resp 16 08/03/21 12:00 BP 114/73 08/03/21 12:00 Pulse Ox 92 L 08/03/21 12:00 Weight - Most Recent: 130.544 kg I&O - Last 24 hours: Intake & Output 08/02/21 08/03/21 08/03/21 22:59 06:59 14:59 Intake Total 750 700 Output Total 0 Balance 750 700 Lab Results - Last 24 hrs: Laboratory Results - last 24 hr 08/03/21 08/03/21 Range/Units 07:05 07:05 WBC 7.02 (4.0-11.0) K/uL RBC 4.50 (4.50-5.90) M/uL Hgb 13.1 (13.0-17.0) g/dL Hct 39.6 (38.0-50.0) % MCV 88.0 (80.0-98.0) fL MCH 29.1 (27.0-32.0) pg MCHC 33.1 (31.0-37.0) g/dL RDW Std Deviation 47.1 (28.0-62.0) fl RDW Coeff of Bailee 15 (11.0-15.0) % Plt Count 172 (150-400) K/uL MPV 11.30 (7.40-12.00) fL Neut % (Auto) 74.3 (48.0-80.0) % Lymph % (Auto) 13.1 L (16.0-40.0) % [place] % (Auto) 11.4 (0.0-15.0) % Eos % (Auto) 0.9 (0.0-7.0) % Baso % (Auto) 0.3 (0.0-1.5) % Neut # (Auto) 5.2 (1.4-5.7) K/uL Lymph # (Auto) 0.9 (0.6-2.4) K/uL [place] # (Auto) 0.8 (0.0-0.8) K/uL Eos # (Auto) 0.1 (0.0-0.7) K/uL Baso # (Auto) 0.0 (0.0-0.1) K/uL Nucleated RBC % 0.0 /100WBC Nucleated RBCs # 0 K/uL Sodium 136 (136-148) mmol/L Potassium 3.6 (3.5-5.1) mmol/L Chloride 102 (98-107) mmol/L Carbon Dioxide 26.5 (21.0-32.0) mmol/L BUN 18 (7.0-18.0) mg/dL Creatinine 1.3 (0.8-1.3) mg/dL Est Cr Clr Drug Dosing 55.55 mL/min Estimated GFR (MDRD) 54.1 ml/min Glucose 123 H (74-106) mg/dL Calcium 8.4 L (8.5-10.1) mg/dL Magnesium 1.9 (1.8-2.4) mg/dL ETIENNE Results - Last 24 hrs: Microbiology 07/31/21 12:06 Aerobic Blood Culture - Preliminary Blood - Venous - Lab Draw NO GROWTH AFTER 3 DAYS Anaerobic Blood Culture - Preliminary NO GROWTH AFTER 3 DAYS 07/31/21 12:09 Aerobic Blood Culture - Preliminary Blood - Venous NO GROWTH AFTER 3 DAYS Anaerobic Blood Culture - Preliminary NO GROWTH AFTER 3 DAYS 07/31/21 12:00 Urine Culture - Preliminary Urine Escherichia Coli Med Orders - Current: Current Medications Acetaminophen (Acetaminophen 325 Mg Tab) 650 mg PO Q4H PRN PRN Reason: Pain/Fever Last Admin: 08/02/21 02:46 Dose: 650 mg Documented by: Albuterol/Ipratropium (Albuterol/Ipratropium 3.0-0.5 Mg/3 Ml Neb Soln) 3 ml NEB Q4HRRT PRN PRN Reason: Shortness Of Breath/wheezing Docusate Sodium (Docusate Sodium 100 Mg Cap) 100 mg PO BID PRN PRN Reason: Constipation Heparin Sodium (Porcine) (Heparin Sodium 5,000 Units/Ml Vial) 5,000 units SUBCUT Q12HR [facility] Last Admin: 08/03/21 08:41 Dose: Not Given Documented by: Ceftriaxone Sodium/Dextrose 1 (gm/ Premix) 50 mls @ 100 mls/hr IV Q24H [facility] Last Admin: 08/03/21 11:35 Dose: 100 mls/hr Documented by: Ondansetron HCl (Ondansetron 4 Mg/2 Ml Sdv) 4 mg IVPUSH Q4H PRN PRN Reason: Nausea Sodium Chloride (Sodium Chloride 0.9% 2.5 Ml Syringe) 2.5 ml FLUSH ASDIRECTED PRN PRN Reason: Keep Vein Open Discontinued Medications Acetaminophen (Acetaminophen 500 Mg Tab) 1,000 mg PO ONETIME ONE Stop: 07/31/21 14:32 Last Admin: 07/31/21 14:36 Dose: 1,000 mg Documented by: Lactated Ringer's (Ringers, Lactated) 1,000 mls @ 999 mls/hr IV .BOLUS ONE Stop: 07/31/21 12:56 Last Admin: 07/31/21 12:26 Dose: 999 mls/hr Documented by: Ceftriaxone Sodium/Dextrose 2 (gm/ Premix) 50 mls @ 100 mls/hr IV ONETIME ONE Stop: 07/31/21 12:40 Last Admin: 07/31/21 12:26 Dose: 100 mls/hr Documented by: Lactated Ringer's (Ringers, Lactated) 1,000 mls @ 150 mls/hr IV ASDIRECTED [facility] Last Admin: 07/31/21 14:01 Dose: 150 mls/hr Documented by: Lactated Ringer's (Ringers, Lactated) 1,000 mls @ 150 mls/hr IV ONETIME ONE Stop: 07/31/21 22:24 Last Admin: 07/31/21 16:32 Dose: Not Given Documented by: Magnesium Sulfate 4 gm/ Premix 100 mls @ 50 mls/hr IV ONETIME ONE Stop: 08/01/21 10:14 Last Admin: 08/01/21 08:51 Dose: 50 mls/hr Documented by: Magnesium Oxide (Magnesium Oxide 400 Mg Tab) 800 mg PO ONETIME ONE Stop: 07/31/21 13:25 Last Admin: 07/31/21 13:42 Dose: 800 mg Documented by: Potassium Chloride (Potassium Chloride 20 Meq Tab.Er) 40 meq PO ONETIME ONE Stop: 08/01/21 08:16 Last Admin: 08/01/21 08:51 Dose: 40 meq Documented by:
== END 2021-08-03 16:10 | disposition home or self-care (01) | DRG 872 ==
LOC: MW.ED 10:43 → MW.MS 14:07
PROVIDERS: ADMIT Internal Medicine; ATTEND Internal Medicine
DX: A41.9 Sepsis, unspecified organism (principal); N39.0 Urinary tract infection, site not specified; N30.00 Acute cystitis without hematuria; I50.42 Chronic combined systolic (congestive) and diastolic (congestive) heart failure; Z66 Do not resuscitate; J44.9 Chronic obstructive pulmonary disease, unspecified; G47.33 Obstructive sleep apnea (adult) (pediatric); I25.10 Atherosclerotic heart disease of native coronary artery without angina pectoris; Z20.822 Contact with and (suspected) exposure to COVID-19; E78.5 Hyperlipidemia, unspecified; E78.00 Pure hypercholesterolemia, unspecified; I10 Essential (primary) hypertension; K44.9 Diaphragmatic hernia without obstruction or gangrene; E66.9 Obesity, unspecified; M06.9 Rheumatoid arthritis, unspecified; I11.0 Hypertensive heart disease with heart failure; H04.123 Dry eye syndrome of bilateral lacrimal glands; M19.90 Unspecified osteoarthritis, unspecified site; Z79.82 Long term (current) use of aspirin; Z79.51 Long term (current) use of inhaled steroids; Z79.899 Other long term (current) drug therapy; I25.2 Old myocardial infarction; Z68.39 Body mass index [BMI] 39.0-39.9, adult; Z86.16 Personal history of COVID-19; Z79.52 Long term (current) use of systemic steroids
CPT/HCPCS: 36415; 71045; 80048; 81001; 82247; 83605; 83735; 84450; 85025; 85610; 87040 ×2; 87086; 87088; 87186; 96365; 99285; A9270; J0696; J7120 ×2; U0002; 74176; 74176-26; 94660; J1644; J3475

== ENCOUNTER 2022-09-20 07:15 | Emergency (ER) | payer MEDICARE, BC ==
[2022-09-20 07:34] VITALS: PULSE 72
== END 2022-09-20 07:54 | disposition home or self-care (01) ==
LOC: MW.ED 07:15
DX: T16.2XXA Foreign body in left ear, initial encounter (principal); E78.00 Pure hypercholesterolemia, unspecified; I10 Essential (primary) hypertension; I25.10 Atherosclerotic heart disease of native coronary artery without angina pectoris; I25.2 Old myocardial infarction; J44.9 Chronic obstructive pulmonary disease, unspecified; M06.9 Rheumatoid arthritis, unspecified; E66.9 Obesity, unspecified; Z68.41 Body mass index [BMI] 40.0-44.9, adult; Z79.82 Long term (current) use of aspirin; Z79.899 Other long term (current) drug therapy
CPT/HCPCS: 69200; 99282

== ENCOUNTER 2024-04-06 06:30 | Emergency (ER) | payer MEDICARE, BC ==
[2024-04-06] MEDS: Sodium Chloride 0.9% 10 ML Syringe FLUSH PRN (06:44)
[2024-04-06] MEDS: Sodium Chloride 0.9% 2.5 ML Syringe FLUSH PRN (06:44)
[2024-04-06 06:52] LABS: PH,VENOUS 7.4 (7.31-7.41)
[2024-04-06 07:04] LABS: INR 1.09 (0.86-1.11)
[2024-04-06] MEDS: Albuterol/Ipratropium 3.0-0.5 MG/3 ML Neb Soln NEB ONE (07:05)
[2024-04-06] MEDS: methylPREDNISolone Sodium Succinate 125 MG/2 ML SDV IVPUSH ONE (07:06)
[2024-04-06 07:16] LABS: A/G RATIO 0.9 (0.9-1.6); ALBUMIN 3.7 g/dL (3.4-5.0); BILIRUBIN TOTAL 1.1 mg/dL (0.2-1.0); CALCIUM 9.1 mg/dL (8.5-10.1); CARBON DIOXIDE,CO2 26.5 mmol/L (21.0-32.0); CREATININE 1.3 mg/dL (0.8-1.3); EST CRCL DRUG DOSING (CG) 53.06 mL/min; POTASSIUM,K 4.1 mmol/L (3.5-5.1); PROTEIN TOTAL,TP 7.7 g/dL (6.4-8.2)
[2024-04-06 07:28] LABS: BASOPHILS ABSOLUTE AUTO 0.03 K/uL (0.00-0.20); BASOPHILS PERCENT AUTO 0.4 % (0.0-1.0); EOSINOPHILS ABSOLUTE AUTO 0.09 K/uL (0.00-0.45); EOSINOPHILS PERCENT AUTO 1.2 % (0.0-6.0); HEMATOCRIT 42.2 % (42.0-52.0); HEMOGLOBIN 13.4 g/dL (14.0-18.0); IMMATURE GRAN ABSOLUTE AUTO 0.02 K/uL (0.00-0.05); IMMATURE GRAN PERCENT AUTO 0.3 % (0.0-0.4); LYMPHOCYTES ABSOLUTE AUTO 0.84 K/uL (1.00-4.80); LYMPHOCYTES PERCENT AUTO 11.3 % (24.0-44.0); MEAN CORPUSCULAR HEMOGLOBIN 27.6 pg (28.0-32.0); MEAN CORPUSCULAR HGB CONC 31.8 g/dL (32.0-36.0); MEAN CORPUSCULAR VOLUME 86.8 fL (83.0-99.0); MEAN PLATELET VOLUME 11.2 fL (9.4-12.4); MONOCYTES ABSOLUTE AUTO 0.77 K/uL (0.00-0.80); MONOCYTES PERCENT AUTO 10.3 % (0.0-8.0); NEUTROPHILS ABSOLUTE AUTO 5.69 K/uL (1.80-7.70); NEUTROPHILS PERCENT AUTO 76.5 % (41.0-71.0); RED BLOOD CELL COUNT 4.86 M/uL (4.52-5.90); WHITE BLOOD CELL COUNT,WBC 7.44 K/uL (3.9-11.3)
[2024-04-06 07:33] LABS: PLATELET COUNT,PLT 178 K/uL (150-400)
[2024-04-06 07:44] LABS: MAGNESIUM 1.6 mg/dL (1.8-2.4)
[2024-04-06] MEDS: Furosemide 40 MG/4 ML VIAL IVPUSH ONE (07:47)
[2024-04-06] MEDS: Azithromycin 500 MG in Sodium Chloride 0.9% 250 ML IV ONE (07:47)
[2024-04-06] MEDS: Heparin Sodium/0.45% NaCl 500 ML IV SCH (09:10)
[2024-04-06] MEDS: Aspirin 81 MG Tab.Chew PO STA (09:10)
[2024-04-06] MEDS: Heparin Sodium 5,000 Units/ML Vial IV ONE (09:11)
[2024-04-06 11:02] VITALS: BP 150/73; PULSE 70
== END 2024-04-06 11:33 ==
LOC: MW.ED 06:30
DX: I21.4 Non-ST elevation (NSTEMI) myocardial infarction (principal); J96.91 Respiratory failure, unspecified with hypoxia; I11.0 Hypertensive heart disease with heart failure; I50.9 Heart failure, unspecified; E78.00 Pure hypercholesterolemia, unspecified; E66.9 Obesity, unspecified; Z79.82 Long term (current) use of aspirin; Z79.2 Long term (current) use of antibiotics; Z79.899 Other long term (current) drug therapy; Z68.38 Body mass index [BMI] 38.0-38.9, adult
CPT/HCPCS: 36415; 71045; 80053; 82803; 83735; 83880; 84484; 85025; 85379; 85610; 85730; 93005; 96365; 96366; 96367; 96375; 99285; A9270; J0456; J1644; J1940; J2930; J3490; J7050; 93010; J7620-GY